=== PATIENT | female | born 1950 | race Caucasian/White ===

== ENCOUNTER 2019-09-10 08:01 | Day surgery (SDC) | payer MEDICARE, OTHER ==
[2019-09-08 15:08] LABS: Basophils # (auto) 0 10 ^3/uL (0-0.2); Basophils % (auto) 0.6 % (0.0-2.0); Eosinophils # (auto) 0 10 ^3/uL (0-0.8); Eosinophils % (auto) 0.6 % (0.0-7.0); Hematocrit 40.9 % (36.0-46.0); Hemoglobin 13.5 g/dL (12.2-16.2); Lymphocytes % (auto) 12.9 % (10.0-50.0); Mean Corpuscular Hemoglobin 31.9 pg (28.0-32.0); Mean Corpuscular Hgb Conc. 32.9 g/dL (32.0-36.0); Mean Corpuscular Volume 96.7 fL (80.0-100.0); Monocytes # (auto) 0.4 10 ^3/uL (0-1.3); Monocytes % (auto) 4.9 % (0.0-12.0); Neutrophils # (auto) 6.1 10 ^3/uL (1.6-8.6); Platelet Count (auto) 261 10^3/uL (140-450); Red Blood Cells 4.23 10^6/uL (4.0-5.20); Red Cell Distribution Width 13.7 % (11.8-14.3); White Blood Cell 7.6 10^3/uL (4.4-10.8)
[2019-09-08 15:27] LABS: INR 0.96 (0.9-1.15); Partial Thromboplastin Time 27.2 sec (23.64-32.05)
[~2019-09-10] VITALS: Ht 154.9 cm; Wt 70.3 kg
[~2019-09-10 08:01] MED LIST: ADAL20KI SC; ALPR0.254 PO; ATOR20TA50 PO; DICY20TA66 PO; DISO100C4 PO; ESOM20CA PO; EST0625T PO; LEVO88TA4 PO; PANT40TA2 PO; PRE1T PO; PREMARIN PO
[2019-09-10] MEDS ORDERED: NALOXONE HCL 0.4 MG/ML VIAL ONE (08:31)
[2019-09-10] MEDS ORDERED: SODIUM CHLORIDE LOCK 10 ML ONE (08:31)
[2019-09-10] MEDS ORDERED: FLUMAZENIL 0.1 MG/ML INJ 10ML MDV IV ONE (08:31)
[2019-09-10] MEDS ORDERED: LIDOCAINE VISCOUS 2% 15ML UD ONE (08:32)
[2019-09-10] MEDS ORDERED: diphenhdrAMINE HCL 50 MG/1 ML VL ONE (08:33)
[2019-09-10] MEDS: fentaNYL CITRATE 100 MCG/2 ML VL ONE ×4 (09:03→09:22)
[2019-09-10] MEDS: MIDAZOLAM HCL 5 MG/ML-1ML VIAL ONE ×5 (09:03→09:22)
[2019-09-10 10:02] VITALS: BP 143/65
== END 2019-09-10 10:12 | disposition home or self-care (01) ==
LOC: GI 08:01
PROVIDERS: ATTEND Internal Medicine Gastroenterology
DX: K92.1 Melena (principal); Z11.59 Encounter for screening for other viral diseases; D12.5 Benign neoplasm of sigmoid colon; K29.70 Gastritis, unspecified, without bleeding; K64.8 Other hemorrhoids; Z98.890 Other specified postprocedural states
CPT/HCPCS: 36415; 43239; 45380; 85025; 85610; 85730; 87635; 88305; 88342; J1200; J2250; J3010; J7030; U0003; G0500

== ENCOUNTER 2022-02-20 12:56 | Emergency (ER) | payer MEDICARE, OTHER ==
[~2022-02-20] VITALS: Ht 157.5 cm; Wt 67.9 kg
[~2022-02-20 12:56] MED LIST changes: +DICY20TA PO; -DICY20TA66 PO
[2022-02-20 15:22] VITALS: BP 141/79
[2022-02-20] MEDS ORDERED: HYD1TP TOP (17:09)
== END 2022-02-20 17:25 | disposition home or self-care (01) ==
LOC: ER 12:56
DX: L25.9 Unspecified contact dermatitis, unspecified cause (principal); Z88.6 Allergy status to analgesic agent; Z88.1 Allergy status to other antibiotic agents; Z88.0 Allergy status to penicillin; Z88.2 Allergy status to sulfonamides; Z88.8 Allergy status to other drugs, medicaments and biological substances; Z90.49 Acquired absence of other specified parts of digestive tract
CPT/HCPCS: 73590

== ENCOUNTER 2024-07-14 10:28 | Inpatient (IN) | payer MEDICARE, OTHER ==
[~2024-07-14] VITALS: Ht 160 cm; Wt 71.7 kg
[~2024-07-14 10:28] MED LIST changes: +CYAN100088 PO; +HYD1TP TOP; +LEFL20TA PO
--- NOTE | 2024-07-14 10:37 | ED.PDOC ---
History of Present Illness HPI Comments 74 year old female BRITTANIE presents to the ED with chief complaint of flu-like symptoms and syncope. EMS reports patient has been experiencing flu-like symptoms that include cough, nasal congestion, SOB, nausea, vomiting, and diarrhea for the past week now. EMS relays that the patient also had a syncopal episode with fall when going to the bathroom today, believing that she fell on both of her knees. EMS notes patient's O2 saturation was at 91% on RA, 97% on 4L of O2 via NC. Patient denies any chest pain, dizziness, fever, chills, abdominal pain, numbness, or weakness. Time Seen by MD: 10:33 Primary Care Provider: NAA Reviewed Notes: Nurses Notes, Computer Aide Notes, Medications, Allergies Allergies: Coded Allergies: Aspirin (Verified Allergy, Unknown, 09/08/19) Clarithromycin (Verified Allergy, Unknown, 09/08/19) Clindamycin (Verified Allergy, Unknown, 09/08/19) Doxycycline (Verified Allergy, Unknown, 09/08/19) Levofloxacin (Verified Allergy, Unknown, 09/08/19) Metoprolol (Verified Allergy, Unknown, 09/08/19) Nitrofurantoin (Verified Allergy, Unknown, 09/08/19) Penicillins (Verified Allergy, Unknown, 09/08/19) Sulfa Drugs (Verified Allergy, Unknown, 09/08/19) Sulfamethoxazole w/Trimethoprim (Verified Allergy, Unknown, 09/08/19) Tetracycline (Verified Allergy, Unknown, 09/08/19) Uncoded Allergies: NITRO (Allergy, Unknown, 07/14/24) PENICILLIN (Allergy, Unknown, 07/14/24) SULFA (Allergy, Unknown, 07/14/24) Home Meds Active Scripts Hydrocortone (Hydrocortisone 1%) 1 Applic Ap, 1 APPLIC TOP BID for 7 Days, #30 GRAMS 0 Refills Prov:SARA KEVIN [employer]ING SUPERVISOR 02/20/22 Reported Medications Esomeprazole Magnesium Trihydr (Nexium) 20 Mg Cap, 1 CAP PO DAILY PRN for HEARTBURN, #30 CAP 2 Refills 09/08/19 Atorvastatin Calcium (ATORVASTATIN CALCIUM) 20 Mg Tab, 1 TAB PO DAILY, #30 TAB 5 Refills 09/08/19 Levothyroxine Sodium (Levothyroxine Sodium) 88 Mcg Tab, 88 MCG PO QAM for 30 Days, MCG 09/08/19 Alprazolam (Alprazolam) 0.25 Mg Tab, 1 TAB PO BID PRN for ANXIETY, #60 TAB 09/08/19 Dicyclomine Hcl (Dicyclomine Hcl) 20 Mg Tab, 20 MG PO QID PRN for ABD CRAMPING for 30 Days, MG 09/08/19 Pantoprazole Sodium Sesquihydr (Protonix) 40 Mg Tab, 40 MG PO DAILY, #30 TAB 09/08/19 Estrogens, Conjugated (PREMARIN TABLET) 0.625 Mg Tb, 0.625 MG PO DAILY, MG 09/08/19 Prednisone (PREDNISONE) 1 Mg Tb, 4 TAB PO DAILY, #360 TAB 3 Refills 09/08/19 Adalimumab (Humira) Unknown Strength Kit, SC QWEEKLY, KIT 09/08/19 Disopyramide Phosphate (Disopyramide Phosphate) 100 Mg Cap, 100 MG PO BID, CAP 09/08/19 [Premarin] No Conflict Check, 0.625 MG PO BID 04/14/12 Information Source: Patient, Emergency Med Personnel Mode of Arrival: EMS Severity: Moderate Timing: Days Duration: Since onset Prehospital treatment: None Past Medical History PAST MEDICAL HISTORY: HTN, [place], UTI'S Surgical History: Cholecystectomy [employer]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 History Family History Family History: Unknown Social History Smoker: Non-Smoker Alcohol: Denies ETOH Use Drugs: Denies Drug Use Lives In: Home Constitutional: denies: chills, diaphoresis, fatigue, fever, malaise, sweats, weakness, others EENTM: reports: nose congestion; denies: blurred vision, double vision, ear bleeding, ear discharge, ear drainage, ear pain, ear ringing, eye pain, eye redness, hearing loss, mouth pain, mouth swelling, nasal discharge, nose bl eeding, nose pain, photophobia, tearing, throat pain, throat swelling, voice changes, others Respiratory: reports: cough, shortness of breath; denies: hemoptysis, orthopnea, SOB at rest, SOB with excertion, stridor, wheezing, others Cardiovascular: reports: syncope; denies: chest pain, dizzy spells, diaphoresis, Dyspnea on exertion, edema, irregular heart beat, left arm pain, lightheadedness, palpitations, PND, others Gastrointestinal: reports: diarrhea, nausea, vomiting; denies: abdomen distended, abdominal pain, blood streaked bowels, constipated, dysphagia, difficulty swallowing, hematemesis, melena, poor appetite, poor fluid intake, rectal bleeding, rectal pain, others Genitourinary: denies: abnormal vagina bleeding, burning, dyspareunia, dysuria, flank pain, frequency, hematuria, incontinence, pain, , vagina discharge, urgency, others Neurological: denies: dizziness, fainting, headache, left sided numbness, left sided weakness, numbness, paresthesia, pre-existing deficit, right sided numbness, right sided weakness, seizure, speech problems, tingling, tremors, weakness, others Musculoskeletal: reports: others (Bilateral knee pain); denies: back pain, gout, joint pain, joint swelling, muscle pain, muscle stiffness, neck pain Integumetry: denies: bruises, change in color, change in hair/nails, dryness, laceration, lesions, lumps, rash, wounds, others Allergic/Immunocompromised: denies: Difficulty Healing, Frequent Infections, Hives, Itching, others Hematologic/Lymphatic: denies: anemia, blood clots, easy bleeding, easy bruising, swollen glands, others Endocrine: denies: excessive hunger, excessive sweating, excessive thirst, excessive urination, flushing, intolerance to cold, intolerance to heat, unexplained weight gain, unexplained weight loss, others Psychiatric: denies: anxiety, bipolar disorder, depression, hopeless, panic disorder, schizophrenia, sleepless, suicidal, others All Other Systems: Reviewed and Negative Physical Exam General Appearance: Moderate Distress, Normal HEENT: Normal ENT Inspection, PERRL/EOMI Neck: Full Range of Motion, Non-Tender, Normal, Normal Inspection Respiratory: Chest Non-Tender, Respiratory Distress, Other (Coarse breath sounds) Cardiovascular: No Edema, No JVD, No Murmur, No Gallop, Normal Peripheral Pulses, Tachycardia Breast Exam: Deferred Gastrointestinal: No Organomegaly, Non Tender, No Pulsatile Mass, Normal Bowel Sounds, Soft Genitalia: Deferred Pelvic: Deferred Rectal: Deferred Extremities: No calf tenderness, Normal capillary refill, Normal inspection, Normal range of motion, Non-tender, No pedal edema Musculoskeletal : Apperance: Normal Neurologic: Alert, 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 Was a procedure done?: No Differential Dx Considerations may include: Pneumonitis Electrolyte imbalance X-Ray, Labs, Meds, VS Vital Signs Date Time Temp Pulse Resp B/P (MAP) Pulse Ox O2 Delivery O2 Flow Rate FiO2 07/14/24 11:04 98.0 124 20 122/61 (81) 97 98.0 07/14/24 10:31 122 Lab Test 07/14/24 11:14 Range/Units White Blood Count 6.6 4.4-10.8 10^3/uL Red Blood Count 4.15 4.0-5.20 10^6/uL Hemoglobin 13.5 12.2-16.2 g/dL Hematocrit 40.3 36.0-46.0 % Mean Corpuscular Volume 97.2 80.0-100.0 fL Mean Corpuscular Hemoglobin 32.5 H 28.0-32.0 pg Mean Corpuscular Hemoglobin Concent 33.5 32.0-36.0 g/dL Red Cell Distribution Width 14.4 H 11.8-14.3 % Platelet Count 182 140-450 10^3/uL Mean Platelet Volume 8.2 6.9-10.8 fL Neutrophils (%) (Auto) 69.7 37.0-80.0 % Lymphocytes (%) (Auto) 13.0 10.0-50.0 % Monocytes (%) (Auto) 16.9 H 0.0-12.0 % Eosinophils (%) (Auto) 0.1 0.0-7.0 % Basophils (%) (Auto) 0.3 0.0-2.0 % Neutrophils # (Auto) 4.6 1.6-8.6 10 ^3/uL Lymphocytes # (Auto) 0.9 0.4-5.4 10 ^3/uL Monocytes # (Auto) 1.1 0-1.3 10 ^3/uL Eosinophils # (Auto) 0 0-0.8 10 ^3/uL Basophils # (Auto) 0 0-0.2 10 ^3/uL Nucleated Red Blood Cells 0.6 % Sodium Level 135 L 136-145 mmol/L Potassium Level 3.7 3.5-5.1 mmol/L Chloride Level 100 98-107 mmol/L Carbon Dioxide Level 26 20-31 mmol/L Anion Gap 9 5-15 Blood Urea Nitrogen 14 9-23 mg/dL Creatinine 1.08 H 0.550-1.02 mg/dL Glomerular Filtration Rate Calc 54 >90 mL/min BUN/Creatinine Ratio 13.0 10.0-20.0 Serum Glucose 78 74-106 mg/dL Calcium Level 8.6 L 8.7-10.4 mg/dL Troponin I High Sensitivity 266 *H </=34 ng/L Patient alert. Complaining of shortness a breath. Tachycardia. Placed on oxygen. Possible pneumonitis. Possible pneumonia. Establish intravenous access. Was given steroid. Explained to the patient. Continue monitoring. EKG reviewed does not show any acute changes. Chest XR: FINDINGS: Lines and Tubes: None Lungs: No focal consolidation. Pleura: No effusion. No pneumothorax. Cardiomediastinal contours: Unremarkable Bones: No acute osseous abnormality. IMPRESSION: No acute cardiopulmonary disease. Time of 1ST Reevaluation: 11:33 Reevaluation 1ST: Unchanged Patient Education/Counseling: Diagnosis, Treatment Family Education/Counseling: No Family Present Additional Information Previous visit documents reviewed: 02/20/22 contact dermatitis The following tests were ordered, and results were reviewed by me: Additional Information was gathered from interviewing the following independent historians: EMS I reviewed and agreed with the following test results read by other providers: I discussed treatment and results with medical personnel and: Patient Departure 1 Departure Time of Disposition: 10:57 Impression: Primary Impression: Pneumonitis Additional Impression: Near syncope Disposition: ADMITTED INPATIENT Admit to: Med Surg Condition: Guarded Critical Care Note Critical Care Time?: Yes (90 min-critical care time only) Critical care comment: Placed on oxygen Stability Stability form required: No Heart Score Heart Score: Heart Score Response (Comments) Value History Slightly Suspicious 0 EKG Normal 0 Age >65 2 Risk Factors >3 or Hx ASHD 2 Troponin Normal limit 0 Total 4 I personally scribed for RAJEEV WALDROP MD ([email or web address]) on 07/14/24 at 10:37. Electronically submitted by Colby Deutsch ([email or web address]). I personally scribed for RAJEEV WALDROP MD ([email or web address]) on 07/14/24 at 13:16. Electronically submitted by Colby Deutsch ([email or web address]). RAJEEV WALDROP MD Jul 14, 2024 10:37
--- NOTE | 2024-07-14 10:51 | ECG ---
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
[2024-07-14 11:39] LABS: Chloride 100 mmol/L (98-107); Potassium 3.7 mmol/L (3.5-5.1)
[2024-07-14 11:40] LABS: Anion Gap 9 (5-15); Carbon Dioxide 26 mmol/L (20-31)
[2024-07-14 11:44] LABS: Basophils # (auto) 0 10 ^3/uL (0-0.2); Basophils % (auto) 0.3 % (0.0-2.0); Eosinophils # (auto) 0 10 ^3/uL (0-0.8); Eosinophils % (auto) 0.1 % (0.0-7.0); Hematocrit 40.3 % (36.0-46.0); Hemoglobin 13.5 g/dL (12.2-16.2); Lymphocytes # (auto) 0.9 10 ^3/uL (0.4-5.4); Mean Corpuscular Hemoglobin 32.5 pg (28.0-32.0); Mean Corpuscular Hgb Conc. 33.5 g/dL (32.0-36.0); Mean Corpuscular Volume 97.2 fL (80.0-100.0); Monocytes # (auto) 1.1 10 ^3/uL (0-1.3); Monocytes % (auto) 16.9 % (0.0-12.0); Neutrophils # (auto) 4.6 10 ^3/uL (1.6-8.6); Neutrophils % (auto) 69.7 % (37.0-80.0); Nucleated Red Blood Cells % 0.6 %; Platelet Count (auto) 182 10^3/uL (140-450); Red Blood Cells 4.15 10^6/uL (4.0-5.20); Red Cell Distribution Width 14.4 % (11.8-14.3); White Blood Cell 6.6 10^3/uL (4.4-10.8)
[2024-07-14 11:45] LABS: Blood Urea Nitrogen 14 mg/dL (9-23); Glucose 78 mg/dL (74-106)
[2024-07-14 11:48] LABS: Calcium 8.6 mg/dL (8.7-10.4); Sodium 135 mmol/L (136-145)
--- NOTE | 2024-07-14 12:31 | DVH ---
EXAM: XY CHEST PORTABLE Indication: cough Technique: Single frontal view of the chest was obtained Comparison: None FINDINGS: Lines and Tubes: None Lungs: No focal consolidation. Pleura: No effusion. No pneumothorax. Cardiomediastinal contours: Unremarkable Bones: No acute osseous abnormality. IMPRESSION: No acute cardiopulmonary disease.
[2024-07-14] MEDS ORDERED: ACETAMINOPHEN 325 MG TAB PO PRN (15:45)
[2024-07-14] MEDS ORDERED: MORPHINE SULFATE INJ 2 MG/ml SYRG IV PRN (15:45)
[2024-07-14] MEDS ORDERED: NITROGLYCERIN 0.4 MG SL TAB SL PRN (15:45)
[2024-07-14] MEDS ORDERED: ALPRAZolam 0.25 MG TAB PO PRN (15:45)
[2024-07-14] MEDS ORDERED: DOCUSATE SOD 100 MG CAP PO PRN (15:45)
[2024-07-14] MEDS ORDERED: HYDROcodone-ACET 5/325MG TAB PO PRN (15:45)
--- NOTE | 2024-07-14 16:05 | DVHHP2 ---
History of Present Illness Reason for Visit: Syncope and collapse History of Present Illness The patient is a 74-year-old female with past medical history of OH, UTIs, and hypertension who presented to [facility] ED for evaluation of syncope and collapse. As reported by patient, she was experiencing flu-like symptoms including cough, nasal congestion, shortness of breath, nausea, vomiting, diarrhea, had syncopal episode with a fall when going to the bathroom. Patient was seen and evaluated in the ED, laboratory data shows WBC 6.6, platelets 182, sodium 135, potassium 3.7, BUN 14, creatinine 1.08, GFR 54, glucose 78, troponin 266, calcium 8.6. Head CT revealing severe small focal area of decreased attenuation deep white matter left parietal lobe, small old lacunar infarct left thalamus, no acute intracranial hemorrhage, knee x-ray, cervical spine x-ray reports showed no evidence of fracture or dislocation. Please see medication orders section in the computer. On my assessment, patient denied chest pain, no headache, no dizziness, no diaphoresis, no abdominal pain, no nausea, no vomiting, no fever, no chills. Patient was admitted for further evaluation and medical management. Past Medical History HTN, OH, UTI'S Past Surgical History Cholecystectomy Family History Reviewed, noncontributory to the management of this case. Past Social History The patient lives at home, denies smoking, alcohol or illicit drugs abuse. Review of Systems Constitutional: Yes: Weakness; No: Fever, Chills, Sweats, Malaise, Other Eyes: No: Pain, Vision change, Conjunctivae inflammation, Eyelid inflammation, Other, Redness ENT: Nose congestion; No: Ear pain, Ear discharge, Nose pain, Nose discharge, Mouth pain, Mouth swelling, Throat pain, Throat swelling, Other Respiratory: Shortness of breath; No: Cough, Dry, SOB with excertion, Wheezing, Hemoptysis, Pleuritic Pain, Sputum, Wheezing, Other Cardiovascular: Other (Syncope); No: Chest Pain, Palpitations, Orthopnea, Paroxysmal Noc. Dyspnea, Edema, Lt Headedness Gastrointestinal: Nausea, Vomiting, Diarrhea; No: Abdominal Pain, Constipation, Melena, Hematochezia, Other Genitourinary: No Dysuria, No Frequency, No Incontinence, No Hematuria, No Retention, No Other Musculoskeletal: other (Bilateral knee pain); No: neck pain, shoulder pain, arm pain, back pain, hand pain, leg pain, foot pain Skin: No: Rash, Lesions, Jaundice, Bruising, Other Neurological: No: Weakness, Numbness, Incoordination, Change in speech, Confusion, Seizures, Other Allergies: Coded Allergies: Aspirin (Verified Allergy, Unknown, 09/08/19) Clarithromycin (Verified Allergy, Unknown, 09/08/19) Clindamycin (Verified Allergy, Unknown, 09/08/19) Doxycycline (Verified Allergy, Unknown, 09/08/19) Levofloxacin (Verified Allergy, Unknown, 09/08/19) Metoprolol (Verified Allergy, Unknown, 09/08/19) Nitrofurantoin (Verified Allergy, Unknown, 09/08/19) Penicillins (Verified Allergy, Unknown, 09/08/19) Sulfa Drugs (Verified Allergy, Unknown, 09/08/19) Sulfamethoxazole w/Trimethoprim (Verified Allergy, Unknown, 09/08/19) Tetracycline (Verified Allergy, Unknown, 09/08/19) Uncoded Allergies: NITRO (Allergy, Unknown, 07/14/24) PENICILLIN (Allergy, Unknown, 07/14/24) SULFA (Allergy, Unknown, 07/14/24) Exam Vital Signs Vital Signs Date Time Temp Pulse Resp B/P (MAP) Pulse Ox O2 Delivery O2 Flow Rate FiO2 07/14/24 11:04 98.0 124 20 122/61 (81) 97 98.0 General Appearance: Alert, Oriented X3, Cooperative, No acute distress HEENT: Atraumatic, PERRLA, EOMI, Mucous membr. moist/pink Respiratory: Clear to auscultation, Normal air movement Cardiovascular: Regular rate, Normal S1, Normal S2, No murmurs Abdominal: Normal bowel sounds, Soft, No tenderness, No hepatospenomegaly, No masses Extremities: No clubbing, No cyanosis, No edema, Normal pulses, No tenderness/swelling, Other (Bilateral knee tenderness) Skin: No rashes, No breakdown, No significant lesion Neuro: Normal speech, Normal tone, Sensation intact, Cranial nerves 3-12 NL, Reflexes 2+, Other (Generalized weakness) Psych/Mental Status: Mental status NL, Mood NL Labs/Xrays Labs Test 07/14/24 11:14 Range/Units White Blood Count 6.6 4.4-10.8 10^3/uL Red Blood Count 4.15 4.0-5.20 10^6/uL Hemoglobin 13.5 12.2-16.2 g/dL Hematocrit 40.3 36.0-46.0 % Mean Corpuscular Volume 97.2 80.0-100.0 fL Mean Corpuscular Hemoglobin 32.5 H 28.0-32.0 pg Mean Corpuscular Hemoglobin Concent 33.5 32.0-36.0 g/dL Red Cell Distribution Width 14.4 H 11.8-14.3 % Platelet Count 182 140-450 10^3/uL Mean Platelet Volume 8.2 6.9-10.8 fL Neutrophils (%) (Auto) 69.7 37.0-80.0 % Lymphocytes (%) (Auto) 13.0 10.0-50.0 % Monocytes (%) (Auto) 16.9 H 0.0-12.0 % Eosinophils (%) (Auto) 0.1 0.0-7.0 % Basophils (%) (Auto) 0.3 0.0-2.0 % Neutrophils # (Auto) 4.6 1.6-8.6 10 ^3/uL Lymphocytes # (Auto) 0.9 0.4-5.4 10 ^3/uL Monocytes # (Auto) 1.1 0-1.3 10 ^3/uL Eosinophils # (Auto) 0 0-0.8 10 ^3/uL Basophils # (Auto) 0 0-0.2 10 ^3/uL Nucleated Red Blood Cells 0.6 % Sodium Level 135 L 136-145 mmol/L Potassium Level 3.7 3.5-5.1 mmol/L Chloride Level 100 98-107 mmol/L Carbon Dioxide Level 26 20-31 mmol/L Anion Gap 9 5-15 Blood Urea Nitrogen 14 9-23 mg/dL Creatinine 1.08 H 0.550-1.02 mg/dL Glomerular Filtration Rate Calc 54 >90 mL/min BUN/Creatinine Ratio 13.0 10.0-20.0 Serum Glucose 78 74-106 mg/dL Calcium Level 8.6 L 8.7-10.4 mg/dL Troponin I High Sensitivity 266 *H </=34 ng/L PATIENT: FAHEEM WEINSTEIN ACCT: [id number] UNIT: [id number] : 1950 LOC: OVERFLOW ROOM / BED: 1016-ERT / A AGE / SEX: 74 / F ADM STATUS: ADM IN SERVICE 1555 ORDERING PHYSICIAN: RAJEEV WALDROP MD PROCEDURE(s): HWOCT - HEAD WITHOUT CONTRAST REASON: syncope ORDER NUMBER(s): [id number], ACCESSION NUMBER(s): [id number] EXAM: CT HEAD WITHOUT CONTRAST INDICATION: syncope TECHNIQUE: CT of the head without intravenous contrast. Radiation Dose Information: CT Dose: CTDI volume is 57.28 mGy. Dose-length product is 1014.2 mGy*cm The dose indicators for CT are the volume Computed Tomography (CT) Dose Index (CTDIvol) and the Dose Length Product (DLP), and are measured in units of mGy and mGy-cm, respectively. These indicators are not patient dose, but values generated from the CT scanner acquisition factors. The report includes radiation exposure data for exposures received during this examination. COMPARISON: None FINDINGS: There is no evidence of acute intracranial hemorrhage, extra-axial collection, mass effect, midline shift, herniation or hydrocephalus. Deep white matter ischemia in the left parietal lobe. Small area of deep white matter ischemia in the right frontal lobe Small focal lacunar infarct in the left thalamus The ventricles, sulci and cisterns are age appropriate. The britt-white differentiation is intact. Patchy periventricular and subcortical white matter hypoattenuation is nonspecific but may be related to small vessel ischemic disease. The visualized paranasal sinuses and mastoid air cells are clear. The surrounding soft tissues and osseous structures are unremarkable. IMPRESSION: 1. No acute intracranial hemorrhage 2. Several small focal areas of decreased attenuation deep white matter left parietal lobe. 3. Small old lacunar infarct left thalamus. ORDERING PHYSICIAN: RAJEEV WALDROP MD PROCEDURE(s): CERV2 - CERVICAL SPINE 3V REASON: fall ORDER NUMBER(s): [id number], ACCESSION NUMBER(s): [id number] CLINICAL INDICATION: fall TECHNIQUE: 3 radiographic views of the cervical spine were obtained. Comparison: None FINDINGS/IMPRESSION: 7 [id number] cervical type vertebrae. Mild reversal of the cervical lordosis. The vertebral body heights are relatively maintained. Grade 1 anterolisthesis of C2 on C3 and C3 on C4 with grade 1 retrolisthesis of C5 on C6 of unknown chronicity. No evidence of acute traumatic fractures. There appears to be widening of the atlanto dental interval up to [address] cervical spine is recommended for further evaluation. ORDERING PHYSICIAN: LEATHA HOLLOWAY DNP PROCEDURE(s): RKNE2 - R KNEE 2V XRAY REASON: Knee pain ORDER NUMBER(s): [id number], ACCESSION NUMBER(s): [id number] CLINICAL INDICATION: Knee pain TECHNIQUE: 2 radiographic views of the right knee were obtained. Comparison: None FINDINGS/IMPRESSION: There is no evidence of acute fracture or dislocation. Severe medial and lateral compartment degenerative changes of the knee. Mild patellofemoral degenerative changes Small suprapatellar effusion. Nonspecific calcifications of the suprapatellar region. Vascular calcification is noted ORDERING PHYSICIAN: LEATHA HOLLOWAY DNP PROCEDURE(s): LKNE2 - L KNEE 2V XRAY REASON: Knee pain ORDER NUMBER(s): [id number], ACCESSION NUMBER(s): [id number] CLINICAL INDICATION: Knee pain TECHNIQUE: 2 radiographic views of the left knee were obtained. Comparison: None FINDINGS/IMPRESSION: There is no evidence of acute fracture or dislocation. Moderate to severe medial and lateral compartment knee degenerative changes. Osteophytic changes of the tibial spine. Trace suprapatellar effusion with mild anterior knee and the distal thigh soft tissue edema. ORDERING PHYSICIAN: RAJEEV WALDROP MD PROCEDURE(s): CXRP - CHEST PORTABLE REASON: cough ORDER NUMBER(s): [id number], ACCESSION NUMBER(s): [id number] EXAM: XY CHEST PORTABLE Indication: cough Technique: Single frontal view of the chest was obtained Comparison: None FINDINGS: Lines and Tubes: None Lungs: No focal consolidation. Pleura: No effusion. No pneumothorax. Cardiomediastinal contours: Unremarkable Bones: No acute osseous abnormality. IMPRESSION: No acute cardiopulmonary disease. Assessment/Plan Assessment/Plan Syncope and collapse Nausea and vomiting Elevated troponin Bilateral knee pain Generalized weakness Plan 1. Admit to telemetry unit 2. Breathing treatment 3. Pain control management 4. Management of fluids and electrolytes 5. Consultation for hospitalist 6. Diagnostic tests-head CT 7. DVT prophylaxis -on Plavix 8. Repeat labs CBC, CMP in a.m. 9. Continue with current medical management 10. Treatment plan discussed with patient and RN. Patient verbalized understanding. Plan discussed with: Patient, Other (RN) Problem List: (1) Syncope and collapse (2) Nausea and vomiting (3) Elevated troponin (4) Bilateral knee pain (5) Generalized weakness Date of Service: Jul 14, 2024 Billing Provider: LEATHA HOLLOWAY DNP Common Visit Codes: 70707-UOFACNZ INP/OBS CARE (HIGH) LEATHA HOLLOWAY DNP Jul 14, 2024 16:04
--- NOTE | 2024-07-14 16:32 | DVH ---
CLINICAL INDICATION: fall TECHNIQUE: 3 radiographic views of the cervical spine were obtained. Comparison: None FINDINGS/IMPRESSION: 7 [id number]-cvz-ozuhssd cervical type vertebrae. Mild reversal of the cervical lordosis. The vertebral body heights are relatively maintained. Grade 1 anterolisthesis of C2 on C3 and C3 on C4 with grade 1 ret rolisthesis of C5 on C6 of unknown chronicity. No evidence of acute traumatic fractures. There appears to be widening of the atlanto dental interva l up to [address] cervical spine is recommended for further evaluation.
--- NOTE | 2024-07-14 16:44 | DVH ---
CLINICAL INDICATION: Knee pain TECHNIQUE: 2 radiographic views of the left knee were obtained. Comparison: None FINDINGS/IMPRESSION: There is no evidence of acute fracture or dislocation. Moderate to severe medial and lateral compartm ent knee degenerative changes. Osteophytic changes of the tibial spine. Trace suprapatellar effusion with mild anterior knee and the distal thigh soft tissue edema.
--- NOTE | 2024-07-14 16:45 | DVH ---
CLINICAL INDICATION: Knee pain TECHNIQUE: 2 radiographic views of the right knee were obtained. Comparison: None FINDINGS/IMPRESSION: There is no evidence of acute fracture or dislocation. Severe medial and lateral compartment degenerative changes of the knee. Mild patellofemoral degenerat juaquin changes Small suprapatellar effusion. Nonspecific calcifications of the suprapatellar region. Vascular calcification is noted
--- NOTE | 2024-07-14 16:48 | DVH ---
EXAM: CT HEAD WITHOUT CONTRAST INDICATION: syncope TECHNIQUE: CT of the head without intravenous contrast. Radiation Dose Information: CT Dose: CTDI volume is 57.28 mGy. Dose-length product is 1014.2 mGy*cm The dose indicators for CT are the volume Computed Tomography (CT) Dose Index (CTDIvol) and the Dose Length Product (DLP), and are measured in units of mGy and mGy-cm, respectively. These indicators are not patient dose, but values generated from the CT scanner acquisition factors. The report includes radiation exposure data for exposures received during this examination. COMPARISON: None FINDINGS: There is no evidence of acute intracranial hemorrhage, extra-axial collection, mass effect, midline s hift, herniation or hydrocephalus. Deep white matter ischemia in the left parietal lobe. Small area of deep white matter ischemia in th e right frontal lobe Small focal lacunar infarct in the left thalamus The ventricles, sulci and cisterns are age appropriate. The britt-white differentiation is intact. Patchy periventricular and subcortical white matter hypoattenuation is nonspecific but may be related to small vessel ischemic disease. The visualized paranasal sinuses and mastoid air cells are clear. The surrounding soft tissues and osseous structures are unremarkable. IMPRESSION: 1. No acute intracranial hemorrhage 2. Several small focal areas of decreased attenuation deep white matter left parietal lobe. 3. Small old lacunar infarct left thalamus.
[2024-07-14] MEDS: SODIUM CHLORIDE 0.9% 1,000 ML IV SCH (16:56)
[2024-07-14 17:00] VITALS: PULSE 118; RESP 16; O2SAT 96
[2024-07-14] MEDS: methylPREDNISolone SOD SUCC 125 MG/2 ML VL IV ONE (17:12)
[2024-07-14 19:56] VITALS: PULSE 121; RESP 28; O2SAT 92
[2024-07-14] MEDS: ATORVASTATIN 20 MG TAB PO SCH (20:50)
[2024-07-15] VITALS (7 sets, daily range): BP systolic 111–125; BP diastolic 68–75; PULSE 60–106; RESP 17–20; TEMP 97.6–98.3; O2SAT 91–96
[2024-07-15 00:01] LABS: Urine Bacteria FEW /hpf (None Seen); Urine Blood Negative /uL (Negative); Urine Clarity Clear (Clear); Urine Color Light-Yellow (Yellow); Urine Protein, UAD Negative (Negative); Urine Specific Gravity 1.007 (1.001-1.035); Urine Squamous Epithelial Cell FEW /hpf (<5); Urine Urobilinogen Normal (Negative); Urine WBC 19 /HPF (0-5)
[2024-07-15 03:13] LABS: Rapid Influenza A Negative (Negative); Rapid Influenza B Negative (Negative)
[2024-07-15 03:15] LABS: COVID19 ANTIGEN SOFIA FIA POSITIVE (NEGATIVE)
[2024-07-15] MEDS: LEVOTHYROXINE SODIUM 88 MCG TAB PO SCH (07:06)
[2024-07-15] MEDS: CLOPIDOGREL BISULFATE 75 MG TAB PO SCH (10:00)
[2024-07-15 10:11] LABS: Basophils # (auto) 0 10 ^3/uL (0-0.2); Basophils % (auto) 0.2 % (0.0-2.0); Eosinophils # (auto) 0 10 ^3/uL (0-0.8); Hematocrit 41.8 % (36.0-46.0); Lymphocytes # (auto) 0.9 10 ^3/uL (0.4-5.4); Lymphocytes % (auto) 12.8 % (10.0-50.0); Mean Corpuscular Hemoglobin 32.4 pg (28.0-32.0); Mean Corpuscular Hgb Conc. 33.4 g/dL (32.0-36.0); Mean Corpuscular Volume 97.2 fL (80.0-100.0); Monocytes # (auto) 0.6 10 ^3/uL (0-1.3); Monocytes % (auto) 8.9 % (0.0-12.0); Neutrophils # (auto) 5.3 10 ^3/uL (1.6-8.6); Neutrophils % (auto) 78.1 % (37.0-80.0); Nucleated Red Blood Cells % 0.1 %; Platelet Count (auto) 194 10^3/uL (140-450); Red Cell Distribution Width 14.5 % (11.8-14.3); White Blood Cell 6.8 10^3/uL (4.4-10.8)
[2024-07-15] MEDS: cefTRIAXone 1GM/50ML D5W 50 ML IV ONE (10:15)
[2024-07-15] MEDS ORDERED: MORPHINE SULFATE INJ 2 MG/ml SYRG IV PRN (10:15)
--- NOTE | 2024-07-15 10:23 | DVHPN2 ---
Progress Note Date Seen: Jul 15, 2024 Medical Necessity Reason Pt with a Central, PICC or Fol: No Subjective Patient reports: No new complaints Review of Systems: HEENT:Normal, CVS:Normal, RESPIRATORY:Normal, GI:Normal, :Normal, MSK:Normal, NEURO:Normal Objective vital signs Vital Sign Date Time Temp Pulse Resp B/P (MAP) Pulse Ox O2 Delivery O2 Flow Rate FiO2 07/15/24 08:30 98.3 60 19 125/69 (87) 91 98.3 07/15/24 08:03 Nasal Cannula* 3 32 medications Current Medications Medications Dose Ordered Sig/Quinn Route Start Time Stop Time Status Last Admin Dose Admin Alprazolam 0.25 mg Q8HP PRN PO 07/14/24 15:45 Atorvastatin Calcium 20 mg HS PO 07/14/24 22:00 07/14/24 20:50 20 MG Levothyroxine Sodium 88 mcg QAM@0600 PO 07/15/24 06:00 07/15/24 07:06 88 MCG Pantoprazole Sodium 40 mg DAILY IV 07/15/24 10:00 Clopidogrel Bisulfate 75 mg DAILY PO 07/15/24 10:00 Sodium Chloride 1,000 ml @ 60 mls/hr [id number] IV 07/14/24 15:45 07/14/24 16:56 60 MLS/HR Acetaminophen/ Hydrocodone Bitart 1 tab Q4HP PRN PO 07/14/24 15:45 Ondansetron HCl 4 mg Q4HP PRN IV 07/14/24 15:45 Docusate Sodium 100 mg BIDPRN PRN PO 07/14/24 15:45 Acetaminophen 650 mg Q6HP PRN PO 07/14/24 15:45 Nitroglycerin 0.4 mg Q5MINP PRN SL 07/14/24 15:45 Morphine Sulfate 2 mg Q30M PRN IV 07/14/24 15:45 Examination: GENERAL:Normal, HEENT:Normal, NECK:Normal, LUNGS:Normal, LUNGS:Abnormal (on oxygen), CVS:Normal, ABDOMEN:Normal, MSK:Normal, MSK:Abnormal (left knee bruising, swelling), SKIN:Normal, NEURO:Normal, :Normal laboratory and microbiology Laboratory Tests 07/15/24 09:40 Test 07/15/24 09:40 Range/Units Serum Glucose Pending Problem List/Assessment/Plan Problem List/Assessment/Plan #1 acute resp failure: cont oxygen #2 covid 19 pneumonia with sepsis: iv antibiotics, iv steroids #3 diarrhea: check c diff #4 hypothyroidism #5 left knee bruise/trauma #6 nstemi: cardio eval #7 uti: culture #8 RA #9 Ulcerative colitis #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
[2024-07-15 11:21] LABS: Albumin 3.7 g/dL (3.2-4.8); Alkaline Phosphatase 54 U/L (46-116); Anion Gap 10 (5-15); BUN/Creatinine Ratio 24.2 (10.0-20.0); Blood Urea Nitrogen 22 mg/dL (9-23); Calcium 8.8 mg/dL (8.7-10.4); Carbon Dioxide 24 mmol/L (20-31); Chloride 105 mmol/L (98-107); Glucose 102 mg/dL (74-106); Potassium 4.4 mmol/L (3.5-5.1); Sodium 139 mmol/L (136-145); Total Protein 5.8 g/dL (5.7-8.2)
[2024-07-15] MEDS: PANTOPRAZOLE 40 MG/10 ML VIAL INJ IV SCH (11:21)
[2024-07-15 11:22] LABS: Bilirubin, Total 0.5 mg/dL (0.2-1.0)
[2024-07-15 11:27] LABS: Alanine Aminotransferase 55 U/L (7-40); Aspartate Aminotransferase 93 U/L (13-40)
--- NOTE | 2024-07-15 12:52 | ECG ---
[facility] Test Date: 2024-07-14 Test Time: 10:31:24 Pat Name: FAHEEM WEINSTEIN Department: er Room: 0214T B Gender: F Application Project Leader: narda : 1950 Requested By: RAJEEV WALDROP Order Number: [id number] Reading MD: Dagoberto Mcfadden Measurements Intervals [place] Rate: 122 P: 21 MN: 162 QRS: 49 QRSD: 78 T: 18 QT: 320 QTc: 456 Interpretive Statements Sinus tachycardia Anterior infarct, age indeterminate Minimal ST elevation, inferior leads Electronically Signed On 07-15-2024 22:37:42 PDT by Dagoberto Mcfadden Please click the below link to view image of tracing.
--- NOTE | 2024-07-15 13:01 | DVH ---
carotid duplex REASON FOR EXAM: cva TECHNIQUE: Velazquez scale, color doppler imaging and spectral analysis were performed. FINDINGS: On velazquez scale and color imaging there is no plaquing seen in the common carotid arteries b ulbs or in the internal carotid arteries. Velocities are as follows: (measured in cm/S): Right CCA 122 Left CCA 88 Right ICA 140 Left ICA 180 Right ICA/CCA 1.2 Left ICA/CCA 2.0 Flow in the vertebral arteries is antegrade. IMPRESSION: 1. 50-69% diameter stenosis of the right internal carotid artery based on NASCET criteria. 2. No stenosis right carotid system
--- NOTE | 2024-07-15 18:45 | DVHINCON2 ---
Date Seen: Jul 15, 2024 Referring Physician MD Pepe Reason for Consultation NSTEMI History of Present Illness This is a pleasant 74-year-old female who presented to the emergency room with a chief complaint of flu-like symptoms for 7-10 days. The patient reports progressive generalized weakness, cough, congestion, nausea, vomiting, diarrhea, poor appetite, and dizziness. Denies any syncopal events or loss of c onsciousness but reports an event of dizziness where she lost her balance and fell down. Upon EMS arrival she was found with an O2 saturation of 91% on room air for which she was provided with supplemental oxygenation. Denies chest pain, palpitations, or diaphoresis. A 12-lead electrocardiogram revealed a sinus tachycardia rhythm at 122 bpm. Follows up in the outpatient setting with Dr. Griffiths for unknown diagnosis. Denies a history of CHF, CAD, or anticoagulation therapy. Denies undergoing ischemic workup in the past. Significant medical history includes history of CVA, dyslipidemia, hypothyroidism, ulcerative colitis, gout, osteoarthritis, rheumatoid arthritis, scoliosis, and obesity. Past Medical History Past medical history reviewed. No other significant than mentioned above. Past Surgical History Cholecystectomy Hysterectomy Tonsillectomy Bilateral lower extremities Bilateral upper arms Family History Family history reviewed. Social History Denies the use of illicit drugs, alcohol, or tobacco use. Allergies: Coded Allergies: Aspirin (Verified Allergy, Unknown, 09/08/19) Clarithromycin (Verified Allergy, Unknown, 09/08/19) Clindamycin (Verified Allergy, Unknown, 09/08/19) Doxycycline (Verified Allergy, Unknown, 09/08/19) Levofloxacin (Verified Allergy, Unknown, 09/08/19) Metoprolol (Verified Allergy, Unknown, 09/08/19) Nitrofurantoin (Verified Allergy, Unknown, 09/08/19) Penicillins (Verified Allergy, Unknown, 09/08/19) Sulfa Drugs (Verified Allergy, Unknown, 09/08/19) Sulfamethoxazole w/Trimethoprim (Verified Allergy, Unknown, 09/08/19) Tetracycline (Verified Allergy, Unknown, 09/08/19) Uncoded Allergies: NITRO (Allergy, Unknown, 07/14/24) PENICILLIN (Allergy, Unknown, 07/14/24) SULFA (Allergy, Unknown, 07/14/24) Home Meds Active Scripts Hydrocortone (Hydrocortisone 1%) 1 Applic Ap, 1 APPLIC TOP BID for 7 Days, #30 GRAMS 0 Refills Prov:SARA KEVIN ELEVATOR CONSTRUCTOR SUPERVISOR 02/20/22 Reported Medications Esomeprazole Magnesium Trihydr (Nexium) 20 Mg Cap, 1 CAP PO DAILY PRN for HEARTBURN, #30 CAP 2 Refills 09/08/19 Atorvastatin Calcium (ATORVASTATIN CALCIUM) 20 Mg Tab, 1 TAB PO DAILY, #30 TAB 5 Refills 09/08/19 Levothyroxine Sodium (Levothyroxine Sodium) 88 Mcg Tab, 88 MCG PO QAM for 30 Days, MCG 09/08/19 Alprazolam (Alprazolam) 0.25 Mg Tab, 1 TAB PO BID PRN for ANXIETY, #60 TAB 09/08/19 Dicyclomine Hcl (Dicyclomine Hcl) 20 Mg Tab, 20 MG PO QID PRN for ABD CRAMPING for 30 Days, MG 09/08/19 Pantoprazole Sodium Sesquihydr (Protonix) 40 Mg Tab, 40 MG PO DAILY, #30 TAB 09/08/19 Estrogens, Conjugated (PREMARIN TABLET) 0.625 Mg Tb, 0.625 MG PO DAILY, MG 09/08/19 Prednisone (PREDNISONE) 1 Mg Tb, 4 TAB PO DAILY, #360 TAB 3 Refills 09/08/19 Adalimumab (Humira) Unknown Strength Kit, SC QWEEKLY, KIT 09/08/19 Disopyramide Phosphate (Disopyramide Phosphate) 100 Mg Cap, 100 MG PO BID, CAP 09/08/19 [Premarin] No Conflict Check, 0.625 MG PO BID 04/14/12 Home Meds Home medications reviewed. Current Medications Current Medications Medications (Trade) Dose Ordered Sig/Quinn Route PRN Reason Start Time Stop Time Status Last Admin Atorvastatin Calcium (Lipitor) 20 mg HS PO 07/14/24 22:00 07/14/24 20:50 Levothyroxine Sodium (Synthroid Tablet) 88 mcg QAM@0600 PO 07/15/24 06:00 07/15/24 07:06 Pantoprazole Sodium (Protonix) 40 mg DAILY IV 07/15/24 10:00 07/15/24 11:21 Clopidogrel Bisulfate (Plavix) 75 mg DAILY PO 07/15/24 10:00 Methylprednisolone Sodium Succinate (Solu Medrol) 40 mg BID IV 07/15/24 22:00 Ceftriaxone Sodium 50 ml @ 100 mls/hr DAILY@09 IV 07/16/24 09:00 Future Hold Metronidazole (Flagyl Tablet) 500 mg Q8HR PO 07/15/24 14:00 Saccharomyces Boulardii (Florastor) 250 mg DAILY PO 07/16/24 10:00 Morphine Sulfate 1 mg Q6HP PRN IV SEVERE PAIN (7-10 PAIN SCALE) 07/15/24 10:15 Review of Systems Constitutional: Generalized weakness Ears, Nose, & Throat: No symptom reported Eyes: No symptom reported Neurological: Dizziness Pulmonary/Respiratory: Cough Cardiovascular: No symptom reported Gastrointestinal: N/V/D/poor appetite Genitourinary: No symptom reported Musculoskeletal: No symptom reported Skin: No symptom reported Psychiatric: No symptom reported Endocrine: No symptom reported Hemotologic/Lymphatic: No symptom reported Vital Signs Vital Signs Date Time Temp Pulse Resp B/P (MAP) Pulse Ox O2 Delivery O2 Flow Rate FiO2 07/15/24 16:30 98.1 98 20 111/72 (85) 94 98.1 07/15/24 08:03 Nasal Cannula* 3 32 Physical Exam General Appearance: Cooperative. Lethargic. Obese. Moderate acute respiratory distress Head Exam: Normal inspection Neck Exam: Normal inspection. Non-tender. Normal alignment Pulmonary/Respiratory: Chest non-tender. Diminished bilateral breath sounds. O2 via NC at 3 LPM. Tachypneic Cardiovascular/Chest: Regular rate and rhythm. S1, S2. Sinus tachycardia. No murmurs. No JVD. Peripheral Pulses: 2+ Radial (R). 2+ Radial (L). 2+ Pedal (R). 2+ Pedal (L) Abdominal Exam: Normal bowel sounds. Soft. Nontender. No hepatospenomegaly. No masses Ankle Exam: Negative ankle edema Lower extremities: Negative lower extremity edema. Joint deformities and contractures present Neuro/Mental Status: A&O x4. Coherent Thoughts/Psych: Normal thought pattern. Appropriate mood and affect. Good judgement and insight Appearance: Moderate acute respiratory distress Skin Exam: Hematoma to left thigh Labs/Diagnostic Data Labs Test 07/15/24 09:40 07/15/24 02:07 07/15/24 02:06 07/14/24 23:25 Range/Units White Blood Count 6.8 4.4-10.8 10^3/uL Red Blood Count 4.30 4.0-5.20 10^6/uL Hemoglobin 14.0 12.2-16.2 g/dL Hematocrit 41.8 36.0-46.0 % Mean Corpuscular Volume 97.2 80.0-100.0 fL Mean Corpuscular Hemoglobin 32.4 H 28.0-32.0 pg Mean Corpuscular Hemoglobin Concent 33.4 32.0-36.0 g/dL Red Cell Distribution Width 14.5 H 11.8-14.3 % Platelet Count 194 140-450 10^3/uL Mean Platelet Volume 8.0 6.9-10.8 fL Neutrophils (%) (Auto) 78.1 37.0-80.0 % Lymphocytes (%) (Auto) 12.8 10.0-50.0 % Monocytes (%) (Auto) 8.9 0.0-12.0 % Eosinophils (%) (Auto) 0.0 0.0-7.0 % Basophils (%) (Auto) 0.2 0.0-2.0 % Neutrophils # (Auto) 5.3 1.6-8.6 10 ^3/uL Lymphocytes # (Auto) 0.9 0.4-5.4 10 ^3/uL Monocytes # (Auto) 0.6 0-1.3 10 ^3/uL Eosinophils # (Auto) 0 0-0.8 10 ^3/uL Basophils # (Auto) 0 0-0.2 10 ^3/uL Nucleated Red Blood Cells 0.1 % Sodium Level 139 136-145 mmol/L Potassium Level 4.4 3.5-5.1 mmol/L Chloride Level 105 98-107 mmol/L Carbon Dioxide Level 24 20-31 mmol/L Anion Gap 10 5-15 Blood Urea Nitrogen 22 9-23 mg/dL Creatinine 0.91 0.550-1.02 mg/dL Glomerular Filtration Rate Calc 67 >90 mL/min BUN/Creatinine Ratio 24.2 H 10.0-20.0 Serum Glucose 102 74-106 mg/dL Calcium Level 8.8 8.7-10.4 mg/dL Total Bilirubin 0.5 0.2-1.0 mg/dL Aspartate Amino Transferase (AST) 93 H 13-40 U/L Alanine Aminotransferase (ALT) 55 H 7-40 U/L Alkaline Phosphatase 54 46-116 U/L Total Protein 5.8 5.7-8.2 g/dL Albumin 3.7 3.2-4.8 g/dL Influenza Type A Antigen Negative Negative Influenza Type B Antigen Negative Negative SARS-CoV-2 Antigen (Rapid) Positive NEGATIVE Troponin I High Sensitivity 221 *H </=34 ng/L Urine Color Light-yellow Yellow Urine Clarity Clear Clear Urine pH 5.0 5.0-9.0 Urine Specific [place] 1.007 1.001-1.035 Urine Protein Negative Negative Urine Ketones 2+ H Negative Urine Blood Negative Negative /uL Urine Nitrite Negative Negative Urine Bilirubin Negative Negative Urine Urobilinogen Normal Negative mg/dL Urine Leukocyte Esterase 3+ Negative /uL Urine RBC 4 0 - 4 /hpf Urine Microscopic WBC 19 H 0-5 /HPF Urine Squamous Epithelial Cells Few <5 /hpf Urine Bacteria Few H None Seen /hpf Urine Glucose Normal Normal mg/dL Test 07/14/24 17:00 07/14/24 16:45 Range/Units Thyroid Stimulating Hormone (TSH) 0.69 0.55-4.78 uIU/mL POC Glucose 77 70-106 mg/dl Assessment Sepsis with COVID-19 pneumonia NSTEMI, likely type 2 secondary to above Rule out structural heart disease Right internal carotid artery stenosis, moderate degree Thyroid disease Dyslipidemia History of CVA Rheumatoid arthritis Obesity Plan/Recommendation (Dr. Mcfadden) We will continue further cardiac evaluation with a transthoracic echocardiogram to evaluate cardiac function. Likely NSTEMI type 2 secondary to sepsis with COVID-19 pneumonia. Given moderate right internal carotid artery stenosis, continue single-antiplatelet therapy and lipid lowering agent. Obtain bilateral lower extremity venous US rule out DVT. Initiate DVT/VTE prophylaxis. Monitor ECG changes closely and notify. Thank you for allowing us to participate in this patient's care. Please call if you have any questions or concerns. This medical document was created using an electronic medical record system with voice recognition software and computerized dictation system. Although this document has been carefully reviewed, there might still be some phonetic and typographical errors. Occasional wrong-word or ``sound-alike substitutions may have occurred due to the inherent limitations of voice recognition software. These areas are purely typographical due to imperfections of the software programs and do not reflect any compromise in the patient's medical care. Please read the chart carefully and recognize, using context, where these substitutions have occurred. Plan discussed with: Patient, Other NYHA Physical activity limitations: NA Date of Service: Jul 15, 2024 Billing Provider: MIRNA BEE Cardiology Common Codes: [id number] INP/OBS CARE (High) MIRNA BEE Jul 15, 2024 18:45
[2024-07-15] MEDS: metroNIDAZOLE 500 MG TAB PO SCH (18:49)
[2024-07-15] MEDS: methylPREDNISolone SOD SUCC 40 MG/ML VL IV SCH (21:23)
--- NOTE | 2024-07-15 21:55 | DVH ---
Bilateral lower extremity venous duplex Clinical History: Edema Comparison: None Technique: Duplex Doppler evaluation of the deep venous systems of both lower extremities from the common femora l veins to the popliteal veins including color Doppler and spectral/pulsed waveform analysis was perf ormed. Findings: RIGHT SIDE: The common femoral vein demonstrates appropriate compressibility and waveform variability. Great saphenous vein not visualized. The femoral vein demonstrates appropriate compressibility and waveform variability. The deep femoral vein demonstrates appropriate compressibility and waveform variability. The popliteal vein demonstrates appropriate compressibility and waveform variability. There is normal compressibility at the tibioperoneal trunk. LEFT SIDE: The common femoral vein demonstrates appropriate compressibility and waveform variability. Great saphenous vein not visualized. The femoral vein demonstrates appropriate compressibility and waveform variability. The deep femoral vein demonstrates appropriate compressibility and waveform variability. The popliteal vein demonstrates appropriate compressibility and waveform variability. There is normal compressibility at the tibioperoneal trunk. Impression: No evidence of right or left femoropopliteal venous thrombosis. Great saphenous veins not visualized bilaterally.
[2024-07-15] MEDS ORDERED: IBU600T PO (21:56)
[2024-07-15] MEDS ORDERED: CHOL500021 OR (21:58)
[2024-07-15] MEDS ORDERED: metroNIDAZOLE 500 MG TAB PO SCH (22:00)
[2024-07-15] MEDS: ENOXAPARIN SOD 40 MG/0.4 ML SYRINGE SC ONE (22:53)
[2024-07-16] VITALS (8 sets, daily range): BP systolic 108–152; BP diastolic 57–78; PULSE 83–107; RESP 16–19; TEMP 97.3–98.2; O2SAT 90–94
--- NOTE | 2024-07-16 07:01 | DVH ---
EXAM: XR Chest, 1 View CLINICAL INDICATION: pneumonia TECHNIQUE: Frontal view of the chest. COMPARISON: XY CHEST PORTABLE on DOS: 07/14/24 FINDINGS: LUNGS AND PLEURAL SPACES: Unremarkable. No consolidation. No pneumothorax. HEART: Unremarkable. No cardiomegaly. MEDIASTINUM: Unremarkable. Normal mediastinal contour. BONES/JOINTS: Unremarkable. No acute fracture. OTHER FINDINGS: . None. IMPRESSION: No acute cardiopulmonary process.
[2024-07-16 07:18] LABS: Basophils # (auto) 0 10 ^3/uL (0-0.2); Basophils % (auto) 0.2 % (0.0-2.0); Eosinophils # (auto) 0 10 ^3/uL (0-0.8); Eosinophils % (auto) 0.1 % (0.0-7.0); Hematocrit 34.9 % (36.0-46.0); Hemoglobin 11.8 g/dL (12.2-16.2); Lymphocytes % (auto) 21.4 % (10.0-50.0); Mean Corpuscular Hemoglobin 32.6 pg (28.0-32.0); Mean Corpuscular Hgb Conc. 33.9 g/dL (32.0-36.0); Mean Corpuscular Volume 96.4 fL (80.0-100.0); Monocytes # (auto) 0.6 10 ^3/uL (0-1.3); Monocytes % (auto) 11.9 % (0.0-12.0); Neutrophils # (auto) 3.2 10 ^3/uL (1.6-8.6); Neutrophils % (auto) 66.4 % (37.0-80.0); Nucleated Red Blood Cells % 0.3 %; Platelet Count (auto) 167 10^3/uL (140-450); Red Blood Cells 3.62 10^6/uL (4.0-5.20); Red Cell Distribution Width 14.9 % (11.8-14.3); White Blood Cell 4.8 10^3/uL (4.4-10.8)
[2024-07-16 07:29] LABS: Chloride 107 mmol/L (98-107); Sodium 139 mmol/L (136-145)
[2024-07-16 07:30] LABS: Anion Gap 7 (5-15); Carbon Dioxide 25 mmol/L (20-31)
[2024-07-16 07:35] LABS: BUN/Creatinine Ratio 21.3 (10.0-20.0); Blood Urea Nitrogen 19 mg/dL (9-23); Glucose 77 mg/dL (74-106)
[2024-07-16 07:38] LABS: Calcium 8.5 mg/dL (8.7-10.4); Potassium 3.5 mmol/L (3.5-5.1)
[2024-07-16] MEDS ORDERED: cefTRIAXone 1GM/50ML D5W 50 ML IV SCH (09:00)
--- NOTE | 2024-07-16 09:27 | DVHSR ---
APPROVED REPORT EXAM: LIMITED Two-dimensional and M-mode echocardiogram with Doppler and color Doppler. Blood Pressure: 125/69 mmHg INDICATION CAD RISK FACTORS Height: 5' 3", Weight: 180 DIMENSIONS LVDd3.5 (3.8-5.7cm)LA (2D)3.2 (1.9-4.0cm)Aortic Root3.3 (2.0-3.7cm) LVDs2.5 (2.5-4.0cm)LA (MM) (1.9-4.0cm)Aortic Cusp Exc1.7 (1.5-2.0cm) EF (%) 55.0 (55-70%)Rt. Atrium (1.9-4.0cm)Asc. Aorta cm IVSd0.9 (0.7-1.1cm)RV (D) (1.8-2.4cm) PWd1.0 (0.7-1.1cm) Mitral Valve MitralMitral Stenosis E wave0.90m/sMV Mean GR.mmHg A wave1.20m/sMV Peak GR.mmHg E/A ratio0.82D MVAcm2 Aortic Valve Aortic ValveAortic Stenosis V10.79m/Alison Mean GR.4mmHg V21.34m/Alison Peak GR.7mmHg LVOT Diameter2.3 (1.8-2.4cm)Doppler AVA2.45cm2 Pulmonic Valve V20.90m/s Other Information Quality : Technically LimitedRhythm : Technically limited study due to body habitus. Conclusion Technically difficult study. Difficult acoustic windows. Normal chamber sizes. Mild dilation of the sinuses of Valsalva. Mild calcification of the sinuses. Valves appear to be structurally normal. Left ventricular function is preserved at 60% with normal RV function. Dopplers unremarkable. No pericardial effusion masses or vegetations.
--- NOTE | 2024-07-16 10:28 | DVHPN2 ---
Progress Note Date Seen: Jul 16, 2024 Medical Necessity Reason Pt with a Central, PICC or Fol: No Subjective Patient reports: No new complaints Review of Systems: HEENT:Normal, CVS:Normal, RESPIRATORY:Normal, GI:Normal, :Normal, MSK:Normal, NEURO:Normal Objective vital signs Vital Sign Date Time Temp Pulse Resp B/P (MAP) Pulse Ox O2 Delivery O2 Flow Rate FiO2 07/16/24 09:00 97.6 101 16 138/67 (90) 93 97.6 07/15/24 20:00 Nasal Cannula* 3 32 Total Intake and Output 07/15/24 07/15/24 07/16/24 15:00 23:00 07:00 Intake Total 660 ml 600 ml Balance 660 ml 600 ml medications Current Medications Medications Dose Ordered Sig/Quinn Route Start Time Stop Time Status Last Admin Dose Admin Alprazolam 0.25 mg Q8HP PRN PO 07/14/24 15:45 Atorvastatin Calcium 20 mg HS PO 07/14/24 22:00 07/15/24 21:22 20 MG Levothyroxine Sodium 88 mcg QAM@0600 PO 07/15/24 06:00 07/16/24 06:07 88 MCG Pantoprazole Sodium 40 mg DAILY IV 07/15/24 10:00 07/15/24 11:21 40 MG Clopidogrel Bisulfate 75 mg DAILY PO 07/15/24 10:00 Sodium Chloride 1,000 ml @ 60 mls/hr [id number] IV 07/14/24 15:45 07/14/24 16:56 60 MLS/HR Acetaminophen/ Hydrocodone Bitart 1 tab Q4HP PRN PO 07/14/24 15:45 Ondansetron HCl 4 mg Q4HP PRN IV 07/14/24 15:45 Acetaminophen 650 mg Q6HP PRN PO 07/14/24 15:45 Nitroglycerin 0.4 mg Q5MINP PRN SL 07/14/24 15:45 Morphine Sulfate 2 mg Q30M PRN IV 07/14/24 15:45 Methylprednisolone Sodium Succinate 40 mg BID IV 07/15/24 22:00 Ceftriaxone Sodium 50 ml @ 100 mls/hr DAILY@09 IV 07/16/24 09:00 Hold Metronidazole 500 mg Q8HR PO 07/15/24 14:00 07/16/24 06:07 500 MG Saccharomyces Boulardii 250 mg DAILY PO 07/16/24 10:00 Morphine Sulfate 1 mg Q6HP PRN IV 07/15/24 10:15 Enoxaparin Sodium 40 mg DAILY SC 07/16/24 10:00 Metronidazole 500 mg Q12HR PO 07/15/24 22:00 UNV Examination: GENERAL:Normal, HEENT:Normal, NECK:Normal, LUNGS:Normal, LUNGS:Abnormal (on oxygen), CVS:Normal, ABDOMEN:Normal, MSK:Normal, SKIN:Normal, NEURO:Normal, :Normal laboratory and microbiology Laboratory Tests 07/16/24 07:00 Test 07/16/24 07:00 Range/Units Serum Glucose 77 74-106 mg/dL Problem List/Assessment/Plan Problem List/Assessment/Plan #1 acute resp failure: cont oxygen #2 covid 19 pneumonia with sepsis: iv antibiotics, iv steroids #3 diarrhea: check c diff #4 hypothyroidism #5 left knee bruise/trauma #6 nstemi: cardio eval #7 uti: culture #8 RA #9 Ulcerative colitis ?flare up: gi eval #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
[2024-07-16] MEDS: FLORASTOR (S. BOULARDII) 250 MG CAP PO SCH (10:55)
[2024-07-16] MEDS: ENOXAPARIN SOD 40 MG/0.4 ML SYRINGE SC SCH (10:56)
--- NOTE | 2024-07-16 11:31 | DVHPN2 ---
Consult Progress Note Date Seen: Jul 16, 2024 Subjective Review of Systems: CVS:Normal, RESPIRATORY:Normal, NEURO:Normal Objective vital signs Vital Sign Date Time Temp Pulse Resp B/P (MAP) Pulse Ox O2 Delivery O2 Flow Rate FiO2 07/16/24 09:00 97.6 101 16 138/67 (90) 93 97.6 07/15/24 20:00 Nasal Cannula* 3 32 Total Intake and Output 07/15/24 07/15/24 07/16/24 15:00 23:00 07:00 Intake Total 660 ml 600 ml Balance 660 ml 600 ml medications Current Medications Medications Dose Ordered Sig/Quinn Route Start Time Stop Time Status Last Admin Dose Admin Alprazolam 0.25 mg Q8HP PRN PO 07/14/24 15:45 Atorvastatin Calcium 20 mg HS PO 07/14/24 22:00 07/15/24 21:22 20 MG Levothyroxine Sodium 88 mcg QAM@0600 PO 07/15/24 06:00 07/16/24 06:07 88 MCG Pantoprazole Sodium 40 mg DAILY IV 07/15/24 10:00 07/15/24 11:21 40 MG Clopidogrel Bisulfate 75 mg DAILY PO 07/15/24 10:00 07/16/24 10:53 75 MG Sodium Chloride 1,000 ml @ 60 mls/hr [id number] IV 07/14/24 15:45 07/14/24 16:56 60 MLS/HR Acetaminophen/ Hydrocodone Bitart 1 tab Q4HP PRN PO 07/14/24 15:45 Ondansetron HCl 4 mg Q4HP PRN IV 07/14/24 15:45 Acetaminophen 650 mg Q6HP PRN PO 07/14/24 15:45 Nitroglycerin 0.4 mg Q5MINP PRN SL 07/14/24 15:45 Morphine Sulfate 2 mg Q30M PRN IV 07/14/24 15:45 Methylprednisolone Sodium Succinate 40 mg BID IV 07/15/24 22:00 Ceftriaxone Sodium 50 ml @ 100 mls/hr DAILY@09 IV 07/16/24 09:00 Hold Metronidazole 500 mg Q8HR PO 07/15/24 14:00 07/16/24 06:07 500 MG Saccharomyces Boulardii 250 mg DAILY PO 07/16/24 10:00 07/16/24 10:55 250 MG Morphine Sulfate 1 mg Q6HP PRN IV 07/15/24 10:15 Enoxaparin Sodium 40 mg DAILY SC 07/16/24 10:00 07/16/24 10:56 40 MG Metronidazole 500 mg Q12HR PO 07/15/24 22:00 UNV Examination: LUNGS:Abnormal (Diminished, O2 via NC), CVS:Normal (Intermittent sinus tachycardia), NEURO:Normal laboratory and microbiology Laboratory Tests 07/16/24 07:00 Test 07/16/24 07:00 Range/Units Serum Glucose 77 74-106 mg/dL Problem List/Assessment/Plan Problem List/Assessment/Plan Sepsis with COVID-19 pneumonia NSTEMI, likely type 2 secondary to above Right internal carotid artery stenosis, moderate degree Thyroid disease Dyslipidemia History of CVA Rheumatoid arthritis Obesity Plan/Recommendation (Dr. Mcfadden) Transthoracic echocardiogram revealed EF 60%, normal RV function, and no evidence of wall motion abnormalities. Likely NSTEMI type 2 secondary to sepsis with COVID-19 pneumonia. Given moderate right internal carotid artery stenosis, continue single-antiplatelet therapy and lipid lowering agent. Continue DVT/VTE prophylaxis. Septic work-up per primary care team. There is no further cardiac work-up indicated at this time. Kindly call if in need to re-consult. Thank you for allowing us to participate in this patient's care. This medical document was created using an electronic medical record system with voice recognition software and computerized dictation system. Although this document has been carefully reviewed, there might still be some phonetic and typographical errors. Occasional wrong-word or ``sound-alike substitutions may have occurred due to the inherent limitations of voice recognition software. These areas are purely typographical due to imperfections of the software programs and do not reflect any compromise in the patient's medical care. Please read the chart carefully and recognize, using context, where these substitutions have occurred. Plan discussed with: Patient, Other Date of Service: Jul 16, 2024 Billing Provider: MIRNA BEE Cardiology Common Codes: [id number] INP/OBS CARE(Mod) MIRNA BEE Jul 16, 2024 11:31
[2024-07-16] MEDS: POTASSIUM EFFERVESENT TAB 25 MEQ PO ONE (12:25)
[2024-07-16] MEDS: ONDANSETRON HCL 4 MG/2 ML VIAL IV PRN (12:52)
[2024-07-17] VITALS (8 sets, daily range): BP systolic 146–165; BP diastolic 67–90; PULSE 67–86; RESP 16–19; TEMP 97.6–98.1; O2SAT 94–98
[2024-07-17 07:44] LABS: Basophils # (auto) 0 10 ^3/uL (0-0.2); Basophils % (auto) 0.2 % (0.0-2.0); Eosinophils # (auto) 0 10 ^3/uL (0-0.8); Eosinophils % (auto) 0.1 % (0.0-7.0); Hematocrit 39.4 % (36.0-46.0); Lymphocytes # (auto) 0.3 10 ^3/uL (0.4-5.4); Lymphocytes % (auto) 8.1 % (10.0-50.0); Mean Corpuscular Hemoglobin 32.2 pg (28.0-32.0); Mean Corpuscular Hgb Conc. 32.9 g/dL (32.0-36.0); Mean Corpuscular Volume 97.8 fL (80.0-100.0); Monocytes # (auto) 0.4 10 ^3/uL (0-1.3); Monocytes % (auto) 10.5 % (0.0-12.0); Neutrophils # (auto) 3.1 10 ^3/uL (1.6-8.6); Neutrophils % (auto) 81.1 % (37.0-80.0); Nucleated Red Blood Cells % 0.2 %; Platelet Count (auto) 140 10^3/uL (140-450); Red Blood Cells 4.03 10^6/uL (4.0-5.20); Red Cell Distribution Width 14.2 % (11.8-14.3); White Blood Cell 3.8 10^3/uL (4.4-10.8)
[2024-07-17 07:45] LABS: Potassium 4.2 mmol/L (3.5-5.1); Sodium 138 mmol/L (136-145)
[2024-07-17 07:46] LABS: Anion Gap 9 (5-15); Carbon Dioxide 21 mmol/L (20-31)
[2024-07-17 07:48] LABS: Calcium 8.2 mg/dL (8.7-10.4); Chloride 108 mmol/L (98-107)
[2024-07-17 07:51] LABS: BUN/Creatinine Ratio 16.7 (10.0-20.0); Blood Urea Nitrogen 12 mg/dL (9-23); Glucose 104 mg/dL (74-106)
[2024-07-17 07:55] LABS: INR 0.97 (0.9-1.15); Partial Thromboplastin Time 22.1 SEC (24.5-34.5); Prothrombin Time 10.3 sec (9.3-11.8)
--- NOTE | 2024-07-17 12:18 | DVHPN2 ---
Reviewed: Care Plan, H&P, Labs, Medications, Previous Orders, Radiology Changes from previous H/P or p: No Changes Eyes: No Pain, No Vision change, No Conjunctivae inflammation, No Eyelid inflammation, No Other, No Redness ENT: No Ear pain, No Ear discharge, No Nose pain, No Nose discharge; Nose congestion; No Mouth pain, No Mouth swelling, No Throat pain, No Throat swelling, No Other Cardiovascular: No Chest Pain, No Palpitations, No Orthopnea, No Paroxysmal Noc. Dyspnea, No Edema, No Lt Headedness; Other (Syncope) Respiratory: No Cough, No Dry; Shortness of breath; No SOB with excertion, No Wheezing, No Hemoptysis, No Pleuritic Pain, No Sputum, No Other Gastrointestinal: Nausea, Vomiting; No Abdominal Pain; Diarrhea; No Constipation, No Melena, No Hematochezia, No Other Genitourinary: No Dysuria, No Frequency, No Incontinence, No Hematuria, No Retention, No Other Musculoskeletal: other (Bilateral knee pain); No neck pain, No shoulder pain, No arm pain, No back pain, No hand pain, No leg pain, No foot pain Skin: No Rash, No Lesions, No Jaundice, No Bruising, No Other Objective Vitals Vital Signs Date Time Temp Pulse Resp B/P (MAP) Pulse Ox O2 Delivery O2 Flow Rate FiO2 07/17/24 08:38 98.0 75 17 149/78 (101) 97 98.0 07/16/24 20:00 Nasal Cannula* 3 32 Intake/Output Intake and Output 07/17/24 07:00 Intake Total 2790 ml Balance 2790 ml Intake Oral 1100 ml IV Total 1690 ml # Voids 9 # Bowel Movements 1 Medications Current Medications Medications Dose Ordered Sig/Quinn Route Start Time Stop Time Status Last Admin Dose Admin Alprazolam 0.25 mg Q8HP PRN PO 07/14/24 15:45 Atorvastatin Calcium 20 mg HS PO 07/14/24 22:00 07/16/24 21:36 20 MG Levothyroxine Sodium 88 mcg QAM@0600 PO 07/15/24 06:00 07/17/24 06:21 88 MCG Pantoprazole Sodium 40 mg DAILY IV 07/15/24 10:00 07/17/24 09:07 40 MG Clopidogrel Bisulfate 75 mg DAILY PO 07/15/24 10:00 07/17/24 09:06 75 MG Sodium Chloride 1,000 ml @ 60 mls/hr [id number] IV 07/14/24 15:45 07/17/24 06:20 60 MLS/HR Acetaminophen/ Hydrocodone Bitart 1 tab Q4HP PRN PO 07/14/24 15:45 Ondansetron HCl 4 mg Q4HP PRN IV 07/14/24 15:45 07/16/24 12:52 4 MG Acetaminophen 650 mg Q6HP PRN PO 07/14/24 15:45 Nitroglycerin 0.4 mg Q5MINP PRN SL 07/14/24 15:45 Morphine Sulfate 2 mg Q30M PRN IV 07/14/24 15:45 Methylprednisolone Sodium Succinate 40 mg BID IV 07/15/24 22:00 07/17/24 09:07 40 MG Ceftriaxone Sodium 50 ml @ 100 mls/hr DAILY@09 IV 07/16/24 09:00 Hold Metronidazole 500 mg Q8HR PO 07/15/24 14:00 07/17/24 06:21 500 MG Saccharomyces Boulardii 250 mg DAILY PO 07/16/24 10:00 07/17/24 09:07 250 MG Morphine Sulfate 1 mg Q6HP PRN IV 07/15/24 10:15 Enoxaparin Sodium 40 mg DAILY SC 07/16/24 10:00 07/16/24 10:56 40 MG Metronidazole 500 mg Q12HR PO 07/15/24 22:00 UNV Laboratory Results Laboratory Tests 07/17/24 07:23 Chemistry Test 07/17/24 07:23 Calcium Level 8.2 mg/dL (8.7-10.4) L Coagulation Test 07/17/24 07:23 Prothrombin Time 10.3 sec (9.3-11.8) Prothrombin Time INR 0.97 (0.9-1.15) Activated Partial Thromboplast Time 22.1 SEC (24.5-34.5) L Urinalysis Test 07/14/24 23:25 Urine Color Light-yellow (Yellow) Urine Clarity Clear (Clear) Urine pH 5.0 (5.0-9.0) Urine Specific [place] 1.007 (1.001-1.035) Urine Protein Negative (Negative) Urine Ketones 2+ (Negative) H Urine Blood Negative /uL (Negative) Urine Nitrite Negative (Negative) Urine Bilirubin Negative (Negative) Urine Urobilinogen Normal mg/dL (Negative) Urine Leukocyte Esterase 3+ /uL (Negative) Urine RBC 4 /hpf (0 - 4) Urine Microscopic WBC 19 /HPF (0-5) H Urine Squamous Epithelial Cells Few /hpf (<5) Urine Bacteria Few /hpf (None Seen) H Urine Glucose Normal mg/dL (Normal) Microbiology Microbiology Date/Time Source Procedure Growth Status 07/15/24 14:00 Stool Clostridium difficile Toxin Assay - Final Complete 07/15/24 12:45 Voided Urine Urine Culture - Final Complete Labs and/or images reviewed: Labs reviewed by me, Image(s) reviewed by me Assessment/Plan Assessment/Plan Covering for Dr. Cantu #1 acute resp failure: cont oxygen #2 covid 19 pneumonia with sepsis: iv antibiotics, iv steroids #3 diarrhea: c diff negative #4 hypothyroidism #5 left knee bruise/trauma #6 nstemi: cardio eval #7 uti: culture mixed #8 RA #9 Ulcerative colitis ?flare up: gi eval #10 old cva: carotid doppler #11 obesity Time spent 50 minutes Patient is full code Advanced care planning time 20 mts Plan discussed with: Patient Date of Service: Jul 17, 2024 Billing Provider: JOSIANE ORTIZ MD Common Visit Codes: [id number] INP/OBS CARE(HIGH) Secondary Visit Codes: [id number] CARE PLAN 30 MINUTES JOSIANE ORTIZ MD Jul 17, 2024 12:18
--- NOTE | 2024-07-17 13:55 | DVHCONRES ---
Date Seen: Jul 17, 2024 Resident Creating Document: JOSE R FAIRBANKS RESIDENT Referring Physician Dr. Cantu Reason for Consultation Flare-up of ulcerative colitis History of Present Illness History of Present Illness The patient is a 74-year-old female with past medical history of OK, UTIs, ulcerative colitis and hypertension who presented to [facility] ED for evaluation of syncope and collapse. As reported by patient, she was experiencing flu-like symptoms including cough, nasal congestion, shortness of breath, nausea, vomiting, diarrhea, had syncopal episode with a fall when going to the bathroom. Patient was seen and evaluated in the ED, laboratory data shows WBC 6.6, platelets 182, sodium 135, potassium 3.7, BUN 14, creatinine 1.08, GFR 54, glucose 78, troponin 266, calcium 8.6. Head CT revealing severe small focal area of decreased attenuation deep white matter left parietal lobe, small old lacunar infarct left thalamus, no acute intracranial hemorrhage, knee x-ray, cervical spine x-ray reports showed no evidence of fracture or dislocation. Per patient, she was diagnosed with ulcerative colitis by Dr. Bates many years ago, patient also has IBS and rheumatoid arthritis. Per patient previously she was on Humira for her rheumatoid arthritis and ulcerative colitis, however, she has been off of it for the last 3 weeks which coincides with the onset of her explosive diarrhea. At present, patient notes up to 10 bowel movements per day which are yellow way and mucus containing without any blood. Denies any nausea or vomiting. Reports good appetite. Past Medical History Hypertension, myocardial infarction, recurrent UTIs Past Surgical History Cholecystectomy, hysterectomy, tonsillectomy, bilateral lower and upper extremities surgeries Family History: Patient reports no known family medical history. Allergies: Coded Allergies: Aspirin (Verified Allergy, Unknown, 09/08/19) Clarithromycin (Verified Allergy, Unknown, 09/08/19) Clindamycin (Verified Allergy, Unknown, 09/08/19) Doxycycline (Verified Allergy, Unknown, 09/08/19) Levofloxacin (Verified Allergy, Unknown, 09/08/19) Metoprolol (Verified Allergy, Unknown, 09/08/19) Nitrofurantoin (Verified Allergy, Unknown, 09/08/19) Penicillins (Verified Allergy, Unknown, 09/08/19) Sulfa Drugs (Verified Allergy, Unknown, 09/08/19) Sulfamethoxazole w/Trimethoprim (Verified Allergy, Unknown, 09/08/19) Tetracycline (Verified Allergy, Unknown, 09/08/19) Uncoded Allergies: NITRO (Allergy, Unknown, 07/14/24) PENICILLIN (Allergy, Unknown, 07/14/24) SULFA (Allergy, Unknown, 07/14/24) Home Meds Active Scripts Hydrocortone (Hydrocortisone 1%) 1 Applic Ap, 1 APPLIC TOP BID for 7 Days, #30 GRAMS 0 Refills Prov:EDITH KEVINRA Kaur [employer] 02/20/22 Reported Medications Leflunomide (Arava) 20 Mg Tab, 1 TAB PO DAILY, #30 TAB 07/15/24 Cholecalciferol (VITAMIN D) 5,000 Unit Tab, 2000 UNIT OR DAILY, TAB 07/15/24 Ibuprofen Micronized (MOTRIN TABLET) 600 Mg Tb, 200 MG PO QID, #40 TAB *Black box warning-NSAIDS can increase risk of OK & hypertension, GI irritation, ulceration, bleed, perferation. Do not use post cardiac surgery. Use short duration/lowest effective dose. 07/15/24 Esomeprazole Magnesium Trihydr (Nexium) 20 Mg Cap, 1 CAP PO DAILY PRN for HEARTBURN, #30 CAP 2 Refills 09/08/19 Atorvastatin Calcium (ATORVASTATIN CALCIUM) 20 Mg Tab, 1 TAB PO DAILY, #30 TAB 5 Refills 09/08/19 Levothyroxine Sodium (Levothyroxine Sodium) 88 Mcg Tab, 88 MCG PO QAM for 30 Days, MCG 09/08/19 Alprazolam (Alprazolam) 0.25 Mg Tab, 1 TAB PO BID PRN for ANXIETY, #60 TAB 09/08/19 Dicyclomine Hcl (Dicyclomine Hcl) 20 Mg Tab, 20 MG PO QID PRN for ABD CRAMPING for 30 Days, MG 09/08/19 Pantoprazole Sodium Sesquihydr (Protonix) 40 Mg Tab, 40 MG PO DAILY, #30 TAB 09/08/19 Estrogens, Conjugated (PREMARIN TABLET) 0.625 Mg Tb, 0.625 MG PO DAILY, MG 09/08/19 Prednisone (PREDNISONE) 1 Mg Tb, 4 TAB PO DAILY, #360 TAB 3 Refills 09/08/19 Adalimumab (Humira) Unknown Strength Kit, SC QWEEKLY, KIT 09/08/19 Disopyramide Phosphate (Disopyramide Phosphate) 100 Mg Cap, 100 MG PO BID, CAP 09/08/19 [Premarin] No Conflict Check, 0.625 MG PO BID 04/14/12 Review of Systems Eyes: No Pain, No Vision change, No Conjunctivae inflammation, No Eyelid inflammation, No Other, No Redness ENT: No Ear pain, No Ear discharge, No Nose pain, No Nose discharge, No Nose congestion, No Mouth pain, No Mouth swelling, No Throat pain, No Throat swelling, No Other Cardiovascular: No Chest Pain, No Palpitations, No Orthopnea, No Paroxysmal No Dyspnea, No Edema, No Lt Headedness, No Other Respiratory: No Cough, No Dry, No Shortness of breath, No SOB with exertion, No Wheezing, No Hemoptysis, No Pleuritic Pain, No Sputum, No Other Gastrointestinal: Nausea, Vomiting, No Abdominal Pain, Diarrhea, No Constipation, No Melena, No Hematochezia, No Other Genitourinary: No Dysuria, No Frequency, No Incontinence, No Hematuria, No Retention, No Other Musculoskeletal: No other, No neck pain, No shoulder pain, No arm pain, No back pain, No hand pain, No leg pain, No foot pain Skin: No Rash, No Lesions, No Jaundice, No Bruising, No Other Vital Signs Vital Signs Date Time Temp Pulse Resp B/P (MAP) Pulse Ox O2 Delivery O2 Flow Rate FiO2 07/17/24 12:57 98.1 86 16 156/71 (99) 98 98.1 07/16/24 20:00 Nasal Cannula* 3 32 Physical Exam General Appearance: Cooperative. Well developed. In moderate respiratory distress Head Exam: Normal inspection Neck Exam: Normal inspection. Non-tender. Normal alignment Pulmonary/Respiratory: Chest non-tender. Decreased bilateral breath sounds, on O2 via NC Cardiovascular/Chest: Regular rate and rhythm. No murmurs. No JVD. Abdominal Exam: Normal bowel sounds. Soft. normal abdomen, no visible veins, Nontender. No hepatospenomegaly. No masses Lower extremities: Negative lower extremity edema Neuro/Mental Status: A&O x4. Coherent. Thoughts/Psych: Normal thought pattern. Appropriate mood and affect. Good judgement and insight Labs/Diagnostic Data Labs Test 07/17/24 07:23 07/15/24 09:40 07/15/24 02:07 07/15/24 02:06 Range/Units White Blood Count 3.8 L 4.4-10.8 10^3/uL Red Blood Count 4.03 4.0-5.20 10^6/uL Hemoglobin 13.0 12.2-16.2 g/dL Hematocrit 39.4 # 36.0-46.0 % Mean Corpuscular Volume 97.8 80.0-100.0 fL Mean Corpuscular Hemoglobin 32.2 H 28.0-32.0 pg Mean Corpuscular Hemoglobin Concent 32.9 32.0-36.0 g/dL Red Cell Distribution Width 14.2 11.8-14.3 % Platelet Count 140 140-450 10^3/uL Mean Platelet Volume 8.2 6.9-10.8 fL Neutrophils (%) (Auto) 81.1 H 37.0-80.0 % Lymphocytes (%) (Auto) 8.1 L 10.0-50.0 % Monocytes (%) (Auto) 10.5 0.0-12.0 % Eosinophils (%) (Auto) 0.1 0.0-7.0 % Basophils (%) (Auto) 0.2 0.0-2.0 % Neutrophils # (Auto) 3.1 1.6-8.6 10 ^3/uL Lymphocytes # (Auto) 0.3 L 0.4-5.4 10 ^3/uL Monocytes # (Auto) 0.4 0-1.3 10 ^3/uL Eosinophils # (Auto) 0 0-0.8 10 ^3/uL Basophils # (Auto) 0 0-0.2 10 ^3/uL Nucleated Red Blood Cells 0.2 % Prothrombin Time 10.3 9.3-11.8 sec Prothrombin Time INR 0.97 0.9-1.15 Activated Partial Thromboplast Time 22.1 L 24.5-34.5 SEC Sodium Level 138 136-145 mmol/L Potassium Level 4.2 3.5-5.1 mmol/L Chloride Level 108 H 98-107 mmol/L Carbon Dioxide Level 21 20-31 mmol/L Anion Gap 9 5-15 Blood Urea Nitrogen 12 9-23 mg/dL Creatinine 0.72 0.550-1.02 mg/dL Glomerular Filtration Rate Calc 88 >90 mL/min BUN/Creatinine Ratio 16.7 10.0-20.0 Serum Glucose 104 74-106 mg/dL Calcium Level 8.2 L 8.7-10.4 mg/dL Total Bilirubin 0.5 0.2-1.0 mg/dL Aspartate Amino Transferase (AST) 93 H 13-40 U/L Alanine Aminotransferase (ALT) 55 H 7-40 U/L Alkaline Phosphatase 54 46-116 U/L Total Protein 5.8 5.7-8.2 g/dL Albumin 3.7 3.2-4.8 g/dL Influenza Type A Antigen Negative Negative Influenza Type B Antigen Negative Negative SARS-CoV-2 Antigen (Rapid) Positive NEGATIVE Troponin I High Sensitivity 221 *H </=34 ng/L Test 07/14/24 23:25 07/14/24 17:00 07/14/24 16:45 Range/Units Urine Color Light-yellow Yellow Urine Clarity Clear Clear Urine pH 5.0 5.0-9.0 Urine Specific [place] 1.007 1.001-1.035 Urine Protein Negative Negative Urine Ketones 2+ H Negative Urine Blood Negative Negative /uL Urine Nitrite Negative Negative Urine Bilirubin Negative Negative Urine Urobilinogen Normal Negative mg/dL Urine Leukocyte Esterase 3+ Negative /uL Urine RBC 4 0 - 4 /hpf Urine Microscopic WBC 19 H 0-5 /HPF Urine Squamous Epithelial Cells Few <5 /hpf Urine Bacteria Few H None Seen /hpf Urine Glucose Normal Normal mg/dL Thyroid Stimulating Hormone (TSH) 0.69 0.55-4.78 uIU/mL POC Glucose 77 70-106 mg/dl Microbiology Date/Time Source Procedure Growth Status 07/15/24 14:00 Stool Clostridium difficile Toxin Assay - Final Complete 07/15/24 12:45 Voided Urine Urine Culture - Final Complete Assessment Acute hypoxic respiratory failure COVID-19 pneumonia Sepsis due to above NSTEMI type 2 History of CVA Diarrhea Ulcerative colitis Plan: Started on mesalamine 800 mg p.o. t.i.d. Loperamide for diarrhea 2 mg as needed for diarrhea Patient already on methylprednisolone Follow up with GI in the outpatient clinic Thank you so much for the opportunity to consult on your patient. GI team will follow the patient. In case of any questions or concerns please feel free to reach out. Plan discussed with Dr. Bates Plan discussed with: Patient, Other (RN) JOSE R FAIRBANKS RESIDENT Jul 17, 2024 13:55
[2024-07-17] MEDS ORDERED: LOPERAMIDE HCL 2 MG CAP/TAB PO PRN (15:30)
[2024-07-17] MEDS: MESALAMINE 400mg Delayed Release Cap PO SCH (21:49)
[2024-07-18 01:00] VITALS: TEMP 97.8; O2SAT 98
[2024-07-18 05:00] VITALS: BP 159/93; PULSE 85; RESP 19; TEMP 98.5; O2SAT 97
[2024-07-18 08:00] VITALS: PULSE 81
--- NOTE | 2024-07-18 09:27 | DVHPN2 ---
Reviewed: Care Plan, H&P, Labs, Medications, Previous Orders, Radiology Changes from previous H/P or p: No Changes Eyes: No Pain, No Vision change, No Conjunctivae inflammation, No Eyelid inflammation, No Other, No Redness ENT: No Ear pain, No Ear discharge, No Nose pain, No Nose discharge; Nose congestion; No Mouth pain, No Mouth swelling, No Throat pain, No Throat swelling, No Other Cardiovascular: No Chest Pain, No Palpitations, No Orthopnea, No Paroxysmal Noc. Dyspnea, No Edema, No Lt Headedness; Other (Syncope) Respiratory: No Cough, No Dry; Shortness of breath; No SOB with excertion, No Wheezing, No Hemoptysis, No Pleuritic Pain, No Sputum, No Other Gastrointestinal: Nausea, Vomiting; No Abdominal Pain; Diarrhea; No Constipation, No Melena, No Hematochezia, No Other Genitourinary: No Dysuria, No Frequency, No Incontinence, No Hematuria, No Retention, No Other Musculoskeletal: other (Bilateral knee pain); No neck pain, No shoulder pain, No arm pain, No back pain, No hand pain, No leg pain, No foot pain Skin: No Rash, No Lesions, No Jaundice, No Bruising, No Other Objective Vitals Vital Signs Date Time Temp Pulse Resp B/P (MAP) Pulse Ox O2 Delivery O2 Flow Rate FiO2 07/18/24 05:00 98.5 85 19 159/93 (115) 97 98.5 07/17/24 19:30 Nasal Cannula* 3 32 Intake/Output Intake and Output 07/18/24 07:00 Intake Total 2600 ml Balance 2600 ml Intake Oral 2600 ml # Voids 10 # Bowel Movements 9 Medications Current Medications Medications Dose Ordered Sig/Quinn Route Start Time Stop Time Status Last Admin Dose Admin Alprazolam 0.25 mg Q8HP PRN PO 07/14/24 15:45 Atorvastatin Calcium 20 mg HS PO 07/14/24 22:00 07/17/24 21:49 20 MG Levothyroxine Sodium 88 mcg QAM@0600 PO 07/15/24 06:00 07/18/24 06:23 88 MCG Pantoprazole Sodium 40 mg DAILY IV 07/15/24 10:00 07/17/24 09:07 40 MG Clopidogrel Bisulfate 75 mg DAILY PO 07/15/24 10:00 07/17/24 09:06 75 MG Sodium Chloride 1,000 ml @ 60 mls/hr [id number] IV 07/14/24 15:45 07/18/24 06:24 60 MLS/HR Acetaminophen/ Hydrocodone Bitart 1 tab Q4HP PRN PO 07/14/24 15:45 Ondansetron HCl 4 mg Q4HP PRN IV 07/14/24 15:45 07/16/24 12:52 4 MG Acetaminophen 650 mg Q6HP PRN PO 07/14/24 15:45 Nitroglycerin 0.4 mg Q5MINP PRN SL 07/14/24 15:45 Morphine Sulfate 2 mg Q30M PRN IV 07/14/24 15:45 Methylprednisolone Sodium Succinate 40 mg BID IV 07/15/24 22:00 07/17/24 21:49 40 MG Ceftriaxone Sodium 50 ml @ 100 mls/hr DAILY@09 IV 07/16/24 09:00 Hold Metronidazole 500 mg Q8HR PO 07/15/24 14:00 07/18/24 06:23 500 MG Saccharomyces Boulardii 250 mg DAILY PO 07/16/24 10:00 07/17/24 09:07 250 MG Morphine Sulfate 1 mg Q6HP PRN IV 07/15/24 10:15 Enoxaparin Sodium 40 mg DAILY SC 07/16/24 10:00 07/16/24 10:56 40 MG Metronidazole 500 mg Q12HR PO 07/15/24 22:00 UNV Mesalamine 800 mg TID PO 07/17/24 22:00 07/18/24 06:22 800 MG Loperamide HCl 2 mg PRN PRN PO 07/17/24 15:30 Laboratory Results Laboratory Tests 07/17/24 07:23 Urinalysis Test 07/14/24 23:25 Urine Color Light-yellow (Yellow) Urine Clarity Clear (Clear) Urine pH 5.0 (5.0-9.0) Urine Specific [place] 1.007 (1.001-1.035) Urine Protein Negative (Negative) Urine Ketones 2+ (Negative) H Urine Blood Negative /uL (Negative) Urine Nitrite Negative (Negative) Urine Bilirubin Negative (Negative) Urine Urobilinogen Normal mg/dL (Negative) Urine Leukocyte Esterase 3+ /uL (Negative) Urine RBC 4 /hpf (0 - 4) Urine Microscopic WBC 19 /HPF (0-5) H Urine Squamous Epithelial Cells Few /hpf (<5) Urine Bacteria Few /hpf (None Seen) H Urine Glucose Normal mg/dL (Normal) Microbiology Microbiology Date/Time Source Procedure Growth Status 07/15/24 14:00 Stool Clostridium difficile Toxin Assay - Final Complete 07/15/24 12:45 Voided Urine Urine Culture - Final Complete Labs and/or images reviewed: Labs reviewed by me, Image(s) reviewed by me Assessment/Plan Assessment/Plan Covering for Dr. Cantu #1 acute resp failure: cont oxygen #2 covid 19 pneumonia with sepsis: iv antibiotics, iv steroids #3 diarrhea: c diff negative #4 hypothyroidism #5 left knee bruise/trauma #6 nstemi: cardio eval #7 uti: culture mixed #8 RA #9 Ulcerative colitis ?flare up: gi eval #10 old cva: carotid doppler #11 obesity Patient is Insisting to be discharged today Time spent 45 minutes Patient is full code Advanced care planning time 20 mts Plan discussed with: Patient Date of Service: Jul 18, 2024 Billing Provider: JOSIANE ORTIZ MD Common Visit Codes: [id number] INP/OBS CARE(HIGH) JOSIANE ORTIZ MD Jul 18, 2024 09:27
[2024-07-18] MEDS ORDERED: METH4PAK PO (09:33)
[2024-07-18] MEDS ORDERED: MESA1.2T PO (09:33)
[2024-07-18] MEDS ORDERED: LOPE2CAP16 PO (09:33)
--- NOTE | 2024-07-18 09:37 | DVHDS2 ---
Discharge Summary Date of Admission Jul 14, 2024 at 15:38 Date of Discharge: Jul 18, 2024 Admitting Diagnosis Shortness of breath and diarrhea Wounds: None Labs/Diagnostic Data: Laboratory Results Test 07/17/24 07:23 07/15/24 09:40 07/15/24 02:07 07/15/24 02:06 White Blood Count 3.8 10^3/uL (4.4-10.8) Red Blood Count 4.03 10^6/uL (4.0-5.20) Hemoglobin 13.0 g/dL (12.2-16.2) Hematocrit 39.4 % (36.0-46.0) Mean Corpuscular Volume 97.8 fL (80.0-100.0) Mean Corpuscular Hemoglobin 32.2 pg (28.0-32.0) Mean Corpuscular Hemoglobin Concent 32.9 g/dL (32.0-36.0) Red Cell Distribution Width 14.2 % (11.8-14.3) Platelet Count 140 10^3/uL (140-450) Mean Platelet Volume 8.2 fL (6.9-10.8) Neutrophils (%) (Auto) 81.1 % (37.0-80.0) Lymphocytes (%) (Auto) 8.1 % (10.0-50.0) Monocytes (%) (Auto) 10.5 % (0.0-12.0) Eosinophils (%) (Auto) 0.1 % (0.0-7.0) Basophils (%) (Auto) 0.2 % (0.0-2.0) Neutrophils # (Auto) 3.1 10 ^3/uL (1.6-8.6) Lymphocytes # (Auto) 0.3 10 ^3/uL (0.4-5.4) Monocytes # (Auto) 0.4 10 ^3/uL (0-1.3) Eosinophils # (Auto) 0 10 ^3/uL (0-0.8) Basophils # (Auto) 0 10 ^3/uL (0-0.2) Nucleated Red Blood Cells 0.2 % Prothrombin Time 10.3 sec (9.3-11.8) Prothrombin Time INR 0.97 (0.9-1.15) Activated Partial Thromboplast Time 22.1 SEC (24.5-34.5) Sodium Level 138 mmol/L (136-145) Potassium Level 4.2 mmol/L (3.5-5.1) Chloride Level 108 mmol/L (98-107) Carbon Dioxide Level 21 mmol/L (20-31) Anion Gap 9 (5-15) Blood Urea Nitrogen 12 mg/dL (9-23) Creatinine 0.72 mg/dL (0.550-1.02) Glomerular Filtration Rate Calc 88 mL/min (>90) BUN/Creatinine Ratio 16.7 (10.0-20.0) Serum Glucose 104 mg/dL (74-106) Calcium Level 8.2 mg/dL (8.7-10.4) Total Bilirubin 0.5 mg/dL (0.2-1.0) Aspartate Amino Transferase (AST) 93 U/L (13-40) Alanine Aminotransferase (ALT) 55 U/L (7-40) Alkaline Phosphatase 54 U/L (46-116) Total Protein 5.8 g/dL (5.7-8.2) Albumin 3.7 g/dL (3.2-4.8) Influenza Type A Antigen Negative (Negative) Influenza Type B Antigen Negative (Negative) SARS-CoV-2 Antigen (Rapid) Positive (NEGATIVE) Troponin I High Sensitivity 221 ng/L (</=34) Test 07/14/24 23:25 07/14/24 17:00 07/14/24 16:45 Urine Color Light-yellow (Yellow) Urine Clarity Clear (Clear) Urine pH 5.0 (5.0-9.0) Urine Specific [place] 1.007 (1.001-1.035) Urine Protein Negative (Negative) Urine Ketones 2+ (Negative) Urine Blood Negative /uL (Negative) Urine Nitrite Negative (Negative) Urine Bilirubin Negative (Negative) Urine Urobilinogen Normal mg/dL (Negative) Urine Leukocyte Esterase 3+ /uL (Negative) Urine RBC 4 /hpf (0 - 4) Urine Microscopic WBC 19 /HPF (0-5) Urine Squamous Epithelial Cells Few /hpf (<5) Urine Bacteria Few /hpf (None Seen) Urine Glucose Normal mg/dL (Normal) Thyroid Stimulating Hormone (TSH) 0.69 uIU/mL (0.55-4.78) POC Glucose 77 mg/dl (70-106) Other Laboratory Tests 07/17/24 07:23 Brief Hx & Hospital Course: 4-year-old female with a history of hypothyroidism rheumatoid arthritis ulcerative colitis old CVA came in complaining of shortness of breaths and also diarrhea found to have COVID pneumonia treated with the antibiotics and steroids C diff was negative ulcerative colitis seen by GI Dr. Bates placed on mesalamine and Imodium. The patient on room air afebrile stable vital signs. Patient is insisting to be discharged today acid with a her is sick, prescription for Medrol Dosepak mesalamine and Imodium transmitted to the pharmacy General Condition fair at the time of discharge Consults/Reason for consult GI Dr. Adrian Bates Operations or Procedures None Condition at Discharge: Fair Final Diagnosis/Problems List #1 acute resp failure: cont oxygen #2 covid 19 pneumonia with sepsis: iv antibiotics, iv steroids #3 diarrhea: c diff negative #4 hypothyroidism #5 left knee bruise/trauma #6 nstemi: cardio eval #7 uti: culture mixed #8 RA #9 Ulcerative colitis ?flare up: gi eval #10 old cva: carotid doppler #11 obesity Discharge Disposition: Home Discharge Instruct/Medications Diet: Cardiac 2g Na,low cholest Activity: Light activity Follow Up/Referral: Follow up with the primary Dr El all previous home medications Medications: Transmitted to the pharmacy 35 (Time taken for discharge summary 35 minutes) Discharge Statement: "Patient was advised to return to the ER or call 911 if any headaches, dizziness, shortness of breath, chest pain, abdominal pain, bleeding, fevers, or worsening of medical condition. Patient was counseled about treatment plan, medications, possible side effects, patientverbalized understanding. All questions were answered to the best of my ability. This discharge took greater then 30 minutes in planning, reviewing documentation, counseling the patient, and discussing with other team members." ASSESSMENT ASSESSMENT Hospital Course Improved Assessment #1 acute resp failure: cont oxygen #2 covid 19 pneumonia with sepsis: iv antibiotics, iv steroids #3 diarrhea: c diff negative #4 hypothyroidism #5 left knee bruise/trauma #6 nstemi: cardio eval #7 uti: culture mixed #8 RA #9 Ulcerative colitis ?flare up: gi eval #10 old cva: carotid doppler #11 obesity Date of Service: Jul 18, 2024 Billing Provider: JOSIANE ORTIZ MD Common Visit Codes: [id number] INP/OBS CARE(HIGH) JOSIANE ORTIZ MD Jul 18, 2024 09:37
[2024-07-18 12:34] VITALS: BP 123/70; PULSE 79; RESP 17; TEMP 97.9; O2SAT 95
[2024-07-18 13:00] VITALS: BP 154/96; PULSE 107; RESP 17; TEMP 97.3; O2SAT 95
== END 2024-07-18 13:30 | disposition home or self-care (01) | DRG 871 ==
LOC: ER 10:28 → EDBD 10:28 → OVERFLOW 15:38 → TELE-CENTR 07-15 06:37 → TELE-EAST 07-17 00:43
PROVIDERS: ADMIT Family Medicine; ATTEND Family Medicine
DX: A41.89 Other specified sepsis (principal); I21.A1 Myocardial infarction type 2; J12.82 Pneumonia due to coronavirus disease 2019; U07.1 COVID-19; J96.01 Acute respiratory failure with hypoxia; N39.0 Urinary tract infection, site not specified; K51.90 Ulcerative colitis, unspecified, without complications; E03.9 Hypothyroidism, unspecified; M06.9 Rheumatoid arthritis, unspecified; S80.02XA Contusion of left knee, initial encounter; I65.21 Occlusion and stenosis of right carotid artery; E78.5 Hyperlipidemia, unspecified; I50.9 Heart failure, unspecified; E66.9 Obesity, unspecified; M41.9 Scoliosis, unspecified; I11.0 Hypertensive heart disease with heart failure; M25.561 Pain in right knee; W01.0XXA Fall on same level from slipping, tripping and stumbling without subsequent striking against object, initial encounter; M10.9 Gout, unspecified; Z88.6 Allergy status to analgesic agent; Z88.1 Allergy status to other antibiotic agents; Z88.3 Allergy status to other anti-infective agents; Z88.0 Allergy status to penicillin; Z88.2 Allergy status to sulfonamides; Z88.8 Allergy status to other drugs, medicaments and biological substances; Z79.899 Other long term (current) drug therapy; Z90.49 Acquired absence of other specified parts of digestive tract; Z86.73 Personal history of transient ischemic attack (TIA), and cerebral infarction without residual deficits; Z68.32 Body mass index [BMI] 32.0-32.9, adult; I25.2 Old myocardial infarction; Z90.710 Acquired absence of both cervix and uterus; Y93.89 Activity, other specified; Y92.89 Other specified places as the place of occurrence of the external cause; Y99.8 Other external cause status
CPT/HCPCS: 36415; 70450; 71045; 72040; 73560; 80048; 80053; 81001; 82962; 84443; 84484; 85025; 85610; 85730; 87086; 87426; 87493; 87804; 93005; 93306; 93886; 93970; 97163; 99291; 99292; G0378; J2405; J2470

== ENCOUNTER 2024-07-20 20:42 | Inpatient (IN) | payer MEDICARE, OTHER ==
[~2024-07-20] VITALS: Ht 170.2 cm; Wt 67.5 kg
[~2024-07-20 20:42] MED LIST changes: +CHOL500021 OR; +IBU600T PO; +LOPE2CAP16 PO; +MESA1.2T PO; +METH4PAK PO
[2024-07-20 21:05] VITALS: PULSE 144; RESP 22; O2SAT 93
[2024-07-20] MEDS: methylPREDNISolone SOD SUCC 125 MG/2 ML VL IV ONE (21:40)
[2024-07-20] MEDS: SODIUM CHLORIDE 0.9% 1,850 ML IV ONE (21:42)
[2024-07-20] MEDS: VANCOMYCIN 1GM/250ML KIT 250 ML IV ONE (21:42)
[2024-07-20 21:54] LABS: Base Excess -2.3 mmol/L (-2.0-3.0)
[2024-07-20 21:57] LABS: Basophils # (auto) 0 10 ^3/uL (0-0.2); Basophils % (auto) 0.2 % (0.0-2.0); Eosinophils # (auto) 0 10 ^3/uL (0-0.8); Hematocrit 41.6 % (36.0-46.0); Hemoglobin 13.7 g/dL (12.2-16.2); Lymphocytes # (auto) 0.8 10 ^3/uL (0.4-5.4); Lymphocytes % (auto) 9.9 % (10.0-50.0); Mean Corpuscular Hgb Conc. 32.9 g/dL (32.0-36.0); Mean Corpuscular Volume 97.2 fL (80.0-100.0); Monocytes # (auto) 0.6 10 ^3/uL (0-1.3); Monocytes % (auto) 6.9 % (0.0-12.0); Neutrophils # (auto) 6.9 10 ^3/uL (1.6-8.6); Nucleated Red Blood Cells % 0.2 %; Platelet Count (auto) 120 10^3/uL (140-450); Red Blood Cells 4.28 10^6/uL (4.0-5.20); Red Cell Distribution Width 14.2 % (11.8-14.3); White Blood Cell 8.3 10^3/uL (4.4-10.8)
--- NOTE | 2024-07-20 22:00 | ED.PDOC ---
History of Present Illness HPI Comments 74-year-old female who comes in with chief complaint of generalized weakness and shortness for breath. The patient was admitted with pneumonitis and diagnosed with COVID and influenza. The patient was then discharged home but according to the family, the patient was only alert x1 today so 911 was called and the paramedics transported the patient to our facility. The patient had a significant amount of rhonchi. The oxygen saturation was 90% on room air but went up to 97% after the patient was given two breathing treatments. EN route, the patient's Accu-Chek was also 56. The patient was given glucagon and it went up to 86. The patient had one episode of vomiting prior to arrival as well. We attempted to get more history from the patient but the patient's seems to be somewhat altered. Chief Complaint: Shortness of Breath Time Seen by MD: 20:46 Primary Care Provider: NAA Reviewed Notes: Nurses Notes, Tie Up Worker Notes, Medications, Allergies (Allergies listed above) Allergies: Coded Allergies: Aspirin (Verified Allergy, Unknown, 09/08/19) Clarithromycin (Verified Allergy, Unknown, 09/08/19) Clindamycin (Verified Allergy, Unknown, 09/08/19) Doxycycline (Verified Allergy, Unknown, 09/08/19) Levofloxacin (Verified Allergy, Unknown, 09/08/19) Metoprolol (Verified Allergy, Unknown, 09/08/19) Nitrofurantoin (Verified Allergy, Unknown, 09/08/19) Penicillins (Verified Allergy, Unknown, 09/08/19) Sulfa Drugs (Verified Allergy, Unknown, 09/08/19) Sulfamethoxazole w/Trimethoprim (Verified Allergy, Unknown, 09/08/19) Tetracycline (Verified Allergy, Unknown, 09/08/19) Uncoded Allergies: NITRO (Allergy, Unknown, 07/14/24) PENICILLIN (Allergy, Unknown, 07/14/24) SULFA (Allergy, Unknown, 07/14/24) Home Meds Active Scripts Loperamide Hcl (Imodium) 2 Mg Cp, 2 MG PO Q4HR PRN, #30 CAP Prov:JOSIANE ORTIZ MD 07/18/24 Mesalamine (Lialda) 1.2 Gm Tab, 1.2 GM PO BID, #30 TAB Prov:JOSIANE ORTIZ MD 07/18/24 Methylprednisolone (Medrol Dosepak) 4 Mg Jp, 4 MG PO UD, #21 TAB UAD Prov:JOSIANE ORTIZ MD 07/18/24 Hydrocortone (Hydrocortisone 1%) 1 Applic Ap, 1 APPLIC TOP BID for 7 Days, #30 GRAMS 0 Refills Prov:SARA KEVIN [employer] 02/20/22 Reported Medications Leflunomide (Arava) 20 Mg Tab, 1 TAB PO DAILY, #30 TAB 07/15/24 Cholecalciferol (VITAMIN D) 5,000 Unit Tab, 2000 UNIT OR DAILY, TAB 07/15/24 Ibuprofen Micronized (MOTRIN TABLET) 600 Mg Tb, 200 MG PO QID, #40 TAB *Black box warning-NSAIDS can increase risk of MD & hypertension, GI irritation, ulceration, bleed, perferation. Do not use post cardiac surgery. Use short duration/lowest effective dose. 07/15/24 Esomeprazole Magnesium Trihydr (Nexium) 20 Mg Cap, 1 CAP PO DAILY PRN for HEARTBURN, #30 CAP 2 Refills 09/08/19 Atorvastatin Calcium (ATORVASTATIN CALCIUM) 20 Mg Tab, 1 TAB PO DAILY, #30 TAB 5 Refills 09/08/19 Levothyroxine Sodium (Levothyroxine Sodium) 88 Mcg Tab, 88 MCG PO QAM for 30 Days, MCG 09/08/19 Alprazolam (Alprazolam) 0.25 Mg Tab, 1 TAB PO BID PRN for ANXIETY, #60 TAB 09/08/19 Dicyclomine Hcl (Dicyclomine Hcl) 20 Mg Tab, 20 MG PO QID PRN for ABD CRAMPING for 30 Days, MG 09/08/19 Pantoprazole Sodium Sesquihydr (Protonix) 40 Mg Tab, 40 MG PO DAILY, #30 TAB 09/08/19 Estrogens, Conjugated (PREMARIN TABLET) 0.625 Mg Tb, 0.625 MG PO DAILY, MG 09/08/19 Prednisone (PREDNISONE) 1 Mg Tb, 4 TAB PO DAILY, #360 TAB 3 Refills 09/08/19 Adalimumab (Humira) Unknown Strength Kit, SC QWEEKLY, KIT 09/08/19 Disopyramide Phosphate (Disopyramide Phosphate) 100 Mg Cap, 100 MG PO BID, CAP 09/08/19 [Premarin] No Conflict Check, 0.625 MG PO BID 04/14/12 Information Source: Emergency Med Personnel Mode of Arrival: EMS Severity: Moderate Timing: Hours Duration: Since onset Prehospital treatment: Accucheck (56), Beta-Agonist Tx, Staple Laster, IVF, Oxygen, Treatment (Glucagon took the blood sugar 286) Associated signs and symptoms Associated weakness and shortness a breath Past Medical History PAST MEDICAL HISTORY: HTN, MD, UTI'S Surgical History: Cholecystectomy TOYS AND GAMES HAND FINISHER History: No Pertinent TOYS AND GAMES HAND FINISHER History Family History Family History: Unknown Social History Smoker: Non-Smoker Alcohol: Denies ETOH Use Drugs: Denies Drug Use Lives In: Home Constitutional: reports: weakness; denies: chills, diaphoresis, fatigue, fever, malaise, sweats, others EENTM: denies: blurred vision, double vision, ear bleeding, ear discharge, ear drainage, ear pain, ear ringing, eye pain, eye redness, hearing loss, mouth pain, mouth swelling, nasal discharge, nose bleeding, nose congestion, nose pain, photophobia, tearing, throat pain, throat swelling, voice changes, others Respiratory: reports: shortness of breath; denies: cough, hemoptysis, ort hopnea, SOB at rest, SOB with excertion, stridor, wheezing, others Cardiovascular: denies: chest pain, dizzy spells, diaphoresis, Dyspnea on exertion, edema, irregular heart beat, left arm pain, lightheadedness, palpitations, PND, syncope, others Gastrointestinal: denies: abdomen distended, abdominal pain, blood streaked bowels, constipated, diarrhea, dysphagia, difficulty swallowing, hematemesis, melena, nausea, poor appetite, poor fluid intake, rectal bleeding, rectal pain, vomiting, others Genitourinary: denies: abnormal vagina bleeding, burning, dyspareunia, dysuria, flank pain, frequency, hematuria, incontinence, pain, , vagina discharge, urgency, others Neurological: reports: others (Altered mental status); denies: dizziness, fainting, headache, left sided numbness, left sided weakness, numbness, paresthesia, pre-existing deficit, right sided numbness, right sided weakness, seizure, speech problems, tingling, tremors, weakness Musculoskeletal: denies: back pain, gout, joint pain, joint swelling, muscle pain, muscle stiffness, neck pain, others Integumetry: denies: bruises, change in color, change in hair/nails, dryness, laceration, lesions, lumps, rash, wounds, others Allergic/Immunocompromised: denies: Difficulty Healing, Frequent Infections, Hives, Itching, others Hematologic/Lymphatic: denies: anemia, blood clots, easy bleeding, easy bruising, swollen glands, others Endocrine: denies: excessive hunger, excessive sweating, excessive thirst, excessive urination, flushing, intolerance to cold, intolerance to heat, unexplained weight gain, unexplained weight loss, others Psychiatric: denies: anxiety, bipolar disorder, depression, hopeless, panic disorder, schizophrenia, sleepless, suicidal, others Physical Exam General Appearance: Moderate Distress HEENT: Pale Conjuntivae (L), Pale Conjuntivae (R), Pharynx Normal, TMs Normal Neck: Full Range of Motion, Non-Tender, Normal, Normal Inspection Respiratory: Chest Non-Tender, Lungs Clear, No Accessory Muscle Use, No Respiratory Distress, Normal Breath Sounds Cardiovascular: No Edema, No JVD, No Murmur, No Gallop, Tachycardia Breast Exam: Deferred Gastrointestinal: No Organomegaly, Non Tender, No Pulsatile Mass, Normal Bowel Sounds, Soft Genitalia: Deferred Pelvic: Deferred Rectal: Deferred Extremities: No calf tenderness, Normal capillary refill, Normal inspection, Normal range of motion, Non-tender, No pedal edema Musculoskeletal : Apperance: Normal Neurologic: transportation planning engineer II-XII nml as Tested, Motor Weakness, No Sensory Deficits, Ot her (Altered mental status and alert x1) Cerebellar Function: Unable to Test Reflexes: Normal Skin: Dry, Pallor, Warm Lymphatic: No Adenopathy Was a procedure done? Was a procedure done?: No EKG EKG : Pulse Rate (adult): 147 Cardiac Rhythm: ST Block: None ST: Nonsp Differential Dx Considerations may include: Generalized weakness, shortness for breath, pneumonia, sepsis X-Ray, Labs, Meds, VS Vital Signs Date Time Temp Pulse Resp B/P (MAP) Pulse Ox O2 Delivery O2 Flow Rate FiO2 07/20/24 20:50 97.3 143 26 134/84 (101) 96 97.3 07/20/24 20:45 147 Current Medications Medications (Trade) Dose Ordered Sig/Quinn Route Start Time Stop Time Status Last Admin Methylprednisolone Sodium Succinate (Solu Medrol) 125 mg ONCE ONCE IV 07/20/24 21:00 07/20/24 21:01 DC 07/20/24 21:40 IV Hep-Lock was established The patient was being given normal saline per sepsis protocol The patient was given Solu-Medrol 125 mg IV push At this time blood cultures x2 were drawn. The lactic acid level is being drawn All the labs are pending The patient is signed out to Dr. Duarte We are going to place the patient for admission to the hospitalist The patient was placed on a BiPAP after the ABG was done. Images Reviewed?: Images reviewed and evaluated by me Time of 1ST Reevaluation: 21:58 Reevaluation 1ST: Unchanged Patient Education/Counseling: Other (The patient was somewhat altered) Family Education/Counseling: No Family Present Departure 1 Departure Time of Disposition: 21:59 Impression: Primary Impression: Metabolic encephalopathy Additional Impressions: Acute respiratory failure Qualified Codes: J96.01 - Acute respiratory failure with hypoxia Generalized weakness Disposition: ADMITTED INPATIENT Admit to: [facility] Condition: Fair Critical Care Note Critical Care Time?: Yes (55 min-critical care time only) Stability Stability form required: Yes Unstable for transfer: ICU, CCU, PCU, DIPAK (Intensive VS monitoring), ED Physician Assesment (Clinical assesment) Heart Score Heart Score: Heart Score Response (Comments) Value History N/A 0 EKG N/A 0 Age N/A 0 Risk Factors N/A 0 Troponin N/A 0 Total 0 DAVID SEE MD Jul 20, 2024 22:00
[2024-07-20 22:06] LABS: Anion Gap 16 (5-15); Carbon Dioxide 24 mmol/L (20-31)
[2024-07-20 22:07] LABS: Calcium 8.3 mg/dL (8.7-10.4); Chloride 91 mmol/L (98-107); Potassium 2.7 mmol/L (3.5-5.1); Sodium 131 mmol/L (136-145)
[2024-07-20 22:10] LABS: Urine Bacteria None Seen /hpf (None Seen)
[2024-07-20 22:11] LABS: Glucose 82 mg/dL (74-106)
[2024-07-20 22:12] LABS: BUN/Creatinine Ratio 9.9 (10.0-20.0)
[2024-07-20 22:16] LABS: Blood Urea Nitrogen 8 mg/dL (9-23)
[2024-07-20 22:16] LABS: Urine Blood TRACE /uL (Negative); Urine Clarity Clear (Clear); Urine Color Light-Yellow (Yellow); Urine Protein, UAD Negative (Negative); Urine Specific Gravity 1.013 (1.001-1.035); Urine Squamous Epithelial Cell None Seen /hpf (<5); Urine Urobilinogen Normal (Negative); Urine WBC < 1 /HPF (0-5); Urine pH 5.5 (5.0-9.0)
[2024-07-20 22:19] LABS: Lactic Acid w/Reflex 3.1 mmol/L (0.4-2.0)
[2024-07-20 22:29] LABS: Rapid Influenza A Negative (Negative); Rapid Influenza B Negative (Negative)
[2024-07-20 22:31] LABS: COVID19 ANTIGEN SOFIA FIA POSITIVE (NEGATIVE)
[2024-07-20] MEDS ORDERED: POTASSIUM CHL 20MEQ/100ML 100 ML IV SCH (23:30)
[2024-07-20 23:32] VITALS: BP 114/64; PULSE 114; RESP 20; O2SAT 94
--- NOTE | 2024-07-20 23:56 | DVHHPRES ---
History of Present Illness Resident Creating Document: TOÑODEEDEETOÑO RUIZMelina RESDIENT History of Present Illness This is a 74-year-old female with past medical history of CVA, ulcerative colitis, hypertension, PA, hypothyroidism, rheumatoid arthritis, irritable bowel syndrome, and dyslipidemia brought to the hospital due to altered mental status and shortness of breaths. Patient was admitted on 07/14/2024 at [facility] on the line of COVID-19 and ulcerative colitis flare-up and was discharged on 07/18/2024. Since discharge patient's status progressively worsened and the patient became more altered which prompted this visit. Per patient's has been she also had diarrhea, fever, and generalized weakness. During previous admission the patient was evaluated by GI, and recommended Medrol Dosepak, mesalamine and Imodium for UC flare-up, but the patient could not take properly. PMHx: CVA, ulcerative colitis, hypertension, PA, hypothyroidism, rheumatoid arthritis and dyslipidemia Family history: Noncontributing Social history: Patient lives with the at home Home medication: Synthroid, Humira (adalimumab), atorvastatin, Protonix, leflunomide, prednisone, cholecalciferol, ibuprofen, mesalamine, and methylprednisolone Allergic history: Aspirin, clarithromycin, clindamycin, doxycycline, levofloxacin, nitro, nitrofurantoin, penicillin, sulfa drugs, sulfamethoxazole/trimethoprim, tetracycline Review of Systems Review of Systems Due to altered mental status of the patient, review of systems could not obtain. Allergies: Coded Allergies: Aspirin (Verified Allergy, Unknown, 09/08/19) Clarithromycin (Verified Allergy, Unknown, 09/08/19) Clindamycin (Verified Allergy, Unknown, 09/08/19) Doxycycline (Verified Allergy, Unknown, 09/08/19) Levofloxacin (Verified Allergy, Unknown, 09/08/19) Metoprolol (Verified Allergy, Unknown, 09/08/19) Nitrofurantoin (Verified Allergy, Unknown, 09/08/19) Penicillins (Verified Allergy, Unknown, 09/08/19) Sulfa Drugs (Verified Allergy, Unknown, 09/08/19) Sulfamethoxazole w/Trimethoprim (Verified Allergy, Unknown, 09/08/19) Tetracycline (Verified Allergy, Unknown, 09/08/19) Uncoded Allergies: NITRO (Allergy, Unknown, 07/14/24) PENICILLIN (Allergy, Unknown, 07/14/24) SULFA (Allergy, Unknown, 07/14/24) Medications Current Medications Medications Dose Ordered Sig/Quinn Route Start Time Stop Time Status Last Admin Dose Admin Potassium Chloride 100 ml @ 50 mls/hr Q2H IV 07/20/24 23:30 07/21/24 07:29 Exam Vital Signs Vital Signs Date Time Temp Pulse Resp B/P (MAP) Pulse Ox O2 Delivery O2 Flow Rate FiO2 07/20/24 23:36 116 07/20/24 23:30 99.3 22 114/64 (81) 93 99.3 07/20/24 22:43 Facial BiPAP Mask 50 Exam General Appearance: Alert, oriented to place and person, disoriented to time, could not provide proper history HEENT: Atraumatic, PERRLA, EOMI, Mucous membrane moist/pink Respiratory: Bilateral crackles Cardiovascular: Regular rate, Normal S1, Normal S2, No murmurs, no chest wall tenderness Abdominal: Normal bowel sounds, Soft, No tenderness, No hepatospenomegaly, No masses Extremities: Bilateral pedal edema grade 1 Skin: Petechial and purpuric rashes on the left lower limb Neuro: Normal gait, Normal speech, Strength at 5/5 X4 ext, Normal tone, Sensation intact, Cranial nerves 3-12 NL, Reflexes 2+ Psych/Mental Status: Mental status NL, Mood NL Labs/Xrays Labs Test 07/20/24 23:14 07/20/24 21:56 07/20/24 21:37 07/20/24 21:33 Range/Units Influenza Type A Antigen Negative Negative Influenza Type B Antigen Negative Negative SARS-CoV-2 Antigen (Rapid) Positive NEGATIVE White Blood Count 8.3 # 4.4-10.8 10^3/uL Red Blood Count 4.28 4.0-5.20 10^6/uL Hemoglobin 13.7 12.2-16.2 g/dL Hematocrit 41.6 36.0-46.0 % Mean Corpuscular Volume 97.2 80.0-100.0 fL Mean Corpuscular Hemoglobin 32.0 28.0-32.0 pg Mean Corpuscular Hemoglobin Concent 32.9 32.0-36.0 g/dL Red Cell Distribution Width 14.2 11.8-14.3 % Platelet Count 120 L 140-450 10^3/uL Mean Platelet Volume 8.9 6.9-10.8 fL Neutrophils (%) (Auto) 83.0 H 37.0-80.0 % Lymphocytes (%) (Auto) 9.9 L 10.0-50.0 % Monocytes (%) (Auto) 6.9 0.0-12.0 % Eosinophils (%) (Auto) 0.0 0.0-7.0 % Basophils (%) (Auto) 0.2 0.0-2.0 % Neutrophils # (Auto) 6.9 1.6-8.6 10 ^3/uL Lymphocytes # (Auto) 0.8 0.4-5.4 10 ^3/uL Monocytes # (Auto) 0.6 0-1.3 10 ^3/uL Eosinophils # (Auto) 0 0-0.8 10 ^3/uL Basophils # (Auto) 0 0-0.2 10 ^3/uL Nucleated Red Blood Cells 0.2 % D-Dimer, Quantitative 2.53 H 0.0-0.49 mg/L FEU Sodium Level 131 #L 136-145 mmol/L Potassium Level 2.7 L 3.5-5.1 mmol/L Chloride Level 91 #L 98-107 mmol/L Carbon Dioxide Level 24 20-31 mmol/L Anion Gap 16 H 5-15 Blood Urea Nitrogen 8 L 9-23 mg/dL Creatinine 0.81 0.550-1.02 mg/dL Glomerular Filtration Rate Calc 77 >90 mL/min BUN/Creatinine Ratio 9.9 L 10.0-20.0 Serum Glucose 82 74-106 mg/dL Calcium Level 8.3 L 8.7-10.4 mg/dL B-Type Natriuretic Peptide 104.51 0-100 pg/mL Blood Gas Specimen Type Arterial Blood Gas Sample Site Right radial Blood Gas Patient Temperature 37.0 Arterial Blood Date Drawn [id number] Arterial Blood pH 7.459 H 7.350-7.450 Arterial Blood Partial Pressure CO2 29.4 L 32.0-45.0 mmHg Arterial Blood Partial Pressure O2 75.9 L 83.0-108.0 mmHg Arterial Blood HCO3 20.4 L 21.0-28.0 mmol/L Arterial Blood Oxygen Saturation 94.8 94.0-98.0 % Arterial Blood Base Excess -2.3 L -2.0-3.0 mmol/L Arterial Blood Oxyhemoglobin 93.6 L 94.0-98.0 % Arterial Blood Carboxyhemoglobin 1.2 0.5-1.5 % Arterial Blood Methemoglobin 0.1 0.0-1.5 % Mian Test Yes Blood Gas Total Hemoglobin 13.40 12.0-16.0 g/dL Blood Gas Liter Flow 6.00 Blood Gas Modality Mask - simple Blood Gas Spontaneous Rate 24 FiO2 % 40.0 Test 07/20/24 21:23 Range/Units Urine Color Light-yellow Yellow Urine Clarity Clear Clear Urine pH 5.5 5.0-9.0 Urine Specific [place] 1.013 1.001-1.035 Urine Protein Negative Negative Urine Ketones 3+ H Negative Urine Blood Trace H Negative /uL Urine Nitrite Negative Negative Urine Bilirubin Negative Negative Urine Urobilinogen Normal Negative mg/dL Urine Leukocyte Esterase Negative Negative /uL Urine RBC 1 0 - 4 /hpf Urine Microscopic WBC < 1 0-5 /HPF Urine Squamous Epithelial Cells None seen <5 /hpf Urine Bacteria None seen None Seen /hpf Urine Glucose Normal Normal mg/dL Assessment/Plan Assessment/Plan Acute metabolic encephalopathy, likely due to respiratory failure/hypoxia Acute hypoxic respiratory failure, likely due to pneumonia Pneumonia, likely due to Gram-negative Gram-positive bacteria/viral COVID-19 NSTEMI type 2, likely due to above Sputum, blood and urine culture, check MRSA Empiric antibiotic, vancomycin, meropenem and azithromycin Remdesivir and dexamethasone Breathing treatment Oxygen through Oxymizer History of hypothyroidism, continue Synthroid Ulcerative colitis, ? flare-up, continue mesalamine and stool study Rheumatoid arthritis History of CVA, continue atorvastatin Immunosuppressant status, considering patient's age and multiple immunosuppressive Hypokalemia, repleted Hypomagnesemia, repleted Mild hyponatremia Thrombocytopenia Raised D-dimer Check CT angio Bilateral lower limb Doppler next DIET: NPO DVT PROPHYLAXIS: Lovenox GI PROPHYLAXIS:: Protonix CODE STATUS: Goal of care for more than 19 minutes with the patient has been, DNR DISPOSITION: DIPAK Patient's status and plan discussed with the patient and the patient's . Case discussed with Dr. Sena. Plan discussed with: Patient, Other (RN) My Orders Orders - SCOTT TONG RESDITONEY Procedure Category Date Status Time Magnesium LAB 07/20/24 In Process 23:24 Potassium Chl PHA 07/20/24 In Process 20meq/100ml 23:30 Date of Service: Jul 20, 2024 Billing Provider: MANJINDER SENA MD Common Visit Codes: [id number] INP/OBS CARE (HIGH) Secondary Visit Codes: [id number] CARE PLAN 30 MINUTES SCOTT TONG RESDIENT Jul 20, 2024 23:56 MANJINDER SENA MD Jul 21, 2024 15:49
[2024-07-21] VITALS (12 sets, daily range): BP systolic 150; BP diastolic 72; PULSE 89–104; RESP 16–20; TEMP 97.6; O2SAT 92–100
[2024-07-21] MEDS ORDERED: HYDROcodone-ACET 5/325MG TAB PO PRN
[2024-07-21] MEDS ORDERED: ACETAMINOPHEN 325 MG TAB PO PRN
[2024-07-21] MEDS: POTASSIUM CHL 20MEQ/100ML 50 ML IV SCH (00:17)
[2024-07-21] MEDS: POTASSIUM CHL IV ONE (00:25)
--- NOTE | 2024-07-21 01:27 | DVH ---
CHEST RADIOGRAPH Indication: sob Technique: Single frontal view of the chest was obtained COMPARISON: XY CHEST PORTABLE on DOS: 07/16/24, XY CHEST PORTABLE on DOS: 07/14/24 FINDINGS: Lines and Tubes: None Lungs: Mild pulmonary vascular congestion which was not present on the prior chest x-ray from 07/16/24 . No pulmonary infiltrates noted. Pleura: No effusion. No pneumothorax. Cardiomediastinal contours: Unremarkable Bones: Unremarkable IMPRESSION: Mild pulmonary vascular congestion.
[2024-07-21] MEDS ORDERED: REMDESIVIR PER PHARMACY 0 ML IV SCH (01:30)
[2024-07-21] MEDS ORDERED: VANCOMYCIN PER PHARMACY 0 MG IV SCH (01:30)
[2024-07-21] MEDS ORDERED: LOPERAMIDE HCL 2 MG CAP/TAB PO PRN (01:45)
[2024-07-21] MEDS: DexAMETHasone SOD PHOS 4 MG/1ML SDV INJ IV ONE (02:01)
[2024-07-21] MEDS: MAGNESIUM SULFATE 1GM/100ML 100 ML IV ONE (02:01)
[2024-07-21] MEDS: AZITHROMYCIN 500MG/ 250ML 250 ML IV ONE (03:00)
[2024-07-21] MEDS: MEROPENEM 1GM IVPB 50 ML IV ONE (03:00)
[2024-07-21] MEDS: IOHEXOL 350 MG/ML 100ML IJ ONE ×2 (03:10→08:44)
[2024-07-21] MEDS: MESALAMINE 400mg Delayed Release Cap PO ONE (03:30)
--- NOTE | 2024-07-21 05:37 | ECG ---
[facility] Test Date: 2024-07-20 Test Time: 21:53:38 Pat Name: FAHEEM WEINSTEIN Department: ED Room: 0236T Gender: F Theater Projectionist: YINKA : 1950 Requested By: DAVID SEE Order Number: [id number] Reading MD: Dagoberto Mcfadden Measurements Intervals Max Rate: 121 P: 58 WV: 159 QRS: 34 QRSD: 102 T: 32 QT: 317 QTc: 450 Interpretive Statements Sinus tachycardia Probable left atrial enlargement Anteroseptal infarct, age indeterminate Electronically Signed On 07-23-2024 14:00:13 PDT by Dagoberto Mcfadden Please click the below link to view image of tracing.
--- NOTE | 2024-07-21 05:37 | ECG ---
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
--- NOTE | 2024-07-21 05:38 | ECG ---
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
[2024-07-21] MEDS ORDERED: AZTREONAM 1GM INJ 1 GM in D5W 5% 50 ML IV SCH (06:00)
[2024-07-21 06:03] LABS: Basophils # (auto) 0 10 ^3/uL (0-0.2); Basophils % (auto) 0.4 % (0.0-2.0); Eosinophils # (auto) 0 10 ^3/uL (0-0.8); Hematocrit 37.7 % (36.0-46.0); Hemoglobin 12.5 g/dL (12.2-16.2); Lymphocytes # (auto) 0.2 10 ^3/uL (0.4-5.4); Mean Corpuscular Hemoglobin 31.8 pg (28.0-32.0); Mean Corpuscular Volume 96.3 fL (80.0-100.0); Monocytes # (auto) 0.4 10 ^3/uL (0-1.3); Monocytes % (auto) 3.5 % (0.0-12.0); Neutrophils # (auto) 10.6 10 ^3/uL (1.6-8.6); Neutrophils % (auto) 94.1 % (37.0-80.0); Platelet Count (auto) 125 10^3/uL (140-450); Red Blood Cells 3.92 10^6/uL (4.0-5.20); Red Cell Distribution Width 14.2 % (11.8-14.3); White Blood Cell 11.3 10^3/uL (4.4-10.8)
[2024-07-21] MEDS: IPRATROPIUM BROM 0.5 MG/2.5ML INH SOL NEB SCH (06:07)
[2024-07-21] MEDS: LEVALBUTEROL HCL 1.25 MG/3 ML NEB NEB SCH (06:07)
[2024-07-21 06:13] LABS: INR 1.08 (0.9-1.15); Partial Thromboplastin Time 23.6 SEC (24.5-34.5); Prothrombin Time 11.4 sec (9.3-11.8)
[2024-07-21 06:29] LABS: Alanine Aminotransferase 34 U/L (7-40); Anion Gap 13 (5-15); Aspartate Aminotransferase 38 U/L (13-40); BUN/Creatinine Ratio 11.1 (10.0-20.0); Carbon Dioxide 22 mmol/L (20-31); Chloride 101 mmol/L (98-107)
[2024-07-21 06:30] LABS: Bilirubin, Total 0.7 mg/dL (0.2-1.0)
[2024-07-21 06:31] LABS: Albumin 3.2 g/dL (3.2-4.8); Alkaline Phosphatase 42 U/L (46-116); Blood Urea Nitrogen 7 mg/dL (9-23); Calcium 7.5 mg/dL (8.7-10.4); Glucose 148 mg/dL (74-106); Potassium 3.5 mmol/L (3.5-5.1); Sodium 136 mmol/L (136-145); Total Protein 5.1 g/dL (5.7-8.2)
[2024-07-21 06:35] LABS: Bilirubin, Total 0.7 mg/dL (0.2-1.0)
[2024-07-21] MEDS: MESALAMINE 400mg Delayed Release Cap PO SCH (06:38)
[2024-07-21 06:40] LABS: Albumin 3.1 g/dL (3.2-4.8); Bilirubin, Direct 0.3 mg/dL (<0.3); Total Protein 4.8 g/dL (5.7-8.2)
[2024-07-21] MEDS: LEVOTHYROXINE SODIUM 88 MCG TAB PO SCH (07:06)
[2024-07-21] MEDS: REMDESIVIR 200mg in NS 210mL LOADING DOSE ADULT IV ONE (08:45)
[2024-07-21] MEDS: ENOXAPARIN SOD 40 MG/0.4 ML SYRINGE SC SCH (09:31)
[2024-07-21] MEDS: PANTOPRAZOLE 40 MG TAB PO SCH (09:33)
[2024-07-21] MEDS: ATORVASTATIN 20 MG TAB PO SCH (09:33)
--- NOTE | 2024-07-21 09:38 | DVH ---
CLINICAL INFORMATION: Elevated D-dimer. TECHNIQUE: Axial CTA images of the chest were obtained after the uneventful administration of 100 mL of Omnipaque 350 IV contrast. Coronal and sagittal reformatted images and MIP images were obtained, reviewed, and stored. One or more of the following dose reduction techniques were used: Automated exp osure control. Adjustment of mA and/or kV according to patient size. CTDIvol = 5.92 mGy DLP = 352.12 mGy-cm COMPARISON: Chest radiograph dated 07/20/2024 FINDINGS: Pulmonary arteries: No central or lobar pulmonary embolism. Limited evaluation for segmental or subse gmental pulmonary emboli due to respiratory motion artifact. Aorta: No aneurysm or dissection. Moderate atherosclerotic calcification. Cardiac: Heart size is within normal limits. Moderate coronary artery calcification. Mediastinum/sung: No mass or adenopathy. Lungs: Respiratory motion artifact limits evaluation. There are scattered areas of subsegmental atele ctasis. Small ground-glass opacities and ill-defined patchy airspace opacities are seen bilaterally. No pneumothorax or pleural effusion. Chest wall: No mass or other abnormality. Upper abdomen: Hepatic steatosis. Cholecystectomy. Bones: No fracture or suspicious intraosseous lesions. IMPRESSION: 1. No central or lobar pulmonary embolism. Evaluation for segmental or subsegmental pulmonary emboli is limited due to respiratory motion artifact. 2. Small bilateral ground-glass opacities and ill-defined patchy airspace opacities, most likely infe ctious or inflammatory in nature. No dense focal consolidation, pneumothorax, or pleural effusion. 3. Additional findings as described above.
[2024-07-21] MEDS ORDERED: REMDESIVIR 200mg in NS 210mL LOADING DOSE ADULT IV ONE (10:00)
--- NOTE | 2024-07-21 10:11 | DVH ---
BILATERAL LOWER EXTREMITY VENOUS DOPPLER CLINICAL HISTORY: raised d dimer Technique: Duplex Doppler evaluation of the deep venous systems of both lower extremities from the co mmon femoral veins to the popliteal veins including color Doppler and spectral/pulsed waveform analys is was performed. COMPARISON: US BILAT LOWER DVT on DOS: 07/15/24 FINDINGS: The right and left common femoral, superficial femoral, popliteal, posterior tibial veins and trifur cations appear patent with normal augmentation, phasicity, compressibility and color-flow. There is a 3.7 cm cystic collection in the right popliteal fossa likely Gautam's cyst. IMPRESSION: 1. There is no sonographic evidence for DVT in the lower extremities. HS:Y
[2024-07-21] MEDS: VANCOMYCIN 1GM/250ML KIT 250 ML IV SCH (11:35)
--- NOTE | 2024-07-21 12:25 | DVHPN2 ---
Progress Note Date Seen: Jul 21, 2024 Medical Necessity Reason Pt with a Central, PICC or Fol: No Subjective Patient reports: No new complaints Review of Systems: HEENT:Normal, CVS:Normal, RESPIRATORY:Normal, GI:Normal, :Normal, MSK:Normal, NEURO:Normal Objective vital signs Vital Sign Date Time Temp Pulse Resp B/P (MAP) Pulse Ox O2 Delivery O2 Flow Rate FiO2 07/21/24 12:00 99 07/21/24 11:49 16 100 07/21/24 11:43 Nasal Cannula* 4 36 07/21/24 09:16 98.3 170/51 (90) 98.3 Total Intake and Output 07/20/24 07/20/24 07/21/24 15:00 23:00 07:00 Intake Total 2100 ml 150 ml Balance 2100 ml 150 ml medications Current Medications Medications Dose Ordered Sig/Quinn Route Start Time Stop Time Status Last Admin Dose Admin Acetaminophen 650 mg Q6HP PRN PO 07/21/24 00:00 Acetaminophen/ Hydrocodone Bitart 1 tab Q4HP PRN PO 07/21/24 00:00 Atorvastatin Calcium 20 mg DAILY PO 07/21/24 10:00 07/21/24 09:33 20 MG Levothyroxine Sodium 88 mcg QAM PO 07/21/24 07:00 07/21/24 07:06 88 MCG Pantoprazole Sodium 40 mg DAILY PO 07/21/24 10:00 07/21/24 09:33 40 MG Meropenem 50 ml @ 17 mls/hr Q8HR IV 07/21/24 14:00 Ipratropium [place] 0.5 mg Q6HWA NEB 07/21/24 06:00 07/21/24 11:43 0.5 MG Levalbuterol HCl 0.625 mg Q6HR NEB 07/21/24 06:00 07/21/24 11:43 0.625 MG Mesalamine 800 mg TID PO 07/21/24 06:00 07/21/24 06:38 800 MG Remdesivir 100 mg/ Sodium Chloride 250 ml @ 250 mls/hr DAILY@1500 IV 07/22/24 15:00 07/23/24 15:59 Cancel Remdesivir 100 mg/ Sodium Chloride 250 ml @ 250 mls/hr DAILY@1500 IV 07/22/24 15:00 07/25/24 15:59 Cancel Nitroglycerin 0.4 mg Q5MINP PRN SL 07/21/24 12:30 UNV Morphine Sulfate 2 mg Q30M PRN IV 07/21/24 12:30 UNV Examination: GENERAL:Normal, HEENT:Normal, NECK:Normal, LUNGS:Normal, LUNGS:Abnormal (on oxygen), CVS:Normal, ABDOMEN:Normal, MSK:Normal, MSK:Abnormal (left knee bruise), SKIN:Normal, NEURO:Normal, :Normal laboratory and microbiology Laboratory Tests 07/21/24 05:45 Test 07/21/24 05:45 Range/Units Serum Glucose 148 H 74-106 mg/dL Problem List/Assessment/Plan Problem List/Assessment/Plan #1 acute resp failure: cont oxygen #2 covid 19 pneumonia ? 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: carotid doppler #11 obesity advance care planning- dnr- time spent 19 mins Plan discussed with: Patient My Orders My Orders Orders - BETTY ROGER MD Procedure Category Date Status Time Admit ADMIT 07/21/24 Transmitted 12:17 Oxygen By Nasal RT 07/21/24 Transmitted Cannula 12:17 Nitroglycerin PHA 07/21/24 Logged Sublingual (Ntrostat 12:30 Morphine Sulfate PHA 07/21/24 Logged Injection 12:30 Clear Liq Diet DIET 07/21/24 Transmitted Lunch Transfer Orders XFER 07/21/24 Transmitted 12:18 * Gi [employer] Lab Technician CONS 07/21/24 Transmitted 12:18 Basic Metabolic Panel LAB 07/22/24 Verified 06:00 Complete Blood Count LAB 07/22/24 Verified 06:00 Chest Portable XY 07/22/24 Transmitted 06:00 Date of Service: Jul 21, 2024 Billing Provider: BETTY ROGER MD Common Visit Codes: [id number] INP/OBS CARE(HIGH) Secondary Visit Codes: [id number] CARE PLAN 30 MINUTES BETTY ROGER MD Jul 21, 2024 12:25
[2024-07-21] MEDS ORDERED: MORPHINE SULFATE INJ 2 MG/ml SYRG IV PRN (12:30)
[2024-07-21] MEDS ORDERED: NITROGLYCERIN 0.4 MG SL TAB SL PRN (12:30)
--- NOTE | 2024-07-21 14:34 | DVHINCON2 ---
GI Consult Consult Note GI consult note Date of Consultation: 07/21/2024 Chief Complaint: GI bleed and ulcerative colitis Referring Physician: Dr. Cantu H&P: 74-year-old female admitted with generalized weakness and shortness of breath Patient diagnosed with COVID and influenza No abdominal pain Patient admits to loose stool about 4-5 episodes every day for the last 2-3 days, and has also noticed red blood in stool Patient has nausea and vomiting, no hematemesis Patient diagnosed with ulcerative colitis, last colonoscopy five years [address] with Dr. Garcia. Treated with Humira, which was stopped four weeks ago by Dr. Taylor, and was being evaluated for another medication Patient takes prednisone 10 mg every day on a maintenance basis Past Medical History: CVA, ulcerative colitis, hypertension, [place], hypothyroidism, rheumatoid arthritis and dyslipidemia Past Surgical History: Cholecystectomy Social History: NO smoking, drinking ETOH and use of illegal drugs. Family History: Noncontributory Review of Systems: Constitutional: no fever, chill, weight loss HEENT: no eye pain, no hearing loss, no oral lesion, no scleral icterus Heart: no chest pain, no chest pressure Lung: no cough, no dyspnea with exertion Abdomen: see HPI Physical exam: General: NAD, AAOX3 Chest: lung brar clear to auscultation Heart: RRR, no murmur Abdomen: non-distended, no tenderness to palpation, +BS Labs: Labs Test 07/21/24 05:45 07/21/24 00:45 07/20/24 23:14 07/20/24 21:56 Range/Units White Blood Count 11.3 #H 4.4-10.8 10^3/uL Red Blood Count 3.92 L 4.0-5.20 10^6/uL Hemoglobin 12.5 12.2-16.2 g/dL Hematocrit 37.7 36.0-46.0 % Mean Corpuscular Volume 96.3 80.0-100.0 fL Mean Corpuscular Hemoglobin 31.8 28.0-32.0 pg Mean Corpuscular Hemoglobin Concent 33.0 32.0-36.0 g/dL Red Cell Distribution Width 14.2 11.8-14.3 % Platelet Count 125 L 140-450 10^3/uL Mean Platelet Volume 9.1 6.9-10.8 fL Neutrophils (%) (Auto) 94.1 H 37.0-80.0 % Lymphocytes (%) (Auto) 2.0 L 10.0-50.0 % Monocytes (%) (Auto) 3.5 0.0-12.0 % Eosinophils (%) (Auto) 0.0 0.0-7.0 % Basophils (%) (Auto) 0.4 0.0-2.0 % Neutrophils # (Auto) 10.6 H 1.6-8.6 10 ^3/uL Lymphocytes # (Auto) 0.2 L 0.4-5.4 10 ^3/uL Monocytes # (Auto) 0.4 0-1.3 10 ^3/uL Eosinophils # (Auto) 0 0-0.8 10 ^3/uL Basophils # (Auto) 0 0-0.2 10 ^3/uL Nucleated Red Blood Cells 0.0 % Prothrombin Time 11.4 9.3-11.8 sec Prothrombin Time INR 1.08 0.9-1.15 Activated Partial Thromboplast Time 23.6 L 24.5-34.5 SEC Sodium Level 136 # 136-145 mmol/L Potassium Level 3.5 3.5-5.1 mmol/L Chloride Level 101 # 98-107 mmol/L Carbon Dioxide Level 22 20-31 mmol/L Anion Gap 13 5-15 Blood Urea Nitrogen 7 L 9-23 mg/dL Creatinine 0.63 0.550-1.02 mg/dL Glomerular Filtration Rate Calc 94 >90 mL/min BUN/Creatinine Ratio 11.1 10.0-20.0 Serum Glucose 148 H 74-106 mg/dL Calcium Level 7.5 L 8.7-10.4 mg/dL Total Bilirubin 0.7 0.2-1.0 mg/dL Direct Bilirubin 0.3 <0.3 mg/dL Aspartate Amino Transferase (AST) 38 13-40 U/L Alanine Aminotransferase (ALT) 34 7-40 U/L Alkaline Phosphatase 42 L 46-116 U/L Total Protein 5.1 L 5.7-8.2 g/dL Albumin 3.2 3.2-4.8 g/dL Troponin I High Sensitivity 46 *H </=34 ng/L Lactic Acid Level 1.6 0.4-2.0 mmol/L Magnesium Level 1.8 1.6-2.6 mg/dL Influenza Type A Antigen Negative Negative Influenza Type B Antigen Negative Negative SARS-CoV-2 Antigen (Rapid) Positive NEGATIVE Test 07/20/24 21:37 07/20/24 21:33 07/20/24 21:23 Range/Units D-Dimer, Quantitative 2.53 H 0.0-0.49 mg/L FEU B-Type Natriuretic Peptide 104.51 0-100 pg/mL Blood Gas Specimen Type Arterial Blood Gas Sample Site Right radial Blood Gas Patient Temperature 37.0 Arterial Blood Date Drawn [id number] Arterial Blood pH 7.459 H 7.350-7.450 Arterial Blood Partial Pressure CO2 29.4 L 32.0-45.0 mmHg Arterial Blood Partial Pressure O2 75.9 L 83.0-108.0 mmHg Arterial Blood HCO3 20.4 L 21.0-28.0 mmol/L Arterial Blood Oxygen Saturation 94.8 94.0-98.0 % Arterial Blood Base Excess -2.3 L -2.0-3.0 mmol/L Arterial Blood Oxyhemoglobin 93.6 L 94.0-98.0 % Arterial Blood Carboxyhemoglobin 1.2 0.5-1.5 % Arterial Blood Methemoglobin 0.1 0.0-1.5 % Mian Test Yes Blood Gas Total Hemoglobin 13.40 12.0-16.0 g/dL Blood Gas Liter Flow 6.00 Blood Gas Modality Mask - simple Blood Gas Spontaneous Rate 24 FiO2 % 40.0 Urine Color Light-yellow Yellow Urine Clarity Clear Clear Urine pH 5.5 5.0-9.0 Urine Specific [place] 1.013 1.001-1.035 Urine Protein Negative Negative Urine Ketones 3+ H Negative Urine Blood Trace H Negative /uL Urine Nitrite Negative Negative Urine Bilirubin Negative Negative Urine Urobilinogen Normal Negative mg/dL Urine Leukocyte Esterase Negative Negative /uL Urine RBC 1 0 - 4 /hpf Urine Microscopic WBC < 1 0-5 /HPF Urine Squamous Epithelial Cells None seen <5 /hpf Urine Bacteria None seen None Seen /hpf Urine Glucose Normal Normal mg/dL Imaging: Assessment: GI bleed Ulcerative colitis Acute respiratory failure COVID-19 pneumonia Plan: -discussed with Dr. Bates Mesalamine 800 mg t.i.d. Stool for WBC, bacterial culture, and C diff Methylprednisone 40 mg IV every 12 hours Recommend possible outpatient colonoscopy to re-evaluate for ulcerative colitis Outpatient follow-up with Dr. Taylor after acute symptoms have resolved for continuation of care Plan discussed with patient and RN Thank you for this consult Date of Service: Jul 21, 2024 Billing Provider: DIANE ORTIZ Common Visit Codes: CONSULT ONLY Consultation Codes: [id number] CONSULT <60MIN DIANE ORTIZ Jul 21, 2024 14:34
[2024-07-21] MEDS: MEROPENEM 1GM IVPB 50 ML IV SCH (14:39)
[2024-07-21] MEDS: guaiFENesin-DM 100/10mg/5ml SYR PO PRN (16:41)
[2024-07-21] MEDS: methylPREDNISolone SOD SUCC 40 MG/ML VL IV SCH (21:42)
[2024-07-21 22:32] LABS: Phencyclidine Screen, Urine Neg (NEGATIVE)
[2024-07-21 22:34] LABS: Amphetamine Screen, Urine Neg (NEGATIVE); Barbiturate Scree,Urine Neg (NEGATIVE); Benzodiazephine Screen, Urine Neg (NEGATIVE); Cannabinoid Screen, Urine Neg (NEGATIVE); Cocaine Screen, Urine Neg (NEGATIVE); Opiate Scree,Urine Neg (NEGATIVE)
[2024-07-22] VITALS (15 sets, daily range): BP systolic 150–171; BP diastolic 64–93; PULSE 81–113; RESP 16–20; TEMP 97.6–98; O2SAT 92–99
[2024-07-22 05:50] LABS: Basophils # (auto) 0 10 ^3/uL (0-0.2); Basophils % (auto) 0.1 % (0.0-2.0); Eosinophils # (auto) 0 10 ^3/uL (0-0.8); Hematocrit 34.3 % (36.0-46.0); Hemoglobin 11.7 g/dL (12.2-16.2); Lymphocytes # (auto) 0.3 10 ^3/uL (0.4-5.4); Lymphocytes % (auto) 2.2 % (10.0-50.0); Mean Corpuscular Hemoglobin 32.6 pg (28.0-32.0); Mean Corpuscular Hgb Conc. 34.2 g/dL (32.0-36.0); Mean Corpuscular Volume 95.3 fL (80.0-100.0); Monocytes # (auto) 0.8 10 ^3/uL (0-1.3); Monocytes % (auto) 6.9 % (0.0-12.0); Neutrophils # (auto) 10.6 10 ^3/uL (1.6-8.6); Neutrophils % (auto) 90.8 % (37.0-80.0); Nucleated Red Blood Cells % 0.1 %; Platelet Count (auto) 137 10^3/uL (140-450); Red Cell Distribution Width 14.3 % (11.8-14.3); White Blood Cell 11.7 10^3/uL (4.4-10.8)
[2024-07-22 06:00] LABS: Anion Gap 7 (5-15); Carbon Dioxide 26 mmol/L (20-31); Chloride 104 mmol/L (98-107); Sodium 137 mmol/L (136-145)
[2024-07-22 06:07] LABS: BUN/Creatinine Ratio 23.6 (10.0-20.0); Blood Urea Nitrogen 13 mg/dL (9-23)
[2024-07-22 06:18] LABS: Glucose 119 mg/dL (74-106); Potassium 3.4 mmol/L (3.5-5.1)
[2024-07-22 06:19] LABS: Calcium 7.7 mg/dL (8.7-10.4)
--- NOTE | 2024-07-22 06:53 | DVH ---
EXAM: XR Chest, 1 View CLINICAL INDICATION: CHF TECHNIQUE: Frontal view of the chest. COMPARISON: XY CHEST PORTABLE on DOS: 07/20/24, XY CHEST PORTABLE on DOS: 07/16/24, XY CHEST PORTABLE on DOS: 07/14/24 FINDINGS: LUNGS AND PLEURAL SPACES: Pulmonary venous congestion. No consolidation. No pneumothorax. HEART: Unremarkable. No cardiomegaly. MEDIASTINUM: Unremarkable. Normal mediastinal contour. BONES/JOINTS: Unremarkable. No acute fracture. OTHER FINDINGS: . IMPRESSION: Pulmonary venous congestion.
[2024-07-22] MEDS ORDERED: AZITHROMYCIN 500MG/ 250ML 250 ML IV SCH (10:00)
[2024-07-22] MEDS ORDERED: DexAMETHasone SOD PHOS 10MG/1ML VIAL INJ IV SCH (10:00)
--- NOTE | 2024-07-22 10:39 | DVHPN2 ---
Progress Note Date Seen: Jul 22, 2024 Medical Necessity Reason Pt with a Central, PICC or Fol: No Subjective Patient reports: No new complaints Review of Systems: HEENT:Normal, CVS:Normal, RESPIRATORY:Normal, GI:Normal, :Normal, MSK:Normal, NEURO:Normal Objective vital signs Vital Sign Date Time Temp Pulse Resp B/P (MAP) Pulse Ox O2 Delivery O2 Flow Rate FiO2 07/22/24 09:00 97.9 99 18 171/82 (111) 96 97.9 07/22/24 06:14 Nasal Cannula* 3 32 Total Intake and Output 07/21/24 07/21/24 07/22/24 15:00 23:00 07:00 Intake Total 300 ml 50 ml 700 ml Output Total 700 ml Balance 300 ml 50 ml 0 ml medications Current Medications Medications Dose Ordered Sig/Quinn Route Start Time Stop Time Status Last Admin Dose Admin Acetaminophen 650 mg Q6HP PRN PO 07/21/24 00:00 Acetaminophen/ Hydrocodone Bitart 1 tab Q4HP PRN PO 07/21/24 00:00 Atorvastatin Calcium 20 mg DAILY PO 07/21/24 10:00 07/21/24 09:33 20 MG Levothyroxine Sodium 88 mcg QAM PO 07/21/24 07:00 07/22/24 05:42 88 MCG Pantoprazole Sodium 40 mg DAILY PO 07/21/24 10:00 07/21/24 09:33 40 MG Meropenem 50 ml @ 17 mls/hr Q8HR IV 07/21/24 14:00 07/22/24 05:43 17 MLS/HR Ipratropium [place] 0.5 mg Q6HWA NEB 07/21/24 06:00 07/22/24 06:13 0.5 MG Levalbuterol HCl 0.625 mg Q6HR NEB 07/21/24 06:00 07/22/24 06:15 0.625 MG Mesalamine 800 mg TID PO 07/21/24 06:00 07/22/24 05:43 800 MG Remdesivir 100 mg/ Sodium Chloride 250 ml @ 250 mls/hr DAILY@1500 IV 07/22/24 15:00 07/23/24 15:59 Cancel Remdesivir 100 mg/ Sodium Chloride 250 ml @ 250 mls/hr DAILY@1500 IV 07/22/24 15:00 07/25/24 15:59 Cancel Nitroglycerin 0.4 mg Q5MINP PRN SL 07/21/24 12:30 Morphine Sulfate 2 mg Q30M PRN IV 07/21/24 12:30 Methylprednisolone Sodium Succinate 20 mg BID IV 07/21/24 22:00 07/21/24 21:42 20 MG Guaifenesin/ Dextromethorphan 10 ml Q4HP PRN PO 07/21/24 16:15 07/21/24 23:17 10 ML Examination: GENERAL:Normal, HEENT:Normal, NECK:Normal, LUNGS:Normal, LUNGS:Abnormal (on oxyggen), CVS:Normal, ABDOMEN:Normal, MSK:Normal, SKIN:Normal, NEURO:Normal, :Normal laboratory and microbiology Laboratory Tests 07/22/24 05:15 Test 07/22/24 05:15 Range/Units Serum Glucose 119 H 74-106 mg/dL Microbiology Date/Time Source Procedure Growth Status 07/20/24 21:37 Blood Blood Culture - Preliminary NO GROWTH AFTER 24 HOURS OF INCUBATION. Resulted Problem List/Assessment/Plan Problem List/Assessment/Plan #1 acute resp failure: cont oxygen #2 covid 19 pneumonia ? 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 acute diastolic heart failure: lasix iv advance care planning- dnr- time spent 19 mins Plan discussed with: Patient My Orders My Orders Orders - BETTY ROGER MD Procedure Category Date Status Time Admit ADMIT 07/21/24 Transmitted 12:17 Oxygen By Nasal RT 07/21/24 Transmitted Cannula 12:17 Nitroglycerin PHA 07/21/24 In Process Sublingual (Ntrostat 12:30 Morphine Sulfate PHA 07/21/24 In Process Injection 12:30 Clear Liq Diet DIET 07/21/24 Transmitted Lunch Transfer Orders XFER 07/21/24 Transmitted 12:18 * Gi [facility] Production Stage Manager CONS 07/21/24 Transmitted 12:18 Chest Portable XY 07/22/24 Resulted 06:00 Guaifenesin-Dextromet PHA 07/21/24 In Process Liquid (Robitussin 16:15 Mrsa Screen ANY 07/21/24 In Process 17:57 Dietary Evaluation Review Recommendations by RD: Increase Calorie Intake Comments: 1. On Clear Liquid diet; advance to GI Soft diet as medically able 2. Add oral supplements of Ensure Clear TID (provides 240 kcal, 8 gm pro per carton) 3. Pt not to go >5 days on CL diet only (Currently Day 3); recommend nutrition support meausres if unable to advance diet 4. Monitor/treat diarrhea and other sx r/t UC flare Expected Outcomes/Goals: Weight maintenance, improved GI sx, improved energy intake. Food and Nutrition Intake (Sev: <50% est energy req 5days Interpretation of weight loss: >2% in 1 week Protein Calorie Malnutrition: Severe Is there a minimum of two crit: Yes Date of Service: Jul 22, 2024 Billing Provider: BETTY ROGER MD Common Visit Codes: [id number] INP/OBS CARE(HIGH) Secondary Visit Codes: [id number] CARE PLAN 30 MINUTES BETTY ROGER MD Jul 22, 2024 10:39
--- NOTE | 2024-07-22 12:47 | DVHPN2 ---
Subjective Patient is still complains of abdominal pressure, feels like she has to go have bowel movements Patient had two bowel movements this morning, with red blood Patient has started on steroids, has not noticed much change with a bowel movements yet Changes from previous H/P or p: No Changes Objective Vitals Vital Signs Date Time Temp Pulse Resp B/P (MAP) Pulse Ox O2 Delivery O2 Flow Rate FiO2 07/22/24 11:16 109 16 97 07/22/24 11:08 Nasal Cannula* 3 32 07/22/24 09:00 97.9 171/82 (111) 97.9 Intake/Output Intake and Output 07/22/24 07:00 Intake Total 1050 ml Output Total 700 ml Balance 350 ml Intake Oral 650 ml IV Total 400 ml Output Urine Total 700 ml Medications Current Medications Medications Dose Ordered Sig/Quinn Route Start Time Stop Time Status Last Admin Dose Admin Acetaminophen 650 mg Q6HP PRN PO 07/21/24 00:00 Acetaminophen/ Hydrocodone Bitart 1 tab Q4HP PRN PO 07/21/24 00:00 Atorvastatin Calcium 20 mg DAILY PO 07/21/24 10:00 07/22/24 11:19 20 MG Levothyroxine Sodium 88 mcg QAM PO 07/21/24 07:00 07/22/24 05:42 88 MCG Pantoprazole Sodium 40 mg DAILY PO 07/21/24 10:00 07/22/24 11:19 40 MG Ipratropium [place] 0.5 mg Q6HWA NEB 07/21/24 06:00 07/22/24 11:07 0.5 MG Levalbuterol HCl 0.625 mg Q6HR NEB 07/21/24 06:00 07/22/24 11:07 0.625 MG Mesalamine 800 mg TID PO 07/21/24 06:00 07/22/24 05:43 800 MG Remdesivir 100 mg/ Sodium Chloride 250 ml @ 250 mls/hr DAILY@1500 IV 07/22/24 15:00 07/23/24 15:59 Cancel Remdesivir 100 mg/ Sodium Chloride 250 ml @ 250 mls/hr DAILY@1500 IV 07/22/24 15:00 07/25/24 15:59 Cancel Nitroglycerin 0.4 mg Q5MINP PRN SL 07/21/24 12:30 Morphine Sulfate 2 mg Q30M PRN IV 07/21/24 12:30 Ceftriaxone Sodium 50 ml @ 100 mls/hr DAILY@09 IV 07/23/24 09:00 Metronidazole 100 ml @ 100 mls/hr Q8HR IV 07/22/24 14:00 Guaifenesin 200 mg Q6HP PRN PO 07/22/24 10:45 Methylprednisolone Sodium Succinate 40 mg BID IV 07/22/24 22:00 Laboratory Results Laboratory Tests 07/22/24 05:15 Chemistry Test 07/22/24 05:15 Calcium Level 7.7 mg/dL (8.7-10.4) L Urinalysis Test 07/20/24 21:23 Urine Color Light-yellow (Yellow) Urine Clarity Clear (Clear) Urine pH 5.5 (5.0-9.0) Urine Specific [place] 1.013 (1.001-1.035) Urine Protein Negative (Negative) Urine Ketones 3+ (Negative) H Urine Blood Trace /uL (Negative) H Urine Nitrite Negative (Negative) Urine Bilirubin Negative (Negative) Urine Urobilinogen Normal mg/dL (Negative) Urine Leukocyte Esterase Negative /uL (Negative) Urine RBC 1 /hpf (0 - 4) Urine Microscopic WBC < 1 /HPF (0-5) Urine Squamous Epithelial Cells None seen /hpf (<5) Urine Bacteria None seen /hpf (None Seen) Urine Glucose Normal mg/dL (Normal) Microbiology Microbiology Date/Time Source Procedure Growth Status 07/20/24 21:37 Blood Blood Culture - Preliminary NO GROWTH AFTER 24 HOURS OF INCUBATION. Resulted 07/20/24 21:23 Voided Urine Urine Culture - Preliminary Resulted Labs and/or images reviewed: Labs reviewed by me Assessment/Plan Assessment/Plan GI bleed Ulcerative colitis Acute respiratory failure COVID-19 pneumonia Plan Discussed with Dr. Bates Increase methylprednisolone to 40 mg IV b.i.d. Monitor labs Full liquid diet We will continue to monitor the patient Plan discussed with: Patient, Other (RN and hospitalist) Date of Service: Jul 22, 2024 Billing Provider: DIANE ORTIZ Common Visit Codes: [id number] INP/OBS CARE(HIGH) DIANE ORTIZ Jul 22, 2024 12:47
[2024-07-22] MEDS: FUROSEMIDE 20 MG/2 ML VIAL IV ONE (13:18)
[2024-07-22] MEDS: POTASSIUM CHLORIDE 40 MEQ, LIDOCAINE 1% (LOCAL ANESTH.) 4 ML in SODIUM CHL 0.9% 250 ML IV ONE (13:53)
[2024-07-22] MEDS ORDERED: REMDESIVIR 100mg in NS 230mL (5 DAY REGIMEN) IV SCH (15:00)
[2024-07-22] MEDS ORDERED: REMDESIVIR 100mg in NS 230mL (3 DAY REGIMEN) IV SCH (15:00)
[2024-07-22] MEDS: metroNIDAZOLE 500MG/100ML 100 ML IV SCH (15:28)
[2024-07-22] MEDS: guaiFENesin 200 MG/10 ML UD PO PRN (16:31)
[2024-07-22] MEDS ORDERED: ADAL40KI2 SC (17:16)
[2024-07-22] MEDS: methylPREDNISolone SOD SUCC 40 MG/ML VL IV SCH (22:00)
[2024-07-23] VITALS (18 sets, daily range): BP systolic 111–155; BP diastolic 69–90; PULSE 80–110; RESP 18–20; TEMP 97.7–98.3; O2SAT 90–100
[2024-07-23 05:37] LABS: Basophils # (auto) 0 10 ^3/uL (0-0.2); Basophils % (auto) 0.1 % (0.0-2.0); Eosinophils # (auto) 0 10 ^3/uL (0-0.8); Hematocrit 35.1 % (36.0-46.0); Hemoglobin 11.7 g/dL (12.2-16.2); Lymphocytes # (auto) 0.2 10 ^3/uL (0.4-5.4); Lymphocytes % (auto) 2.1 % (10.0-50.0); Mean Corpuscular Hemoglobin 31.8 pg (28.0-32.0); Mean Corpuscular Hgb Conc. 33.2 g/dL (32.0-36.0); Mean Corpuscular Volume 95.7 fL (80.0-100.0); Monocytes # (auto) 0.6 10 ^3/uL (0-1.3); Monocytes % (auto) 7.5 % (0.0-12.0); Neutrophils # (auto) 7.5 10 ^3/uL (1.6-8.6); Neutrophils % (auto) 90.3 % (37.0-80.0); Nucleated Red Blood Cells % 0.1 %; Platelet Count (auto) 159 10^3/uL (140-450); Red Blood Cells 3.67 10^6/uL (4.0-5.20); Red Cell Distribution Width 14.3 % (11.8-14.3); White Blood Cell 8.3 10^3/uL (4.4-10.8)
[2024-07-23 05:48] LABS: Chloride 101 mmol/L (98-107)
[2024-07-23 05:49] LABS: Anion Gap 9 (5-15); Carbon Dioxide 25 mmol/L (20-31)
[2024-07-23 05:54] LABS: BUN/Creatinine Ratio 26.7 (10.0-20.0); Blood Urea Nitrogen 16 mg/dL (9-23)
[2024-07-23 05:55] LABS: Calcium 7.9 mg/dL (8.7-10.4); Glucose 116 mg/dL (74-106); Potassium 3.2 mmol/L (3.5-5.1); Sodium 135 mmol/L (136-145)
[2024-07-23] MEDS: cefTRIAXone 1GM/50ML D5W 50 ML IV SCH (09:00)
--- NOTE | 2024-07-23 10:53 | DVHPN2 ---
Progress Note Date Seen: Jul 23, 2024 Medical Necessity Reason Pt with a Central, PICC or Fol: No Subjective Patient reports: No new complaints Review of Systems: HEENT:Normal, CVS:Normal, RESPIRATORY:Normal, GI:Normal, :Normal, MSK:Normal, NEURO:Normal Objective vital signs Vital Sign Date Time Temp Pulse Resp B/P (MAP) Pulse Ox O2 Delivery O2 Flow Rate FiO2 07/23/24 09:00 97.9 90 18 134/70 (91) 90 97.9 07/23/24 06:26 Nasal Cannula* 2 28 Total Intake and Output 07/22/24 07/22/24 07/23/24 15:00 23:00 07:00 Intake Total 300 ml 550 ml Output Total 1000 ml Balance -700 ml 550 ml medications Current Medications Medications Dose Ordered Sig/Quinn Route Start Time Stop Time Status Last Admin Dose Admin Acetaminophen 650 mg Q6HP PRN PO 07/21/24 00:00 Acetaminophen/ Hydrocodone Bitart 1 tab Q4HP PRN PO 07/21/24 00:00 Atorvastatin Calcium 20 mg DAILY PO 07/21/24 10:00 07/22/24 11:19 20 MG Levothyroxine Sodium 88 mcg QAM PO 07/21/24 07:00 07/23/24 05:55 88 MCG Pantoprazole Sodium 40 mg DAILY PO 07/21/24 10:00 07/22/24 11:19 40 MG Ipratropium [place] 0.5 mg Q6HWA NEB 07/21/24 06:00 07/23/24 06:21 0.5 MG Levalbuterol HCl 0.625 mg Q6HR NEB 07/21/24 06:00 07/23/24 06:21 0.625 MG Mesalamine 800 mg TID PO 07/21/24 06:00 07/23/24 05:52 800 MG Remdesivir 100 mg/ Sodium Chloride 250 ml @ 250 mls/hr DAILY@1500 IV 07/22/24 15:00 07/23/24 15:59 Cancel Remdesivir 100 mg/ Sodium Chloride 250 ml @ 250 mls/hr DAILY@1500 IV 07/22/24 15:00 07/25/24 15:59 Cancel Nitroglycerin 0.4 mg Q5MINP PRN SL 07/21/24 12:30 Morphine Sulfate 2 mg Q30M PRN IV 07/21/24 12:30 Ceftriaxone Sodium 50 ml @ 100 mls/hr DAILY@09 IV 07/23/24 09:00 Metronidazole 100 ml @ 100 mls/hr Q8HR IV 07/22/24 14:00 07/23/24 05:52 100 MLS/HR Guaifenesin 200 mg Q6HP PRN PO 07/22/24 10:45 07/22/24 16:31 200 MG Methylprednisolone Sodium Succinate 40 mg BID IV 07/22/24 22:00 07/22/24 22:00 40 MG Examination: GENERAL:Normal, HEENT:Normal, NECK:Normal, LUNGS:Normal, LUNGS:Abnormal (on oxygen), CVS:Normal, ABDOMEN:Normal, MSK:Normal, SKIN:Normal, NEURO:Normal, :Normal laboratory and microbiology Laboratory Tests 07/23/24 05:11 Test 07/23/24 05:11 Range/Units Serum Glucose 116 H 74-106 mg/dL Microbiology Date/Time Source Procedure Growth Status 07/21/24 17:50 Nose MRSA Screen - Final Complete 07/20/24 21:37 Blood Blood Culture - Preliminary NO GROWTH AFTER 48 HOURS OF INCUBATION. Resulted 07/20/24 21:23 Voided Urine Urine Culture - Preliminary Resulted Problem List/Assessment/Plan Problem List/Assessment/Plan #1 acute resp failure: cont oxygen #2 covid 19 pneumonia ? sepsis: iv antibiotics #3 gi bleed: improved #4 hypothyroidism #5 left knee bruise/trauma #6 nstemi ?type 2 #8 RA #9 Ulcerative colitis ?flare up: steroids #10 old cva: carotid doppler #11 obesity #12 ? acute diastolic heart failure: lasix iv advance care planning- dnr- time spent 19 mins Plan discussed with: Patient Dietary Evaluation Review Recommendations by RD: Increase Calorie Intake Comments: 1. On Clear Liquid diet; advance to GI Soft diet as medically able 2. Add oral supplements of Ensure Clear TID (provides 240 kcal, 8 gm pro per carton) 3. Pt not to go >5 days on CL diet only (Currently Day 3); recommend nutrition support meausres if unable to advance diet 4. Monitor/treat diarrhea and other sx r/t UC flare Expected Outcomes/Goals: Weight maintenance, improved GI sx, improved energy intake. Food and Nutrition Intake (Sev: <50% est energy req 5days Interpretation of weight loss: >2% in 1 week Protein Calorie Malnutrition: Severe Is there a minimum of two crit: Yes Date of Service: Jul 23, 2024 Billing Provider: BETTY ROGER MD Common Visit Codes: [id number] INP/OBS CARE(HIGH) BETTY ROGER MD Jul 23, 2024 10:53
[2024-07-23] MEDS: POTASSIUM EFFERVESENT TAB 25 MEQ PO ONE (13:11)
[2024-07-23] MEDS: metroNIDAZOLE 500 MG TAB PO SCH (14:33)
--- NOTE | 2024-07-23 22:27 | DVHPN2 ---
Progress Note - Dictate Date Seen: Jul 23, 2024 Medical Necessity Reason Pt with a Central, PICC or Fol: No Subjective No new complaints Patient feels slightly better Two bowel movements recorded with less vital signs Vital Sign Date Time Temp Pulse Resp B/P (MAP) Pulse Ox O2 Delivery O2 Flow Rate FiO2 07/23/24 21:22 80 18 111/81 93 2.0 28 07/23/24 21:00 98.1 98.1 07/23/24 19:50 Nasal Cannula* Total Intake and Output 07/22/24 07/22/24 07/23/24 15:00 23:00 07:00 Intake Total 300 ml 550 ml Output Total 1000 ml Balance -700 ml 550 ml medications Current Medications Medications Dose Ordered Sig/Quinn Route Start Time Stop Time Status Last Admin Dose Admin Acetaminophen 650 mg Q6HP PRN PO 07/21/24 00:00 Acetaminophen/ Hydrocodone Bitart 1 tab Q4HP PRN PO 07/21/24 00:00 Atorvastatin Calcium 20 mg DAILY PO 07/21/24 10:00 07/23/24 10:00 20 MG Levothyroxine Sodium 88 mcg QAM PO 07/21/24 07:00 07/23/24 05:55 88 MCG Pantoprazole Sodium 40 mg DAILY PO 07/21/24 10:00 07/23/24 10:00 40 MG Ipratropium [place] 0.5 mg Q6HWA NEB 07/21/24 06:00 07/23/24 20:03 0.5 MG Levalbuterol HCl 0.625 mg Q6HR NEB 07/21/24 06:00 07/23/24 20:04 0.625 MG Mesalamine 800 mg TID PO 07/21/24 06:00 07/23/24 14:00 800 MG Remdesivir 100 mg/ Sodium Chloride 250 ml @ 250 mls/hr DAILY@1500 IV 07/22/24 15:00 07/23/24 15:59 Cancel Remdesivir 100 mg/ Sodium Chloride 250 ml @ 250 mls/hr DAILY@1500 IV 07/22/24 15:00 07/25/24 15:59 Cancel Nitroglycerin 0.4 mg Q5MINP PRN SL 07/21/24 12:30 Morphine Sulfate 2 mg Q30M PRN IV 07/21/24 12:30 Ceftriaxone Sodium 50 ml @ 100 mls/hr DAILY@09 IV 07/23/24 09:00 07/23/24 09:00 100 MLS/HR Guaifenesin 200 mg Q6HP PRN PO 07/22/24 10:45 07/22/24 16:31 200 MG Methylprednisolone Sodium Succinate 40 mg BID IV 07/22/24 22:00 07/23/24 10:00 40 MG Metronidazole 500 mg Q8HR PO 07/23/24 14:00 07/23/24 14:33 500 MG objective General: NAD, AAOX3 Chest: lung brar clear to auscultation on room air Heart: RRR, no murmur Abdomen: non-distended, no tenderness to palpation, +BS Extremities multiple areas of ecchymosis and bruising laboratory and microbiology Laboratory Tests 07/23/24 05:11 Test 07/23/24 05:11 Range/Units Serum Glucose 116 H 74-106 mg/dL Problems(with codes): (1) Generalized weakness (2) Metabolic encephalopathy (3) Acute respiratory failure (4) Nausea and vomiting (5) Syncope and collapse Prognosis Plan Increase methylprednisolone to 40 mg IV b.i.d. Mesalamine increase to 800 mg p.o. three times a day Monitor labs Full liquid diet advance to soft mechanical We will continue to monitor the patient Dietary Evaluation Review Recommendations by RD: Increase Calorie Intake Comments: 1. On Clear Liquid diet; advance to GI Soft diet as medically able 2. Add oral supplements of Ensure Clear TID (provides 240 kcal, 8 gm pro per carton) 3. Pt not to go >5 days on CL diet only (Currently Day 3); recommend nutrition support meausres if unable to advance diet 4. Monitor/treat diarrhea and other sx r/t UC flare Expected Outcomes/Goals: Weight maintenance, improved GI sx, improved energy intake. Food and Nutrition Intake (Sev: <50% est energy req 5days Interpretation of weight loss: >2% in 1 week Protein Calorie Malnutrition: Severe Is there a minimum of two crit: Yes Plan discussed with: Patient MAKAYLA LEBLANC MD Jul 23, 2024 22:27
[2024-07-24] VITALS (9 sets, daily range): BP systolic 147–168; BP diastolic 75–85; PULSE 71–92; RESP 16–22; TEMP 97.5–97.8; O2SAT 91–99
[2024-07-24 05:34] LABS: Basophils # (auto) 0 10 ^3/uL (0-0.2); Basophils % (auto) 0.1 % (0.0-2.0); Eosinophils # (auto) 0 10 ^3/uL (0-0.8); Hematocrit 35.7 % (36.0-46.0); Hemoglobin 11.9 g/dL (12.2-16.2); Lymphocytes # (auto) 0.2 10 ^3/uL (0.4-5.4); Lymphocytes % (auto) 2.8 % (10.0-50.0); Mean Corpuscular Hemoglobin 31.8 pg (28.0-32.0); Mean Corpuscular Hgb Conc. 33.4 g/dL (32.0-36.0); Mean Corpuscular Volume 95.2 fL (80.0-100.0); Monocytes # (auto) 0.7 10 ^3/uL (0-1.3); Monocytes % (auto) 11.8 % (0.0-12.0); Neutrophils # (auto) 4.8 10 ^3/uL (1.6-8.6); Neutrophils % (auto) 85.3 % (37.0-80.0); Nucleated Red Blood Cells % 0.1 %; Platelet Count (auto) 149 10^3/uL (140-450); Red Blood Cells 3.75 10^6/uL (4.0-5.20); Red Cell Distribution Width 14.4 % (11.8-14.3); White Blood Cell 5.6 10^3/uL (4.4-10.8)
[2024-07-24 05:57] LABS: Anion Gap 7 (5-15); Carbon Dioxide 28 mmol/L (20-31); Chloride 100 mmol/L (98-107)
[2024-07-24 06:03] LABS: BUN/Creatinine Ratio 28.3 (10.0-20.0); Blood Urea Nitrogen 15 mg/dL (9-23)
[2024-07-24 06:04] LABS: Magnesium 2.3 mg/dL (1.6-2.6)
[2024-07-24 06:15] LABS: Calcium 8.2 mg/dL (8.7-10.4); Glucose 112 mg/dL (74-106); Potassium 3.3 mmol/L (3.5-5.1); Sodium 135 mmol/L (136-145)
--- NOTE | 2024-07-24 09:48 | DVH ---
INDICATION: COVID 19 TECHNIQUE: Frontal view of the chest. COMPARISON: XY CHEST PORTABLE on DOS: 07/22/24, XY CHEST PORTABLE on DOS: 07/20/24, XY CHEST PORTABLE o n DOS: 07/16/24, XY CHEST PORTABLE on DOS: 07/14/24, XY CHEST PORTABLE on DOS: 07/22/24 FINDINGS: LUNGS AND PLEURAL SPACES: Pulmonary venous congestion. No consolidation. No pneumothorax. HEART: Unremarkable. No cardiomegaly. MEDIASTINUM: Unremarkable. Normal mediastinal contour. BONES/JOINTS: Unremarkable. No acute fracture. OTHER FINDINGS: . IMPRESSION: Pulmonary venous congestion.
--- NOTE | 2024-07-24 11:06 | DVHPN2 ---
Subjective The patient is seen and examined at bedside. Complain of being tired. Complain of shortness for breath. Still have diarrhea Reviewed: Care Plan, H&P, Labs, Medications, Previous Orders, Radiology Changes from previous H/P or p: No Changes Objective Vitals Vital Signs Date Time Temp Pulse Resp B/P (MAP) Pulse Ox O2 Delivery O2 Flow Rate FiO2 07/24/24 07:37 97.8 81 22 168/85 (112) 94 97.8 07/23/24 21:22 2.0 28 07/23/24 19:50 Nasal Cannula* Intake/Output Intake and Output 07/24/24 07:00 Intake Total 1000 ml Output Total 300 ml Balance 700 ml Intake Oral 1000 ml Output Urine Total 300 ml # Voids 6 # Bowel Movements 5 General Appearance: Alert, Oriented X3, Cooperative HEENT: Atraumatic, PERRLA, EOMI, Mucous membr. moist/pink Neck: Supple Lungs: Clear to auscultation, Normal air movement Cardiovascular: Regular rate, Normal S1, Normal S2, No murmurs, Gallops, Rubs Abdomen: Normal bowel sounds, Soft, No tenderness Neuro: Cranial nerves 3-12 NL Psych/Mental Status: Mental status NL Medications Current Medications Medications Dose Ordered Sig/Quinn Route Start Time Stop Time Status Last Admin Dose Admin Acetaminophen 650 mg Q6HP PRN PO 07/21/24 00:00 Acetaminophen/ Hydrocodone Bitart 1 tab Q4HP PRN PO 07/21/24 00:00 Atorvastatin Calcium 20 mg DAILY PO 07/21/24 10:00 07/24/24 10:19 20 MG Levothyroxine Sodium 88 mcg QAM PO 07/21/24 07:00 07/24/24 06:39 88 MCG Pantoprazole Sodium 40 mg DAILY PO 07/21/24 10:00 07/24/24 10:19 40 MG Ipratropium [place] 0.5 mg Q6HWA NEB 07/21/24 06:00 07/23/24 20:03 0.5 MG Levalbuterol HCl 0.625 mg Q6HR NEB 07/21/24 06:00 07/23/24 20:04 0.625 MG Mesalamine 800 mg TID PO 07/21/24 06:00 07/24/24 06:38 800 MG Remdesivir 100 mg/ Sodium Chloride 250 ml @ 250 mls/hr DAILY@1500 IV 07/22/24 15:00 07/23/24 15:59 Cancel Remdesivir 100 mg/ Sodium Chloride 250 ml @ 250 mls/hr DAILY@1500 IV 07/22/24 15:00 07/25/24 15:59 Cancel Nitroglycerin 0.4 mg Q5MINP PRN SL 07/21/24 12:30 Morphine Sulfate 2 mg Q30M PRN IV 07/21/24 12:30 Ceftriaxone Sodium 50 ml @ 100 mls/hr DAILY@09 IV 07/23/24 09:00 07/24/24 10:20 100 MLS/HR Guaifenesin 200 mg Q6HP PRN PO 07/22/24 10:45 07/24/24 02:34 200 MG Methylprednisolone Sodium Succinate 40 mg BID IV 07/22/24 22:00 07/24/24 10:19 40 MG Metronidazole 500 mg Q8HR PO 07/23/24 14:00 07/24/24 06:38 500 MG Laboratory Results Laboratory Tests 07/24/24 05:14 Chemistry Test 07/24/24 05:14 Calcium Level 8.2 mg/dL (8.7-10.4) L Magnesium Level 2.3 mg/dL (1.6-2.6) Urinalysis Test 07/20/24 21:23 Urine Color Light-yellow (Yellow) Urine Clarity Clear (Clear) Urine pH 5.5 (5.0-9.0) Urine Specific [place] 1.013 (1.001-1.035) Urine Protein Negative (Negative) Urine Ketones 3+ (Negative) H Urine Blood Trace /uL (Negative) H Urine Nitrite Negative (Negative) Urine Bilirubin Negative (Negative) Urine Urobilinogen Normal mg/dL (Negative) Urine Leukocyte Esterase Negative /uL (Negative) Urine RBC 1 /hpf (0 - 4) Urine Microscopic WBC < 1 /HPF (0-5) Urine Squamous Epithelial Cells None seen /hpf (<5) Urine Bacteria None seen /hpf (None Seen) Urine Glucose Normal mg/dL (Normal) Microbiology Microbiology Date/Time Source Procedure Growth Status 07/22/24 12:25 Sputum Gram Stain - Final Resulted 07/22/24 12:25 Sputum Respiratory Culture - Preliminary Resulted 07/22/24 12:25 Stool Stool Culture - Final Complete 07/22/24 12:25 Stool Shiga Toxin I & II - Final Complete 07/22/24 12:25 Stool Clostridium difficile Toxin Assay - Final Complete 07/21/24 17:50 Nose MRSA Screen - Final Complete 07/20/24 21:37 Blood Blood Culture - Preliminary NO GROWTH AFTER 72 HOURS OF INCUBATION. Resulted 07/20/24 21:23 Voided Urine Urine Culture - Final Complete Labs and/or images reviewed: Labs reviewed by me Assessment/Plan Assessment/Plan #1 acute resp failure #2 covid 19 pneumonia ? sepsis #3 gi bleed #4 hypothyroidism #5 left knee bruise/trauma #6 nstemi ?type 2 #8 RA #9 Ulcerative colitis ?flare up #10 old cva: carotid doppler #11 obesity #12 ? acute diastolic heart failure Continuing current management. Continuing with oxygen. Continuing with IV antibiotic. Continuing with steroids for ulcer colitis flare up. Continuing with IV Lasix. Continuing with Questran This medical document was created using an electronic medical record system with [employer] direct computerized dictation system. Although this document has been carefully reviewed, there may still be some phonetic and typographical errors. These areas are purely typographical due to imperfections of the software programs, and do not reflect any compromise in the patient's medical care. Plan discussed with: Patient Date of Service: Jul 24, 2024 Billing Provider: PATTI BAH MD Common Visit Codes: [id number] INP/OBS CARE(HIGH) PATTI BAH MD Jul 24, 2024 11:06
--- NOTE | 2024-07-24 22:44 | DVHPN2 ---
Progress Note - Dictate Date Seen: Jul 24, 2024 Medical Necessity Reason Pt with a Central, PICC or Fol: No Subjective No new complaints ; out of bed Patient feels slightly better Two bowel movements recorded still loose and brown vital signs Vital Sign Date Time Temp Pulse Resp B/P (MAP) Pulse Ox O2 Delivery O2 Flow Rate FiO2 07/24/24 21:00 97.8 74 18 159/75 (103) 94 97.8 07/24/24 19:05 Room Air* 0 21 Total Intake and Output 07/23/24 07/23/24 07/24/24 15:00 23:00 07:00 Intake Total 500 ml 500 ml Output Total 300 ml Balance 200 ml 500 ml medications Current Medications Medications Dose Ordered Sig/Quinn Route Start Time Stop Time Status Last Admin Dose Admin Acetaminophen 650 mg Q6HP PRN PO 07/21/24 00:00 Acetaminophen/ Hydrocodone Bitart 1 tab Q4HP PRN PO 07/21/24 00:00 Atorvastatin Calcium 20 mg DAILY PO 07/21/24 10:00 07/24/24 10:19 20 MG Levothyroxine Sodium 88 mcg QAM PO 07/21/24 07:00 07/24/24 06:39 88 MCG Pantoprazole Sodium 40 mg DAILY PO 07/21/24 10:00 07/24/24 10:19 40 MG Ipratropium [place] 0.5 mg Q6HWA NEB 07/21/24 06:00 07/23/24 20:03 0.5 MG Levalbuterol HCl 0.625 mg Q6HR NEB 07/21/24 06:00 07/23/24 20:04 0.625 MG Mesalamine 800 mg TID PO 07/21/24 06:00 07/24/24 15:23 800 MG Remdesivir 100 mg/ Sodium Chloride 250 ml @ 250 mls/hr DAILY@1500 IV 07/22/24 15:00 07/23/24 15:59 Cancel Remdesivir 100 mg/ Sodium Chloride 250 ml @ 250 mls/hr DAILY@1500 IV 07/22/24 15:00 07/25/24 15:59 Cancel Nitroglycerin 0.4 mg Q5MINP PRN SL 07/21/24 12:30 Morphine Sulfate 2 mg Q30M PRN IV 07/21/24 12:30 Ceftriaxone Sodium 50 ml @ 100 mls/hr DAILY@09 IV 07/23/24 09:00 07/24/24 10:20 100 MLS/HR Guaifenesin 200 mg Q6HP PRN PO 07/22/24 10:45 07/24/24 02:34 200 MG Methylprednisolone Sodium Succinate 40 mg BID IV 07/22/24 22:00 07/24/24 10:19 40 MG Metronidazole 500 mg Q8HR PO 07/23/24 14:00 07/24/24 15:23 500 MG Cholestyramine Resin 4 gm BID@1100,2300 GT 07/24/24 23:00 Ondansetron HCl 4 mg Q6HPRN PRN IV 07/24/24 22:15 objective General: NAD, AAOX3 Chest: lung brar clear to auscultation on room air Heart: RRR, no murmur Abdomen: non-distended, no tenderness to palpation, +BS Extremities multiple areas of ecchymosis and bruising laboratory and microbiology Laboratory Tests 07/24/24 05:14 Test 07/24/24 05:14 Range/Units Serum Glucose 112 H 74-106 mg/dL Problems(with codes): (1) Diarrhea (2) Nausea and vomiting (3) Syncope and collapse (4) Generalized weakness (5) Metabolic encephalopathy (6) Acute respiratory failure (7) Bilateral knee pain Prognosis Plan Continue Protonix 40 mg IV daily Continue IV Solu-Medrol and mesalamine Add Questran 4 g packet p.o. twice a day I will follow up patient Dietary Evaluation Review Recommendations by RD: Increase Calorie Intake Comments: 1. On Clear Liquid diet; advance to GI Soft diet as medically able 2. Add oral supplements of Ensure Clear TID (provides 240 kcal, 8 gm pro per carton) 3. Pt not to go >5 days on CL diet only (Currently Day 3); recommend nutrition support meausres if unable to advance diet 4. Monitor/treat diarrhea and other sx r/t UC flare Expected Outcomes/Goals: Weight maintenance, improved GI sx, improved energy intake. Food and Nutrition Intake (Sev: <50% est energy req 5days Interpretation of weight loss: >2% in 1 week Protein Calorie Malnutrition: Severe Is there a minimum of two crit: Yes Plan discussed with: Patient, Other (Nurse Christopher) MAKAYLA LEBLANC MD Jul 24, 2024 22:44
[2024-07-24] MEDS: ONDANSETRON HCL 4 MG/2 ML VIAL IV PRN (22:53)
[2024-07-25] VITALS (14 sets, daily range): BP systolic 131–154; BP diastolic 67–79; PULSE 73–111; RESP 16–19; TEMP 97.3–98.5; O2SAT 92–100
[2024-07-25] MEDS: CHOLESTYRAMINE 4 GM POWDER GT SCH (01:06)
[2024-07-25] MEDS: CHOLESTYRAMINE 4 GM POWDER PO SCH (12:44)
[2024-07-25] MEDS: ATORVASTATIN 20 MG TAB PO SCH (21:59)
--- NOTE | 2024-07-25 23:03 | DVHPN2 ---
Subjective The patient is seen and examined at bedside. Complain of being tired. Complain of shortness for breath. Still have diarrhea Reviewed: Care Plan, H&P, Labs, Medications, Previous Orders, Radiology Changes from previous H/P or p: No Changes Objective Vitals Vital Signs Date Time Temp Pulse Resp B/P (MAP) Pulse Ox O2 Delivery O2 Flow Rate FiO2 07/25/24 21:00 97.3 100 18 140/72 (94) 93 97.3 07/25/24 18:12 Nasal Cannula 2.0 07/25/24 18:12 28 Intake/Output Intake and Output 07/25/24 07:00 Intake Total 900 ml Output Total 0 ml Balance 900 ml Intake Oral 900 ml Output Urine Total 0 ml # Voids 4 # Bowel Movements 3 General Appearance: Alert, Oriented X3, Cooperative HEENT: Atraumatic, PERRLA, EOMI, Mucous membr. moist/pink Neck: Supple Lungs: Clear to auscultation, Normal air movement Cardiovascular: Regular rate, Normal S1, Normal S2, No murmurs, Gallops, Rubs Abdomen: Normal bowel sounds, Soft, No tenderness Neuro: Cranial nerves 3-12 NL Psych/Mental Status: Mental status NL Medications Current Medications Medications Dose Ordered Sig/Quinn Route Start Time Stop Time Status Last Admin Dose Admin Acetaminophen 650 mg Q6HP PRN PO 07/21/24 00:00 Acetaminophen/ Hydrocodone Bitart 1 tab Q4HP PRN PO 07/21/24 00:00 Levothyroxine Sodium 88 mcg QAM PO 07/21/24 07:00 07/25/24 06:17 88 MCG Pantoprazole Sodium 40 mg DAILY PO 07/21/24 10:00 07/25/24 09:45 40 MG Ipratropium [place] 0.5 mg Q6HWA NEB 07/21/24 06:00 07/25/24 18:12 0.5 MG Levalbuterol HCl 0.625 mg Q6HR NEB 07/21/24 06:00 07/25/24 18:12 0.625 MG Mesalamine 800 mg TID PO 07/21/24 06:00 07/25/24 21:59 800 MG Remdesivir 100 mg/ Sodium Chloride 250 ml @ 250 mls/hr DAILY@1500 IV 07/22/24 15:00 07/23/24 15:59 Cancel Remdesivir 100 mg/ Sodium Chloride 250 ml @ 250 mls/hr DAILY@1500 IV 07/22/24 15:00 07/25/24 15:59 Cancel Nitroglycerin 0.4 mg Q5MINP PRN SL 07/21/24 12:30 Morphine Sulfate 2 mg Q30M PRN IV 07/21/24 12:30 Ceftriaxone Sodium 50 ml @ 100 mls/hr DAILY@09 IV 07/23/24 09:00 07/25/24 09:41 100 MLS/HR Guaifenesin 200 mg Q6HP PRN PO 07/22/24 10:45 07/25/24 17:54 200 MG Methylprednisolone Sodium Succinate 40 mg BID IV 07/22/24 22:00 07/25/24 21:58 40 MG Metronidazole 500 mg Q8HR PO 07/23/24 14:00 07/24/24 15:23 500 MG Ondansetron HCl 4 mg Q6HPRN PRN IV 07/24/24 22:15 07/24/24 22:53 4 MG Cholestyramine Resin 4 gm BID@1100,2300 PO 07/25/24 11:00 07/25/24 22:00 4 GM Atorvastatin Calcium 20 mg HS PO 07/25/24 22:00 07/25/24 21:59 20 MG Laboratory Results Laboratory Tests 07/24/24 05:14 Urinalysis Test 07/20/24 21:23 Urine Color Light-yellow (Yellow) Urine Clarity Clear (Clear) Urine pH 5.5 (5.0-9.0) Urine Specific [place] 1.013 (1.001-1.035) Urine Protein Negative (Negative) Urine Ketones 3+ (Negative) H Urine Blood Trace /uL (Negative) H Urine Nitrite Negative (Negative) Urine Bilirubin Negative (Negative) Urine Urobilinogen Normal mg/dL (Negative) Urine Leukocyte Esterase Negative /uL (Negative) Urine RBC 1 /hpf (0 - 4) Urine Microscopic WBC < 1 /HPF (0-5) Urine Squamous Epithelial Cells None seen /hpf (<5) Urine Bacteria None seen /hpf (None Seen) Urine Glucose Normal mg/dL (Normal) Microbiology Microbiology Date/Time Source Procedure Growth Status 07/22/24 12:25 Sputum Gram Stain - Final Complete 07/22/24 12:25 Sputum Respiratory Culture - Final Complete 07/22/24 12:25 Stool Stool Culture - Final Complete 07/22/24 12:25 Stool Shiga Toxin I & II - Final Complete 07/22/24 12:25 Stool Clostridium difficile Toxin Assay - Final Complete 07/21/24 17:50 Nose MRSA Screen - Final Complete 07/20/24 21:37 Blood Blood Culture - Final NO GROWTH AFTER 5 DAYS OF INCUBATION. Complete 07/20/24 21:23 Voided Urine Urine Culture - Final Complete Labs and/or images reviewed: Labs reviewed by me Assessment/Plan Assessment/Plan #1 acute resp failure #2 covid 19 pneumonia ? sepsis #3 gi bleed #4 hypothyroidism #5 left knee bruise/trauma #6 nstemi ?type 2 #8 RA #9 Ulcerative colitis ?flare up #10 old cva: carotid doppler #11 obesity #12 ? acute diastolic heart failure Continuing current management. Continuing with oxygen. Continuing with IV antibiotic. Continuing with steroids for ulcer colitis flare up. Continuing with IV Lasix. Continuing with Questran This medical document was created using an electronic medical record system with [employer] direct computerized dictation system. Although this document has been carefully reviewed, there may still be some phonetic and typographical errors. These areas are purely typographical due to imperfections of the software programs, and do not reflect any compromise in the patient's medical care. Plan discussed with: Patient My Orders Orders - PATTI BAH MD Procedure Category Date Status Time * Wound Consult CONS 07/25/24 Transmitted Cover Wound With Foam CECI 07/25/24 In Process Dressing 14:35 Date of Service: Jul 25, 2024 Billing Provider: PATTI BAH MD Common Visit Codes: [id number] INP/OBS CARE(HIGH) PATTI BAH MD Jul 25, 2024 23:03
--- NOTE | 2024-07-25 23:08 | DVHPN2 ---
Progress Note - Dictate Date Seen: Jul 25, 2024 Medical Necessity Reason Pt with a Central, PICC or Fol: No Subjective No new complaints ; out of bed Patient feels slightly better 2-3 bowel movements recorded still loose and brown vital signs Vital Sign Date Time Temp Pulse Resp B/P (MAP) Pulse Ox O2 Delivery O2 Flow Rate FiO2 07/25/24 21:00 97.3 100 18 140/72 (94) 93 97.3 07/25/24 18:12 Nasal Cannula 2.0 07/25/24 18:12 28 Total Intake and Output 07/24/24 07/24/24 07/25/24 15:00 23:00 07:00 Intake Total 0 ml 900 ml Output Total 0 ml Balance 0 ml 900 ml medications Current Medications Medications Dose Ordered Sig/Quinn Route Start Time Stop Time Status Last Admin Dose Admin Acetaminophen 650 mg Q6HP PRN PO 07/21/24 00:00 Acetaminophen/ Hydrocodone Bitart 1 tab Q4HP PRN PO 07/21/24 00:00 Levothyroxine Sodium 88 mcg QAM PO 07/21/24 07:00 07/25/24 06:17 88 MCG Pantoprazole Sodium 40 mg DAILY PO 07/21/24 10:00 07/25/24 09:45 40 MG Ipratropium [place] 0.5 mg Q6HWA NEB 07/21/24 06:00 07/25/24 18:12 0.5 MG Levalbuterol HCl 0.625 mg Q6HR NEB 07/21/24 06:00 07/25/24 18:12 0.625 MG Mesalamine 800 mg TID PO 07/21/24 06:00 07/25/24 21:59 800 MG Remdesivir 100 mg/ Sodium Chloride 250 ml @ 250 mls/hr DAILY@1500 IV 07/22/24 15:00 07/23/24 15:59 Cancel Remdesivir 100 mg/ Sodium Chloride 250 ml @ 250 mls/hr DAILY@1500 IV 07/22/24 15:00 07/25/24 15:59 Cancel Nitroglycerin 0.4 mg Q5MINP PRN SL 07/21/24 12:30 Morphine Sulfate 2 mg Q30M PRN IV 07/21/24 12:30 Ceftriaxone Sodium 50 ml @ 100 mls/hr DAILY@09 IV 07/23/24 09:00 07/25/24 09:41 100 MLS/HR Guaifenesin 200 mg Q6HP PRN PO 07/22/24 10:45 07/25/24 17:54 200 MG Methylprednisolone Sodium Succinate 40 mg BID IV 07/22/24 22:00 07/25/24 21:58 40 MG Metronidazole 500 mg Q8HR PO 07/23/24 14:00 07/24/24 15:23 500 MG Ondansetron HCl 4 mg Q6HPRN PRN IV 07/24/24 22:15 07/24/24 22:53 4 MG Cholestyramine Resin 4 gm BID@1100,2300 PO 07/25/24 11:00 07/25/24 22:00 4 GM Atorvastatin Calcium 20 mg HS PO 07/25/24 22:00 07/25/24 21:59 20 MG objective General: NAD, AAOX3 Chest: lung brar clear to auscultation on room air Heart: RRR, no murmur Abdomen: non-distended, no tenderness to palpation, +BS Extremities multiple areas of ecchymosis and bruising laboratory and microbiology Laboratory Tests 07/24/24 05:14 Test 07/24/24 05:14 Range/Units Serum Glucose 112 H 74-106 mg/dL Problems(with codes): (1) Diarrhea (2) Nausea and vomiting (3) Syncope and collapse (4) Generalized weakness (5) Metabolic encephalopathy (6) Acute respiratory failure (7) Elevated troponin (8) Near syncope Prognosis Plan Continue Protonix 40 mg IV daily Continue IV Solu-Medrol and mesalamine Add Questran 4 g packet p.o. twice a day I will follow up patient Dietary Evaluation Review Recommendations by RD: Increase Calorie Intake Comments: 1. On Clear Liquid diet; advance to GI Soft diet as medically able 2. Add oral supplements of Ensure Clear TID (provides 240 kcal, 8 gm pro per carton) 3. Pt not to go >5 days on CL diet only (Currently Day 3); recommend nutrition support meausres if unable to advance diet 4. Monitor/treat diarrhea and other sx r/t UC flare Expected Outcomes/Goals: Weight maintenance, improved GI sx, improved energy intake. Food and Nutrition Intake (Sev: <50% est energy req 5days Interpretation of weight loss: >2% in 1 week Protein Calorie Malnutrition: Severe Is there a minimum of two crit: Yes Plan discussed with: Patient MAKAYLA LEBLANC MD Jul 25, 2024 23:08
[2024-07-26] VITALS (13 sets, daily range): BP systolic 131–157; BP diastolic 66–87; PULSE 70–111; RESP 16–20; TEMP 97.3–97.9; O2SAT 92–100
--- NOTE | 2024-07-26 21:28 | DVHPN2 ---
Progress Note - Dictate Date Seen: Jul 26, 2024 Medical Necessity Reason Pt with a Central, PICC or Fol: No Subjective No new complaints Patient feels slightly better 2-3 bowel movements recorded still loose and brown Soila has helped to control her diarrhea vital signs Vital Sign Date Time Temp Pulse Resp B/P (MAP) Pulse Ox O2 Delivery O2 Flow Rate FiO2 07/26/24 20:00 Nasal Cannula* 1 24 07/26/24 18:24 77 20 99 07/26/24 17:00 97.6 132/70 (90) 97.6 Total Intake and Output 07/25/24 07/25/24 07/26/24 14:59 22:59 06:59 Intake Total 50 ml 400 ml 240 ml Output Total 1250 ml Balance 50 ml 400 ml -1010 ml medications Current Medications Medications Dose Ordered Sig/Quinn Route Start Time Stop Time Status Last Admin Dose Admin Acetaminophen 650 mg Q6HP PRN PO 07/21/24 00:00 Acetaminophen/ Hydrocodone Bitart 1 tab Q4HP PRN PO 07/21/24 00:00 Levothyroxine Sodium 88 mcg QAM PO 07/21/24 07:00 07/26/24 06:20 88 MCG Pantoprazole Sodium 40 mg DAILY PO 07/21/24 10:00 07/26/24 11:03 40 MG Ipratropium [place] 0.5 mg Q6HWA NEB 07/21/24 06:00 07/26/24 18:16 0.5 MG Levalbuterol HCl 0.625 mg Q6HR NEB 07/21/24 06:00 07/26/24 18:16 0.625 MG Mesalamine 800 mg TID PO 07/21/24 06:00 07/26/24 15:01 800 MG Remdesivir 100 mg/ Sodium Chloride 250 ml @ 250 mls/hr DAILY@1500 IV 07/22/24 15:00 07/23/24 15:59 Cancel Remdesivir 100 mg/ Sodium Chloride 250 ml @ 250 mls/hr DAILY@1500 IV 07/22/24 15:00 07/25/24 15:59 Cancel Nitroglycerin 0.4 mg Q5MINP PRN SL 07/21/24 12:30 Morphine Sulfate 2 mg Q30M PRN IV 07/21/24 12:30 Ceftriaxone Sodium 50 ml @ 100 mls/hr DAILY@09 IV 07/23/24 09:00 07/26/24 09:00 100 MLS/HR Guaifenesin 200 mg Q6HP PRN PO 07/22/24 10:45 07/25/24 17:54 200 MG Methylprednisolone Sodium Succinate 40 mg BID IV 07/22/24 22:00 07/26/24 11:03 40 MG Metronidazole 500 mg Q8HR PO 07/23/24 14:00 07/24/24 15:23 500 MG Ondansetron HCl 4 mg Q6HPRN PRN IV 07/24/24 22:15 07/24/24 22:53 4 MG Cholestyramine Resin 4 gm BID@1100,2300 PO 07/25/24 11:00 07/26/24 11:56 4 GM Atorvastatin Calcium 20 mg HS PO 07/25/24 22:00 07/25/24 21:59 20 MG objective General: NAD, AAOX3 Chest: lung brar clear to auscultation on room air Heart: RRR, no murmur Abdomen: non-distended, no tenderness to palpation, +BS Extremities multiple areas of ecchymosis and bruising laboratory and microbiology Laboratory Tests 07/24/24 05:14 Test 07/24/24 05:14 Range/Units Serum Glucose 112 H 74-106 mg/dL Problems(with codes): (1) COVID-19 (2) Near syncope (3) Elevated troponin (4) Bilateral knee pain (5) Diarrhea (6) Nausea and vomiting (7) Generalized weakness Prognosis Plan Continue supportive care Continue Questran Continue Florastor Patient is stable for discharge from GI point of view We are going to decrease her oxygen to 1 L to see if her saturations are stable Dietary Evaluation Review Recommendations by RD: Increase Calorie Intake Comments: 1) Continue with Questran @ 4g bid. When patient discharges, consider slowly incorporating soluble fiber supplement such as Metamucil @ 1 Tbsp or Benefiber @ 2 tsp (can be taken up to 3 times daily). 2) Oral nutrition supplement such as Ensure or Glucerna is NOT appropriate d/t polyols and risk for exercerbation of diarrhea 3) Consider fish oil and/or glutamine supplementation to reduce inflammation 4) Collect HbA1c d/t elevated glucose of 148 mg/dL 5) Encourage optimal PO intake. If PO intake < 50% and weight loss continues, consider EN/TPN to support increased energy and protein needs 5) Continue to monitor I&O, labs, and skin integrity Expected Outcomes/Goals: 1) appetite and labs to imrpove 2) GI symptoms to resolve 3) wound to improve 4) f/u in 2-3 days Food and Nutrition Intake (Sev: <50% est energy req 5days Interpretation of weight loss: >2% in 1 week Protein Calorie Malnutrition: Severe Is there a minimum of two crit: Yes Plan discussed with: Patient, Other (Nurse) MAKAYLA LEBLANC MD Jul 26, 2024 21:28
--- NOTE | 2024-07-26 22:32 | DVHPN2 ---
Subjective The patient is seen and examined at bedside. Complain of being tired. Complain of shortness for breath. Diarrhea improved Reviewed: Care Plan, H&P, Labs, Medications, Previous Orders, Radiology Changes from previous H/P or p: No Changes Objective Vitals Vital Signs Date Time Temp Pulse Resp B/P (MAP) Pulse Ox O2 Delivery O2 Flow Rate FiO2 07/26/24 20:00 Nasal Cannula* 1 24 07/26/24 18:24 77 20 99 07/26/24 17:00 97.6 132/70 (90) 97.6 Intake/Output Intake and Output 07/26/24 07:00 Intake Total 690 ml Output Total 1250 ml Balance -560 ml Intake Oral 640 ml IV Total 50 ml Output Urine Total 1250 ml # Voids 2 # Bowel Movements 3 General Appearance: Alert, Oriented X3, Cooperative HEENT: Atraumatic, PERRLA, EOMI, Mucous membr. moist/pink Neck: Supple Lungs: Clear to auscultation, Normal air movement Cardiovascular: Regular rate, Normal S1, Normal S2, No murmurs, Gallops, Rubs Abdomen: Normal bowel sounds, Soft, No tenderness Neuro: Cranial nerves 3-12 NL Psych/Mental Status: Mental status NL Medications Current Medications Medications Dose Ordered Sig/Quinn Route Start Time Stop Time Status Last Admin Dose Admin Acetaminophen 650 mg Q6HP PRN PO 07/21/24 00:00 Acetaminophen/ Hydrocodone Bitart 1 tab Q4HP PRN PO 07/21/24 00:00 Levothyroxine Sodium 88 mcg QAM PO 07/21/24 07:00 07/26/24 06:20 88 MCG Pantoprazole Sodium 40 mg DAILY PO 07/21/24 10:00 07/26/24 11:03 40 MG Ipratropium [place] 0.5 mg Q6HWA NEB 07/21/24 06:00 07/26/24 18:16 0.5 MG Levalbuterol HCl 0.625 mg Q6HR NEB 07/21/24 06:00 07/26/24 18:16 0.625 MG Mesalamine 800 mg TID PO 07/21/24 06:00 07/26/24 22:00 800 MG Remdesivir 100 mg/ Sodium Chloride 250 ml @ 250 mls/hr DAILY@1500 IV 07/22/24 15:00 07/23/24 15:59 Cancel Remdesivir 100 mg/ Sodium Chloride 250 ml @ 250 mls/hr DAILY@1500 IV 07/22/24 15:00 07/25/24 15:59 Cancel Nitroglycerin 0.4 mg Q5MINP PRN SL 07/21/24 12:30 Morphine Sulfate 2 mg Q30M PRN IV 07/21/24 12:30 Ceftriaxone Sodium 50 ml @ 100 mls/hr DAILY@09 IV 07/23/24 09:00 07/26/24 09:00 100 MLS/HR Guaifenesin 200 mg Q6HP PRN PO 07/22/24 10:45 07/25/24 17:54 200 MG Methylprednisolone Sodium Succinate 40 mg BID IV 07/22/24 22:00 07/26/24 22:00 40 MG Metronidazole 500 mg Q8HR PO 07/23/24 14:00 07/24/24 15:23 500 MG Ondansetron HCl 4 mg Q6HPRN PRN IV 07/24/24 22:15 07/24/24 22:53 4 MG Cholestyramine Resin 4 gm BID@1100,2300 PO 07/25/24 11:00 07/26/24 22:00 4 GM Atorvastatin Calcium 20 mg HS PO 07/25/24 22:00 07/26/24 22:00 20 MG Laboratory Results Laboratory Tests 07/24/24 05:14 Urinalysis Test 07/20/24 21:23 Urine Color Light-yellow (Yellow) Urine Clarity Clear (Clear) Urine pH 5.5 (5.0-9.0) Urine Specific [place] 1.013 (1.001-1.035) Urine Protein Negative (Negative) Urine Ketones 3+ (Negative) H Urine Blood Trace /uL (Negative) H Urine Nitrite Negative (Negative) Urine Bilirubin Negative (Negative) Urine Urobilinogen Normal mg/dL (Negative) Urine Leukocyte Esterase Negative /uL (Negative) Urine RBC 1 /hpf (0 - 4) Urine Microscopic WBC < 1 /HPF (0-5) Urine Squamous Epithelial Cells None seen /hpf (<5) Urine Bacteria None seen /hpf (None Seen) Urine Glucose Normal mg/dL (Normal) Microbiology Microbiology Date/Time Source Procedure Growth Status 07/22/24 12:25 Sputum Gram Stain - Final Complete 07/22/24 12:25 Sputum Respiratory Culture - Final Complete 07/22/24 12:25 Stool Stool Culture - Final Complete 07/22/24 12:25 Stool Shiga Toxin I & II - Final Complete 07/22/24 12:25 Stool Clostridium difficile Toxin Assay - Final Complete 07/21/24 17:50 Nose MRSA Screen - Final Complete 07/20/24 21:37 Blood Blood Culture - Final NO GROWTH AFTER 5 DAYS OF INCUBATION. Complete 07/20/24 21:23 Voided Urine Urine Culture - Final Complete Labs and/or images reviewed: Labs reviewed by me Assessment/Plan Assessment/Plan #1 acute resp failure #2 covid 19 pneumonia ? sepsis #3 gi bleed #4 hypothyroidism #5 left knee bruise/trauma #6 nstemi ?type 2 #8 RA #9 Ulcerative colitis ?flare up #10 old cva: carotid doppler #11 obesity #12 ? acute diastolic heart failure Continuing current management. Continuing with oxygen. Continuing with IV antibiotic. Continuing with steroids for ulcer colitis flare up. Continuing with IV Lasix. Continuing with Questran for diarrhea Encouraged the patient to be out of bed and ambulate Discharge planning This medical document was created using an electronic medical record system with [employer] direct computerized dictation system. Although this document has been carefully reviewed, there may still be some phonetic and typographical errors. These areas are purely typographical due to imperfections of the software programs, and do not reflect any compromise in the patient's medical care. Plan discussed with: Patient Date of Service: Jul 26, 2024 Billing Provider: PATTI BAH MD Common Visit Codes: [id number] INP/OBS CARE(HIGH) PATTI BAH MD Jul 26, 2024 22:32
[2024-07-27] VITALS (11 sets, daily range): BP systolic 135–160; BP diastolic 68–78; PULSE 75–130; RESP 18–20; TEMP 97.2–97.6; O2SAT 91–100
[2024-07-27 05:51] LABS: Basophils # (auto) 0 10 ^3/uL (0-0.2); Basophils % (auto) 0.1 % (0.0-2.0); Eosinophils # (auto) 0 10 ^3/uL (0-0.8); Hematocrit 32.4 % (36.0-46.0); Hemoglobin 11.2 g/dL (12.2-16.2); Lymphocytes # (auto) 0.3 10 ^3/uL (0.4-5.4); Mean Corpuscular Hemoglobin 32.8 pg (28.0-32.0); Mean Corpuscular Hgb Conc. 34.5 g/dL (32.0-36.0); Mean Corpuscular Volume 95.1 fL (80.0-100.0); Monocytes # (auto) 0.6 10 ^3/uL (0-1.3); Monocytes % (auto) 6.6 % (0.0-12.0); Neutrophils # (auto) 7.9 10 ^3/uL (1.6-8.6); Neutrophils % (auto) 90.3 % (37.0-80.0); Nucleated Red Blood Cells % 0.2 %; Platelet Count (auto) 145 10^3/uL (140-450); Red Blood Cells 3.41 10^6/uL (4.0-5.20); Red Cell Distribution Width 13.8 % (11.8-14.3); White Blood Cell 8.7 10^3/uL (4.4-10.8)
[2024-07-27] MEDS: hydrALAZINE HCL 20 MG/ML VL IV PRN (06:06)
[2024-07-27 06:12] LABS: Alanine Aminotransferase 30 U/L (7-40); Anion Gap 6 (5-15); Blood Urea Nitrogen 13 mg/dL (9-23); Carbon Dioxide 27 mmol/L (20-31); Chloride 103 mmol/L (98-107)
[2024-07-27 06:13] LABS: Aspartate Aminotransferase 25 U/L (13-40)
[2024-07-27 06:14] LABS: Bilirubin, Total 0.8 mg/dL (0.2-1.0)
[2024-07-27 06:16] LABS: Albumin 2.9 g/dL (3.2-4.8); Alkaline Phosphatase 39 U/L (46-116); Calcium 8.4 mg/dL (8.7-10.4); Glucose 117 mg/dL (74-106); Potassium 3.3 mmol/L (3.5-5.1); Sodium 136 mmol/L (136-145); Total Protein 4.8 g/dL (5.7-8.2)
[2024-07-27] MEDS: POTASSIUM CHL 20 Meq TABLET PO ONE (11:15)
[2024-07-27] MEDS ORDERED: PRED20TA2 PO (11:46)
[2024-07-27] MEDS ORDERED: PRED10TA PO (11:46)
[2024-07-27] MEDS ORDERED: CHOLPOW4 PO (11:46)
[2024-07-27] MEDS ORDERED: MESA800T9 PO (11:46)
--- NOTE | 2024-07-27 11:50 | DVHDS2 ---
Discharge Summary Date of Admission Jul 20, 2024 at 23:56 Date of Discharge: Jul 27, 2024 Labs/Diagnostic Data: Laboratory Results Test 07/27/24 05:30 07/24/24 05:14 07/22/24 12:25 07/22/24 11:05 White Blood Count 8.7 10^3/uL (4.4-10.8) Red Blood Count 3.41 10^6/uL (4.0-5.20) Hemoglobin 11.2 g/dL (12.2-16.2) Hematocrit 32.4 % (36.0-46.0) Mean Corpuscular Volume 95.1 fL (80.0-100.0) Mean Corpuscular Hemoglobin 32.8 pg (28.0-32.0) Mean Corpuscular Hemoglobin Concent 34.5 g/dL (32.0-36.0) Red Cell Distribution Width 13.8 % (11.8-14.3) Platelet Count 145 10^3/uL (140-450) Mean Platelet Volume 9.0 fL (6.9-10.8) Neutrophils (%) (Auto) 90.3 % (37.0-80.0) Lymphocytes (%) (Auto) 3.0 % (10.0-50.0) Monocytes (%) (Auto) 6.6 % (0.0-12.0) Eosinophils (%) (Auto) 0.0 % (0.0-7.0) Basophils (%) (Auto) 0.1 % (0.0-2.0) Neutrophils # (Auto) 7.9 10 ^3/uL (1.6-8.6) Lymphocytes # (Auto) 0.3 10 ^3/uL (0.4-5.4) Monocytes # (Auto) 0.6 10 ^3/uL (0-1.3) Eosinophils # (Auto) 0 10 ^3/uL (0-0.8) Basophils # (Auto) 0 10 ^3/uL (0-0.2) Nucleated Red Blood Cells 0.2 % Sodium Level 136 mmol/L (136-145) Potassium Level 3.3 mmol/L (3.5-5.1) Chloride Level 103 mmol/L (98-107) Carbon Dioxide Level 27 mmol/L (20-31) Anion Gap 6 (5-15) Blood Urea Nitrogen 13 mg/dL (9-23) Creatinine 0.59 mg/dL (0.550-1.02) Glomerular Filtration Rate Calc 95 mL/min (>90) BUN/Creatinine Ratio 22.0 (10.0-20.0) Serum Glucose 117 mg/dL (74-106) Calcium Level 8.4 mg/dL (8.7-10.4) Total Bilirubin 0.8 mg/dL (0.2-1.0) Aspartate Amino Transferase (AST) 25 U/L (13-40) Alanine Aminotransferase (ALT) 30 U/L (7-40) Alkaline Phosphatase 39 U/L (46-116) Total Protein 4.8 g/dL (5.7-8.2) Albumin 2.9 g/dL (3.2-4.8) Magnesium Level 2.3 mg/dL (1.6-2.6) Stool for White Cells None seen Vancomycin Level Trough 6.5 ug/mL (5-10) Test 07/21/24 21:55 07/21/24 05:45 07/21/24 00:45 07/20/24 23:14 Urine Opiates Screen Neg (NEGATIVE) Urine Fentanyl Screen Neg (NEGATIVE) Urine Barbiturates Screen Neg (NEGATIVE) Urine Phencyclidine Screen Neg (NEGATIVE) Urine Amphetamines Screen Neg (NEGATIVE) Urine Benzodiazepines Screen Neg (NEGATIVE) Urine Cocaine Screen Neg (NEGATIVE) Urine Cannabinoids Screen Neg (NEGATIVE) Prothrombin Time 11.4 sec (9.3-11.8) Prothrombin Time INR 1.08 (0.9-1.15) Activated Partial Thromboplast Time 23.6 SEC (24.5-34.5) Direct Bilirubin 0.3 mg/dL (<0.3) Troponin I High Sensitivity 46 ng/L (</=34) Lactic Acid Level 1.6 mmol/L (0.4-2.0) Test 07/20/24 21:56 07/20/24 21:37 07/20/24 21:33 07/20/24 21:23 Influenza Type A Antigen Negative (Negative) Influenza Type B Antigen Negative (Negative) SARS-CoV-2 Antigen (Rapid) Positive (NEGATIVE) D-Dimer, Quantitative 2.53 mg/L FEU (0.0-0.49) B-Type Natriuretic Peptide 104.51 pg/mL (0-100) Blood Gas Specimen Type Arterial Blood Gas Sample Site Right radial Blood Gas Patient Temperature 37.0 Arterial Blood Date Drawn [id number] Arterial Blood pH 7.459 (7.350-7.450) Arterial Blood Partial Pressure CO2 29.4 mmHg (32.0-45.0) Arterial Blood Partial Pressure O2 75.9 mmHg (83.0-108.0) Arterial Blood HCO3 20.4 mmol/L (21.0-28.0) Arterial Blood Oxygen Saturation 94.8 % (94.0-98.0) Arterial Blood Base Excess -2.3 mmol/L (-2.0-3.0) Arterial Blood Oxyhemoglobin 93.6 % (94.0-98.0) Arterial Blood Carboxyhemoglobin 1.2 % (0.5-1.5) Arterial Blood Methemoglobin 0.1 % (0.0-1.5) Mian Test Yes Blood Gas Total Hemoglobin 13.40 g/dL (12.0-16.0) Blood Gas Liter Flow 6.00 Blood Gas Modality Mask - simple Blood Gas Spontaneous Rate 24 FiO2 % 40.0 Urine Color Light-yellow (Yellow) Urine Clarity Clear (Clear) Urine pH 5.5 (5.0-9.0) Urine Specific [place] 1.013 (1.001-1.035) Urine Protein Negative (Negative) Urine Ketones 3+ (Negative) Urine Blood Trace /uL (Negative) Urine Nitrite Negative (Negative) Urine Bilirubin Negative (Negative) Urine Urobilinogen Normal mg/dL (Negative) Urine Leukocyte Esterase Negative /uL (Negative) Urine RBC 1 /hpf (0 - 4) Urine Microscopic WBC < 1 /HPF (0-5) Urine Squamous Epithelial Cells None seen /hpf (<5) Urine Bacteria None seen /hpf (None Seen) Urine Glucose Normal mg/dL (Normal) Other Laboratory Tests 07/27/24 05:30 Brief Hx & Hospital Course: see dictated note Condition at Discharge: Fair Final Diagnosis/Problems List ABD PAIN Discharge Disposition: Home Discharge Instruct/Medications Diet: Cardiac 2g Na,low cholest Activity: No Restrictions, As Tolerated Follow Up/Referral: FU WITH PCP/GI- DR Adrian LEBLANC IN 2 WKS Medications: RESUME HOME MEDS AVOID ENSURE/GLUCERNA PULSE OX ON ROOM AIR SCRIPT TO PHARMACY Discharge Statement: "Patient was advised to return to the ER or call 911 if any headaches, dizziness, shortness of breath, chest pain, abdominal pain, bleeding, fevers, or worsening of medical condition. Patient was counseled about treatment plan, medications, possible side effects, patientverbalized understanding. All questions were answered to the best of my ability. This discharge took greater then 30 minutes in planning, reviewing documentation, counseling the patient, and discussing with other team members." ASSESSMENT ASSESSMENT Assessment ABD PAIN Date of Service: Jul 27, 2024 Billing Provider: BETTY ROGER MD Common Visit Codes: [id number] DISCH DAY >30min BETTY ROGER MD Jul 27, 2024 11:50
--- NOTE | 2024-07-27 12:16 | DVHDS ---
DATE OF DISCHARGE: 07/27/2024 HISTORY OF PRESENT ILLNESS: The patient is a 74-year-old lady who was admitted with a history of altered mental status and shortness of breath and has history of recent COVID, ulcerative colitis, CVA, rheumatoid arthritis, dyslipidemia and hypertension. HOSPITAL COURSE: The patient had a chest x-ray that showed evidence of pulmonary venous congestion. A CT angiography was negative for pulmonary embolism. The patient had Doppler of lower extremities that was negative for DVT. The patient had bloody stools and was seen in GI consult by Dr. Soniya Bates. She was started on intravenous steroids along with mesalamine and cholestyramine. The patient's bowels have now improved. The patient now wishes to go home and will be discharged home to resume her home medications as well as to be on cholestyramine 4 grams daily, mesalamine 800 mg t.i.d. and prednisone 20 mg daily for 7 days, followed by 10 mg daily. She will follow up with Dr. Soniya Bates in 2 weeks and with her primary care in 2 weeks. FINAL DIAGNOSES: Therefore: * Acute respiratory failure. * COVID-19 pneumonia with questionable sepsis. * Gastrointestinal bleeding with ulcerative colitis. * Hypothyroidism. * Left knee bruise with trauma. * Non-ST elevation myocardial infarction, likely type 2. * Rheumatoid arthritis. * Old cerebrovascular accident. * Obesity. * Questionable acute diastolic heart failure. Time spent in discharge planning and review of plan with the patient and nursing and strategic planning consultant was [address] Mann/BALJINDER TID: [id number] RECEIPT: [id number]
[2024-07-27] MEDS: POTASSIUM EFFERVESENT TAB 25 MEQ PO ONE (13:28)
[2024-07-27] MEDS: FUROSEMIDE 20 MG/2 ML VIAL IV ONE (13:29)
[2024-07-27 15:05] LABS: COVID19 ANTIGEN SOFIA FIA NEGATIVE (NEGATIVE)
== END 2024-07-27 17:55 | disposition home or self-care (01) | DRG 871 ==
LOC: ER 20:42 → EDBD 20:42 → OVERFLOW 23:56 → TELE-EAST 07-21 17:32
PROVIDERS: ADMIT Internal Medicine; ATTEND Internal Medicine
PROC: 5A09357 Assistance with Respiratory Ventilation, Less than 24 Consecutive Hours, Continuous Positive Airway Pressure (ICD-10-PCS; 2024-07-20)
PROC: 05HC33Z Insertion of Infusion Device into Left Basilic Vein, Percutaneous Approach (ICD-10-PCS; principal; 2024-07-21)
PROC: B54NZZA Ultrasonography of Left Upper Extremity Veins, Guidance (ICD-10-PCS; 2024-07-21)
PROC: XW033E5 Introduction of Remdesivir Anti-infective into Peripheral Vein, Percutaneous Approach, New Technology Group 5 (ICD-10-PCS; 2024-07-21)
DX: A41.89 Other specified sepsis (principal); G93.41 Metabolic encephalopathy; I21.A1 Myocardial infarction type 2; U07.1 COVID-19; J96.01 Acute respiratory failure with hypoxia; J12.82 Pneumonia due to coronavirus disease 2019; J11.08 Influenza due to unidentified influenza virus with specified pneumonia; I50.31 Acute diastolic (congestive) heart failure; K51.911 Ulcerative colitis, unspecified with rectal bleeding; K92.2 Gastrointestinal hemorrhage, unspecified; Z68.23 Body mass index [BMI] 23.0-23.9, adult; M06.9 Rheumatoid arthritis, unspecified; E03.9 Hypothyroidism, unspecified; E78.5 Hyperlipidemia, unspecified; I11.0 Hypertensive heart disease with heart failure; S80.02XA Contusion of left knee, initial encounter; E66.9 Obesity, unspecified; Z88.6 Allergy status to analgesic agent; Z88.2 Allergy status to sulfonamides; Z88.8 Allergy status to other drugs, medicaments and biological substances; Z79.899 Other long term (current) drug therapy; Z86.73 Personal history of transient ischemic attack (TIA), and cerebral infarction without residual deficits; I25.2 Old myocardial infarction; X58.XXXA Exposure to other specified factors, initial encounter; Y93.89 Activity, other specified; Y92.89 Other specified places as the place of occurrence of the external cause; Y99.8 Other external cause status
CPT/HCPCS: 36415; 36600; 71045; 71275; 80048; 80053; 80076; 80202; 80307; 81001; 82805; 83605; 83735; 83880; 84484; 85025; 85048; 85379; 85610; 85730; 87040; 87045; 87070; 87081; 87086; 87205; 87426; 87427; 87493; 87804; 93005; 93970; 94640; 94660; 96365; 97110; 97116; 97163; 99291; G0378; J1100; J2003; J2185; J2405; J3480; J3490; J7060

== ENCOUNTER 2024-08-07 20:01 | Inpatient (IN) | payer MEDICARE, OTHER ==
[~2024-08-07] VITALS: Ht 160 cm; Wt 67.5 kg
[~2024-08-07 20:01] MED LIST changes: -ADAL20KI SC; +ADAL40KI2 SC; -ALPR0.254 PO; -CHOL500021 OR; +CHOLPOW4 PO; -DISO100C4 PO; -ESOM20CA PO; -HYD1TP TOP; +MESA800T9 PO; -PRE1T PO; +PRED10TA PO; +PRED20TA2 PO; -PREMARIN PO
--- NOTE | 2024-08-07 20:23 | ED.PDOC ---
SOB-HPI HPI Comments 74-year-old female came to emergency room via EMS for shortness of breath. Patient recently discharged here 11 days ago, was diagnosed with COVID-19 pneumonia. Patient discharge improved. However for the past few days the patient has been experiencing productive cough with shortness of breath with wheezing again. Was saturating 88 % on room air on scene. Was placed at 2 L/min added improved to 94% Chief Complaint: Shortness of Breath Time Seen by MD: 20:21 Primary Care Provider: NAA Ley notes: Rn Transport Notes Information Source: Patient, Emergency Med Personnel Mode of Arrival: EMS Severity: Moderate Timing: Days Duration: Since onset Context: With Light Exertion History of: CHF Prehospital treatment: Oxygen Modifying Factors: Nothing Associated Signs and Symptoms: Wheeze, Cough If cough with SOB: Productive Past Medical History PAST MEDICAL HISTORY: CHF, HTN, MD, UTI'S Past Medical History (Other): COVID-19 Surgical History: Cholecystectomy CLEARANCE CUTTER History: No Pertinent CLEARANCE CUTTER History Family History Family History: Reviewed,noncontributory to illness Social History Smoker: Non-Smoker Alcohol: Denies ETOH Use Drugs: Denies Drug Use Lives In: Home Constitutional: reports: weakness; denies: chills, diaphoresis, fatigue, fever, malaise, sweats, others EENTM: denies: blurred vision, double vision, ear bleeding, ear discharge, ear drainage, ear pain, ear ringing, eye pain, eye redness, hearing loss, mouth pain, mouth swelling, nasal discharge, nose bleeding, nose congestion, nose pain , photophobia, tearing, throat pain, throat swelling, voice changes, others Respiratory: reports: cough, SOB at rest, shortness of breath, SOB with excertion; denies: hemoptysis, orthopnea, stridor, wheezing, others Cardiovascular: denies: chest pain, dizzy spells, diaphoresis, Dyspnea on exertion, edema, irregular heart beat, left arm pain, lightheadedness, palpitations, PND, syncope, others Gastrointestinal: denies: abdomen distended, abdominal pain, blood streaked bowels, constipated, diarrhea, dysphagia, difficulty swallowing, hematemesis, melena, nausea, poor appetite, poor fluid intake, rectal bleeding, rectal pain, vomiting, others Genitourinary: denies: abnormal vagina bleeding, burning, dyspareunia, dysuria, flank pain, frequency, hematuria, incontinence, pain, , vagina discharge, urgency, others Neurological: denies: dizziness, fainting, headache, left sided numbness, left sided weakness, numbness, paresthesia, pre-existing deficit, right sided numbness, right sided weakness, seizure, speech problems, tingling, tremors, weakness, others Musculoskeletal: denies: back pain, gout, joint pain, joint swelling, muscle pain, muscle stiffness, neck pain, others Integumetry: denies: bruises, change in color, change in hair/nails, dryness, laceration, lesions, lumps, rash, wounds, others Hematologic/Lymphatic: denies: anemia, blood clots, easy bleeding, easy bruising, swollen glands, others Endocrine: denies: excessive hunger, excessive sweating, excessive thirst, excessive urination, flushing, intolerance to cold, intolerance to heat, unexplained weight gain, unexplained weight loss, others Psychiatric: denies: anxiety, bipolar disorder, depression, hopeless, panic disorder, schizophrenia, sleepless, suicidal, others Physical Exam General Appearance: No Apparent Distress, Normal HEENT: Normal ENT Inspection, Pharynx Normal, TMs Normal Neck: Full Range of Motion, Non-Tender, Normal, Normal Inspection Respiratory: Chest Non-Tender, No Accessory Muscle Use, Wheezing Cardiovascular: No Edema, No JVD, No Murmur, No Gallop, Normal Peripheral Pulses, Regular Rate/Rhythm Breast Exam: Deferred Gastrointestinal: No Organomegaly, Non Tender, No Pulsatile Mass, Normal Bowel Sounds, Soft Genitalia: Deferred Pelvic: Deferred Rectal: Deferred Extremities: No calf tenderness, Normal capillary refill, Normal inspection, Normal range of motion, Pedal edema (plus 2) Musculoskeletal : Apperance: Normal Neurologic: Alert, utility tender carding II-XII nml as Tested, No Motor Deficits, Normal Affect, Normal Mood, No Sensory Deficits Cerebellar Function: Normal Reflexes: Normal Skin: Dry, Normal Color, Warm Lymphatic: No Adenopathy EKG EKG : Pulse Rate (adult): 124 Cardiac Rhythm: ST Was a procedure done? Was a procedure done?: No Differential Dx Differential Diagnosis: Anxiety, Asthma, Bronchitis, Cardiogenic Shock, CHF, COPD, Myocardial infarction, Panic Attack, Pneumonia, Pneumothorax, Pulmonary Embolism, Respiratory Distress, URI X-Ray, Labs, Meds, VS Vital Signs Date Time Temp Pulse Resp B/P (MAP) Pulse Ox O2 Delivery O2 Flow Rate FiO2 08/07/24 20:53 123 16 95 Nasal Cannula* 2 28 08/07/24 20:52 98.5 123 16 154/69 (97) 95 98.5 08/07/24 20:51 127 08/07/24 20:47 124 08/07/24 20:14 124 08/07/24 20:01 98.2 120 18 123/61 (81) 100 98.2 Lab Test 08/07/24 21:40 08/07/24 21:01 08/07/24 20:42 Range/Units Troponin I High Sensitivity 42 *H 41 *H </=34 ng/L Blood Gas Specimen Type Venous Blood Gas Sample Site Left radial Blood Gas Patient Temperature 37.0 Arterial Blood Date Drawn [id number] Mian Test Yes Venous Blood pH 7.445 H 7.320-7.430 Venous Blood pCO2 at Patient Temp 35.1 L 38.0-54.0 mmHg Venous Blood pO2 at Patient Temp < 36.5 23.0-48.0 mmHg Venous Blood HCO3 23.6 22.0-29.0 mmol/L Venous Bld O2 Saturation (Measured) 50.5 L 60.0-85.0 % Venous Blood Base Excess -0.1 -2.0-3.0 mmol/L Venous Blood Total Hemoglobin 11.2 L 12.0-16.0 g/dL Venous Blood Oxyhemoglobin 49.7 0.0-79.0 % Venous Blood Carboxyhemoglobin 1.3 0.5-1.5 % Venous Blood Methemoglobin 0.3 0.0-1.5 % Blood Gas Liter Flow 2.00 Blood Gas Modality Nasal cannula FiO2 % 28.0 Blood Gas Comments Blood Gas Critical Value Read Back Yes Blood Gas Notified Whom jose Garcia md Blood Gas Notified Time [id number] Blood Gas Notified By White Blood Count 8.2 4.4-10.8 10^3/uL Red Blood Count 3.51 L 4.0-5.20 10^6/uL Hemoglobin 11.2 L 12.2-16.2 g/dL Hematocrit 34.6 L 36.0-46.0 % Mean Corpuscular Volume 98.7 80.0-100.0 fL Mean Corpuscular Hemoglobin 31.9 28.0-32.0 pg Mean Corpuscular Hemoglobin Concent 32.3 32.0-36.0 g/dL Red Cell Distribution Width 15.1 H 11.8-14.3 % Platelet Count 138 L 140-450 10^3/uL Mean Platelet Volume 7.4 6.9-10.8 fL Neutrophils (%) (Auto) 75.5 37.0-80.0 % Lymphocytes (%) (Auto) 13.7 10.0-50.0 % Monocytes (%) (Auto) 9.5 0.0-12.0 % Eosinophils (%) (Auto) 0.2 0.0-7.0 % Basophils (%) (Auto) 1.1 0.0-2.0 % Neutrophils # (Auto) 6.2 1.6-8.6 10 ^3/uL Lymphocytes # (Auto) 1.1 0.4-5.4 10 ^3/uL Monocytes # (Auto) 0.8 0-1.3 10 ^3/uL Eosinophils # (Auto) 0 0-0.8 10 ^3/uL Basophils # (Auto) 0.1 0-0.2 10 ^3/uL Nucleated Red Blood Cells 0.1 % Sodium Level 132 L 136-145 mmol/L Potassium Level 3.8 3.5-5.1 mmol/L Chloride Level 101 98-107 mmol/L Carbon Dioxide Level 23 20-31 mmol/L Anion Gap 8 5-15 Blood Urea Nitrogen 8 L 9-23 mg/dL Creatinine 0.67 0.550-1.02 mg/dL Glomerular Filtration Rate Calc 92 >90 mL/min BUN/Creatinine Ratio 11.9 10.0-20.0 Serum Glucose 79 74-106 mg/dL Lactic Acid Level 1.5 0.4-2.0 mmol/L Calcium Level 8.3 L 8.7-10.4 mg/dL B-Type Natriuretic Peptide 74.32 0-100 pg/mL Current Medications Medications (Trade) Dose Ordered Sig/Quinn Route Start Time Stop Time Status Last Admin Lactated Ringer's 1,800 ml @ 1,800 mls/hr ONCE ONCE IV 08/07/24 20:45 08/07/24 21:44 DC 08/07/24 21:01 Time of 1ST Reevaluation: 20:22 Reevaluation 1ST: Unchanged Patient Education/Counseling: Diagnosis, Treatment, Prognosis, Need For Follow Up Family Education/Counseling: No Family Present Additional Information Previous medical encounters reviewed: July 27, 2024 discharged improved with * Acute respiratory failure. * COVID-19 pneumonia with questionable sepsis. * Gastrointestinal bleeding with ulcerative colitis.* Hypothyroidism.* Left knee b ruise with trauma.* Non-ST elevation myocardial infarction, likely type 2. * Rheumatoid arthritis. * Old cerebrovascular accident. * Obesity. * Questionable acute diastolic heart failure. The following tests were ordered, and results were reviewed by me: 07/20/24, 07/14/24. mar 2012 admission notes Additional Information was gathered from interviewing the following independent historians: ems I reviewed and agreed with the following test results read by other providers: cxr I discussed treatment and results with medical personnel and: Patient Comprehensive systems review obtained and negative except for what is stated in the HPI. has has acute respiratory failure due to chronic lung disease with recent covid infection. her cxr does not show new changes. compared to prior ct, it's unchanged. she is not septic. her tachycardia is due to respiratory distress from hypoxia, respiratory failure. she will be admitted for further evaluations and treatments Sepsis Sepsis Reasesment Focused Exam Sepsis focused exam: focus exam completed (pt is feeling improved. although she is not septic, her reevaluation shows good capr efill< 2 secs, no hypotension. skin with good turgor), time: (2039) Departure 1 Departure Time of Disposition: 22:49 Impression: Primary Impression: Acute respiratory failure Qualified Codes: J96.01 - Acute respiratory failure with hypoxia Additional Impression: Hypoxia Disposition: ADMITTED INPATIENT Admit to: Tele Condition: Serious Discharged With: Self Critical Care Note Critical Care Time?: Yes (35 min-critical care time only) Critical care comment: Due to concerns for patients condition deteriorating, the care required my highest level of attention and readiness to intervene. I assessed the patient, reviewed the medical records, ordered the appropriate tests and treatments, then reassessed for results and responsiveness. I communicated with medical personnel and consultants and formulated a plan of care. Total critical care time excludes any procedures Stability Stability form required: No Heart Score Heart Score: Heart Score Response (Comments) Value History Moderate Suspicious 1 EKG Repolarization Disturb 1 Age >65 2 Risk Factors >3 or Hx ASHD 2 Troponin Normal limit 0 Total 6 I personally scribed for RAISA GARCIA MD ([facility]) on 08/07/24 at 20:23. Electronically submitted by Gonzales Queen ([facility]). I personally scribed for RAISA GARCIA MD ([facility]) on 08/07/24 at 20:26. Electronically submitted by Gonzales Queen ([facility]). I personally scribed for RAISA GARCIA MD ([facility]) on 08/07/24 at 20:47. Electronically submitted by Gonzales Queen ([facility]). RAISA GARCIA MD Aug 07, 2024 20:23
[2024-08-07 20:53] VITALS: PULSE 123; RESP 16; O2SAT 95
[2024-08-07 20:55] LABS: Basophils # (auto) 0.1 10 ^3/uL (0-0.2); Basophils % (auto) 1.1 % (0.0-2.0); Eosinophils # (auto) 0 10 ^3/uL (0-0.8); Eosinophils % (auto) 0.2 % (0.0-7.0); Hematocrit 34.6 % (36.0-46.0); Hemoglobin 11.2 g/dL (12.2-16.2); Lymphocytes # (auto) 1.1 10 ^3/uL (0.4-5.4); Lymphocytes % (auto) 13.7 % (10.0-50.0); Mean Corpuscular Hemoglobin 31.9 pg (28.0-32.0); Mean Corpuscular Hgb Conc. 32.3 g/dL (32.0-36.0); Mean Corpuscular Volume 98.7 fL (80.0-100.0); Monocytes # (auto) 0.8 10 ^3/uL (0-1.3); Monocytes % (auto) 9.5 % (0.0-12.0); Neutrophils # (auto) 6.2 10 ^3/uL (1.6-8.6); Neutrophils % (auto) 75.5 % (37.0-80.0); Nucleated Red Blood Cells % 0.1 %; Platelet Count (auto) 138 10^3/uL (140-450); Red Blood Cells 3.51 10^6/uL (4.0-5.20); Red Cell Distribution Width 15.1 % (11.8-14.3); White Blood Cell 8.2 10^3/uL (4.4-10.8)
[2024-08-07] MEDS: LACTATED RINGER'S 1,800 ML IV ONE (21:01)
[2024-08-07 21:05] LABS: Chloride 101 mmol/L (98-107); Potassium 3.8 mmol/L (3.5-5.1)
[2024-08-07 21:06] LABS: Anion Gap 8 (5-15); Carbon Dioxide 23 mmol/L (20-31)
[2024-08-07 21:11] LABS: BUN/Creatinine Ratio 11.9 (10.0-20.0); Glucose 79 mg/dL (74-106)
--- NOTE | 2024-08-07 21:14 | DVH ---
CHEST RADIOGRAPH Indication: sob Technique: Single frontal view of the chest was obtained Comparison: XY CHEST PORTABLE on DOS: 07/24/24, XY CHEST PORTABLE on DOS: 07/22/24, XY CHEST PORTABLE o n DOS: 07/20/[address] examination of the chest of July 21, 2024 FINDINGS: heart is borderline size. Patient has had internal fixation of the lumbosacral spine for scoliosis. T here is a residual dextroscoliosis involving the thoracic spine. There is stranding in the lung bases best seen on prior CT examination. Interstitium is prominent pro bably due to mild pulmonary vascular congestion. Again seen in prior CT examination.IMPRESSION: Findings are very similar [address] examination there stranding in the lung bases and mild pulmon lakeisha vascular congestion. Patient has a significant dextro rotation of the thoracic spine
[2024-08-07 21:39] LABS: Blood Urea Nitrogen 8 mg/dL (9-23); Calcium 8.3 mg/dL (8.7-10.4); Sodium 132 mmol/L (136-145)
[2024-08-07] MEDS ORDERED: PIPERACILLIN-TAZO 4.5GM 100 ML IV SCH (22:00)
[2024-08-07] MEDS ORDERED: ASPirin 325 MG TAB PO ONE (22:45)
[2024-08-07] MEDS ORDERED: AZITHROMYCIN 500MG/ 250ML 250 ML IV ONE (22:45)
[2024-08-07 23:28] LABS: Bilirubin, Total 1.1 mg/dL (0.2-1.0)
[2024-08-07] MEDS: cefTRIAXone 1GM/50ML D5W 50 ML IV ONE (23:33)
[2024-08-07 23:37] LABS: Magnesium 1.5 mg/dL (1.6-2.6); Phosphorus 2.3 mg/dL (2.4-5.1); Total Protein 4.8 g/dL (5.7-8.2)
--- NOTE | 2024-08-07 23:38 | DVHHPRES ---
History of Present Illness Resident Creating Document: SEYMOUR NEGRETE History of Present Illness Tia Dias is a 74 year old female patient who presents to ED with chief complaint of acute dyspnea in functional class IV which suddenly appeared the day of her admission. Associated she also presented productive cough with dark green phlegm, chills and worsening of left lower limb swelling for the past three days before her admission. Patient reports recent admission due to COVID pneumonia, was discharged on 07/27/2024 in continued with prednisone 20 mg p.o. daily (she normally takes 10 mg p.o. daily due to her rheumatoid arthritis). Denies palpitation, syncope, chest pain, nausea, vomiting, diarrhea, constipation, bleeding, recent travel, sick contacts and motor or sensory deficits. Past medical history: Ulcerative colitis, rheumatoid arthritis, hypothyroidism, scoliosis status postop, recent hospitalization due to COVID pneumonia comp licated with NSTEMI type 2 Surgical history: Multiple joint surgeries due to rheumatoid arthritis (this includes multiple bilateral feet, wrist, spine, etc.) Family history: Noncontributory Social history: Lives in [place] with family. Denies current tobacco, alcohol and other drug abuse Allergies: Multiple, anaphylactic towards sulfa and penicillins. Home medication: Prednisone currently 20 mg p.o. daily, mesalamine, cholestyramine powder, levothyroxine 88 mcg p.o. daily, used to be on Humira for 12 years but discontinued approximately one year ago. Patient seen and examined at bedside. Currently feels better since admission, she is on nasal cannula at 1 L/min saturating 92% (in room air she saturates 84%) completed lower limb venous ultrasound which showed DVT of left superficial femoral vein. Completed Salzaar CT of chest which showed pulmonary embolism. Currently indicated heparin drip, we will be evaluated by cardiological services in the a.m. for eventual thrombectomy (patient is hemodynamically stable, troponin are trending down since last admission, no RV strain on CT). Evaluate reordering echocardiogram (most recent one was completed on 06/2024) Past Medical History Per HPI Past Surgical History Per HPI Family History Per HPI Past Social History Per HPI Review of Systems Review of Systems Per HPI Allergies: Coded Allergies: Aspirin (Verified Allergy, Unknown, 09/08/19) Clarithromycin (Verified Allergy, Unknown, 09/08/19) Clindamycin (Verified Allergy, Unknown, 09/08/19) Doxycycline (Verified Allergy, Unknown, 09/08/19) Lactose Intolerance (GI) (Verified Allergy, Unknown, 07/22/24) Levofloxacin (Verified Allergy, Unknown, 09/08/19) Metoprolol (Verified Allergy, Unknown, 09/08/19) Nitrofurantoin (Verified Allergy, Unknown, 09/08/19) Penicillins (Verified Allergy, Unknown, 09/08/19) Sulfa Drugs (Verified Allergy, Unknown, 09/08/19) Sulfamethoxazole w/Trimethoprim (Verified Allergy, Unknown, 09/08/19) Tetracycline (Verified Allergy, Unknown, 09/08/19) Uncoded Allergies: NITRO (Allergy, Unknown, 07/14/24) Exam Vital Signs Vital Signs Date Time Temp Pulse Resp B/P (MAP) Pulse Ox O2 Delivery O2 Flow Rate FiO2 08/07/24 20:53 123 16 95 Nasal Cannula* 2 28 08/07/24 20:52 98.5 154/69 (97) 98.5 Exam Patient lying in bed, in no acute distress General: Lucid, afebrile, mucosae are moist Cardiovascular: Normal S1 and S2. No murmurs, gallops or rubs Respiratory: Regular ventilation mechanics. Diffuse bilateral rhonchus on lung auscultation. On nasal cannula 1 L/min Abdomen: Soft, nontender, no organomegaly, normal bowel sounds MSK/skin: Mobilizes 4 limbs. Skin is dry and warm. Bilateral suprapatellar lower limb pitting edema, left greater than right associated with erythema /hematoma. Very tender on palpation. : Presents perivulvar erythematous plaque. Neurological: Oriented in 3 spheres. No motor no sensitive deficits. Pupils are isocoric and reactive Labs/Xrays Labs Test 08/07/24 21:40 08/07/24 21:01 08/07/24 20:42 Range/Units Troponin I High Sensitivity 42 *H </=34 ng/L Blood Gas Specimen Type Venous Blood Gas Sample Site Left radial Blood Gas Patient Temperature 37.0 Arterial Blood Date Drawn [id number] Mian Test Yes Venous Blood pH 7.445 H 7.320-7.430 Venous Blood pCO2 at Patient Temp 35.1 L 38.0-54.0 mmHg Venous Blood pO2 at Patient Temp < 36.5 23.0-48.0 mmHg Venous Blood HCO3 23.6 22.0-29.0 mmol/L Venous Bld O2 Saturation (Measured) 50.5 L 60.0-85.0 % Venous Blood Base Excess -0.1 -2.0-3.0 mmol/L Venous Blood Total Hemoglobin 11.2 L 12.0-16.0 g/dL Venous Blood Oxyhemoglobin 49.7 0.0-79.0 % Venous Blood Carboxyhemoglobin 1.3 0.5-1.5 % Venous Blood Methemoglobin 0.3 0.0-1.5 % Blood Gas Liter Flow 2.00 Blood Gas Modality Nasal cannula FiO2 % 28.0 Blood Gas Comments Blood Gas Critical Value Read Back Yes Blood Gas Notified Whom jose Garcia md Blood Gas Notified Time [id number] Blood Gas Notified By White Blood Count 8.2 4.4-10.8 10^3/uL Red Blood Count 3.51 L 4.0-5.20 10^6/uL Hemoglobin 11.2 L 12.2-16.2 g/dL Hematocrit 34.6 L 36.0-46.0 % Mean Corpuscular Volume 98.7 80.0-100.0 fL Mean Corpuscular Hemoglobin 31.9 28.0-32.0 pg Mean Corpuscular Hemoglobin Concent 32.3 32.0-36.0 g/dL Red Cell Distribution Width 15.1 H 11.8-14.3 % Platelet Count 138 L 140-450 10^3/uL Mean Platelet Volume 7.4 6.9-10.8 fL Neutrophils (%) (Auto) 75.5 37.0-80.0 % Lymphocytes (%) (Auto) 13.7 10.0-50.0 % Monocytes (%) (Auto) 9.5 0.0-12.0 % Eosinophils (%) (Auto) 0.2 0.0-7.0 % Basophils (%) (Auto) 1.1 0.0-2.0 % Neutrophils # (Auto) 6.2 1.6-8.6 10 ^3/uL Lymphocytes # (Auto) 1.1 0.4-5.4 10 ^3/uL Monocytes # (Auto) 0.8 0-1.3 10 ^3/uL Eosinophils # (Auto) 0 0-0.8 10 ^3/uL Basophils # (Auto) 0.1 0-0.2 10 ^3/uL Nucleated Red Blood Cells 0.1 % Sodium Level 132 L 136-145 mmol/L Potassium Level 3.8 3.5-5.1 mmol/L Chloride Level 101 98-107 mmol/L Carbon Dioxide Level 23 20-31 mmol/L Anion Gap 8 5-15 Blood Urea Nitrogen 8 L 9-23 mg/dL Creatinine 0.67 0.550-1.02 mg/dL Glomerular Filtration Rate Calc 92 >90 mL/min BUN/Creatinine Ratio 11.9 10.0-20.0 Serum Glucose 79 74-106 mg/dL Lactic Acid Level 1.5 0.4-2.0 mmol/L Calcium Level 8.3 L 8.7-10.4 mg/dL Phosphorus Level 2.3 L 2.4-5.1 mg/dL Magnesium Level 1.5 L 1.6-2.6 mg/dL Total Bilirubin 1.1 H 0.2-1.0 mg/dL Aspartate Amino Transferase (AST) 28 13-40 U/L Alanine Aminotransferase (ALT) 32 7-40 U/L Alkaline Phosphatase 63 46-116 U/L B-Type Natriuretic Peptide 74.32 0-100 pg/mL Total Protein 4.8 L 5.7-8.2 g/dL Albumin 3.0 L 3.2-4.8 g/dL Assessment/Plan Assessment/Plan Assessment: Acute respiratory failure Right Pulmonary embolism (PESI: 113 points <high risk>, RIETE: 2.5 points) Community-acquired pneumonia Gram-positive/Gram-negative Left superficial femoral DVT NSTEMI probable type 2 Perivulvar candidiasis Ulcerative colitis Rheumatoid arthritis Scoliosis Hypothyroidism Recent COVID pneumonia Plan: Completed bilateral lower limb venous ultrasound which showed left superficial femoral DVT. Completed angio CT of chest which showed positive for PE in multiple right pulmonary arteries (no heart strain), patchy ground-glass and consolidative airspace opacities bilateral as well as tiny nodular and nahomi e-in-bud opacities (multifocal atypical pneumonia), trace bilateral pleural effusion, questionable fibrosis or cirrhosis of liver, nonobstructing right lower pole renal calculus. Patient is currently on heparin drip. Consulted oil program compliance specialist to rand luate requirement of thrombectomy Under empiric IV antibiotic (meropenem and vancomycin). Patient has multiple allergies, evaluate response. Troponin currently are flat trending (have trended down since last admission) Consulted pulmonology specialist. Indicated antifungal cream Ordered noel cultures (blood, urine and sputum) Continue home medication (this includes mesalamine, levothyroxine and pantoprazole) Goals of care discussed with patient for over 18 minutes: Full code status Discussed plan with Dr. Sena, patient and nurses: Patient is currently on IV heparin drip, empiric IV antibiotics (meropenem and vancomycin), bronchodilators, oxygen therapy and IV steroids. Consulted Cardiology and pulmonology specialist. Patient has poor prognosis. Plan discussed with: Patient, Other (Nurses) My Orders Orders - SEYMOUR NEGRETE RESIDENT Procedure Category Date Status Time Covid19 Antigen Felicity LAB 08/07/24 Logged Rapid Influenza A&B LAB 08/07/24 Logged 23:01 Mrsa Screen ANY 08/07/24 Logged 23:01 Sputum Induction RT 08/07/24 Logged 23:01 Respiratory Culture ANY 08/07/24 Logged W/ Gs 23:01 Urine Bacterial ANY 08/07/24 Logged Culture 23:01 Vitamin D, 25-Hydroxy LAB 08/07/24 In Process 23:01 Vitamin B12 LAB 08/07/24 In Process 23:01 Urinalysis LAB 08/07/24 Logged 23:01 Thyroid Stimulating LAB 08/07/24 In Process Hormone 23:01 PTPTT LAB 08/07/24 In Process 23:01 Hemoglobin A1c LAB 08/07/24 In Process 23:01 Drug Screen LAB 08/07/24 Logged 23:01 Hepatic Panel LAB 08/07/24 In Process 23:01 Complete Blood Count LAB 08/08/24 Verified 04:00 Comprehensive LAB 08/08/24 Verified Metabolic Panel 04:00 Code Status CODE 08/07/24 Transmitted 23:32 Vital Signs [facility] 08/07/24 In Process 23:32 Review Orders With [facility] 08/07/24 In Process Adm. 23:32 Npo (Nothing By DIET 08/08/24 Transmitted Mouth) Diet Breakfast Oxygen By Face Mask RT 08/07/24 Transmitted 23:32 Pulse Ox Cont Per Day RT 08/07/24 Logged 23:32 Pulse Oxymetry RT 08/07/24 Transmitted Assessment - 2 23:32 Acetaminophen Tablet PHA 08/07/24 Logged (Tylenol Tablet) 23:45 Notify Md Of Changes [facility] 08/07/24 In Process From Base 23:32 Advance Directive [facility] 08/07/24 In Process 23:32 Patient Condition ORDERS 08/07/24 Transmitted 23:32 Allergies [facility] 08/07/24 In Process 23:32 Ondansetron Hcl PHA 08/07/24 Logged (Zofran) 23:45 Morphine Sulfate PHA 08/07/24 Logged Injection 23:45 Enoxaparin Sodium [facility] 08/08/24 Logged (Lovenox) 10:00 Oxygen By Nasal RT 08/07/24 Transmitted Cannula 23:32 Stat Ekg For Chest [facility] 08/07/24 In Process Pain 23:32 Notify Md Of Changes [facility] 08/07/24 In Process From Base 23:32 Director Diabetes For [facility] 08/07/24 In Process 24 Hours 23:32 Emergency Dysrhythmia [facility] 08/07/24 In Process Protocol 23:32 Rhythm Strips Once [facility] 08/07/24 In Process Every Shift 23:[address] 08/07/24 Logged Contrast 23:32 Bilat Lower Dvt US 08/07/24 Logged 23:32 Meropenem 1gm Ivpb [facility] 08/08/24 Transmitted Q8hr 06:00 Vancomycin Per PHA 08/07/24 Transmitted Pharmacy 23:45 Admit ADMIT 08/07/24 Verified 23:32 Date of Service: Aug 07, 2024 Billing Provider: MANJINDER SENA MD Common Visit Codes: [id number] INP/OBS CARE (HIGH) Secondary Visit Codes: [id number] CARE PLAN 30 MINUTES SEYMOUR NEGRETE RESIDENT Aug 07, 2024 23:38 MANJINDER SENA MD Aug 08, 2024 09:57
[2024-08-07] MEDS ORDERED: ONDANSETRON HCL 4 MG/2 ML VIAL IV PRN (23:45)
[2024-08-07] MEDS ORDERED: ACETAMINOPHEN 325 MG TAB PO PRN (23:45)
[2024-08-07] MEDS ORDERED: MORPHINE SULFATE INJ 2 MG/ml SYRG IV PRN (23:45)
[2024-08-07] MEDS ORDERED: VANCOMYCIN PER PHARMACY 0 MG IV SCH (23:45)
[2024-08-07] MEDS: IOHEXOL 350 MG/ML 100ML IJ ONE (23:49)
[2024-08-08] VITALS (22 sets, daily range): BP systolic 98–160; BP diastolic 46–78; PULSE 107–134; RESP 16–24; TEMP 98–98.8; O2SAT 92–100
[2024-08-08] LABS: Bilirubin, Direct 0.4 mg/dL (<0.3)
[2024-08-08 00:12] LABS: INR 1.02 (0.9-1.15); Partial Thromboplastin Time 24.8 SEC (24.5-34.5); Prothrombin Time 10.8 sec (9.3-11.8)
[2024-08-08 00:22] LABS: Urine Bacteria FEW /hpf (None Seen); Urine Blood Negative /uL (Negative); Urine Clarity Clear (Clear); Urine Color Light-Yellow (Yellow); Urine Mucus FEW (None Seen); Urine Protein, UAD Negative (Negative); Urine Specific Gravity 1.009 (1.001-1.035); Urine Squamous Epithelial Cell FEW /hpf (<5); Urine Urobilinogen Normal (Negative); Urine WBC 1 /HPF (0-5)
[2024-08-08 00:27] LABS: Amphetamine Screen, Urine Neg (NEGATIVE); Barbiturate Scree,Urine Neg (NEGATIVE); Benzodiazephine Screen, Urine Neg (NEGATIVE); Cannabinoid Screen, Urine Neg (NEGATIVE); Cocaine Screen, Urine Neg (NEGATIVE); Opiate Scree,Urine Neg (NEGATIVE); Phencyclidine Screen, Urine Neg (NEGATIVE)
--- NOTE | 2024-08-08 00:40 | DVH ---
CLINICAL HISTORY: Lower limb swelling TECHNIQUE: Color and duplex doppler imaging of the bilateral lower extremity veins was performed. Ves dejan compression if possible was also performed. WID: COMPARISON: US BILAT LOWER DVT on DOS: 07/21/24, US BILAT LOWER DVT on DOS: 07/15/24 FINDINGS: Right Lower Extremity: Right common femoral vein: Normal compressibility and flow. Right femoral vein: Normal compressibility and flow. Right popliteal vein: Normal compressibility and flow. Proximal calf veins are normally compressible. A right Gautam's cyst was visualized on the prior study. Left Lower Extremity: Left common femoral vein: Mixed echogenicity predominantly echogenic partially occlusive thrombus in the left common femoral vein Left femoral vein: Normal compressibility and flow. Left popliteal vein: Normal compressibility and flow. Left posterior tibial vein not visualized. Subcutaneous edema in the left calf. IMPRESSION: 1. Subacute to chronic appearing DVT in the left common femoral vein. 2. No evidence of DVT in the right lower extremity. Critical Result: Left common femoral vein DVT, subacute to chronic Findings discussed with RAISA QUINTERO at 08/08/2024 , and acknowledged receipt and understanding of the findings per the brass pourer. ..
[2024-08-08 00:55] LABS: COVID19 ANTIGEN SOFIA FIA NEGATIVE (NEGATIVE); Rapid Influenza A Negative (Negative); Rapid Influenza B Negative (Negative)
--- NOTE | 2024-08-08 01:46 | DVH ---
CLINICAL HISTORY: Rule out PE patient has DVT TECHNIQUE: CT angiogram of the chest was performed with intravenous contrast. [3D MIP reconstructed i mages were created and archived on the PACS system. This exam was performed according to our departnm ntal dose optimization program. Up-to-date CT equipment and radiation dose reduction techniques are u tilized as appropriate. CTDI: 17.26+ 14.8+ 0.14 DLP: 681.3 WID: COMPARISON: CT CT ANGIO CHEST CONTRAST on DOS: 07/21/24 FINDINGS: Lower Neck: Unremarkable Axilla, Mediastinum and Franchesca: Small hiatal hernia. No thoracic lymphadenopathy. Heart and Great Vessels: Normal-sized heart. The thoracic aorta is patent and normal caliber containi ng mild mixed atherosclerotic plaque. At least mild coronary artery calcifications. Positive for pulm onary emboli in the distal right main pulmonary artery extending into the lobar right upper lobe pulm onary artery, lobar right lower lobe pulmonary artery into right lower lobe segmental and subsegmenta l pulmonary arteries. No right heart strain. Airway, Lungs and Pleura: The trachea and central airways are patent. There is bronchial wall thicken ing. Scattered pleural-parenchymal scarring bilaterally. There is mild patchy ground-glass and consol idative opacities bilaterally additional tiny nodular and tree-in-bud opacities in the lungs. Linear consolidations in the basilar lower lobes greater on the left . persistent small consolidation in the right upper lobe on series 3, image 46. No pneumothorax. Trace bilateral pleural effusions. Chest Wall and Osseous Structures: Chondrocalcinosis of the left acromioclavicular joint. There is mi ld thoracic spondylosis. There is left-sided marley and multiple screw fixation in the lower thoracic sp ine extending inferiorly to the lumbar spine beyond the [id number]. There is mild right convexity scoliosis of the upper to midthoracic spine and left convexity scoliosis of the lower thoracic spine. Upper abdomen: Nonobstructing right lower pole renal calculus. There is nodular contour of the liver. There is hepatic steatosis. Prior cholecystectomy. IMPRESSION: 1. Positive for acute pulmonary emboli in multiple right pulmonary arteries as described. No right he art strain. 2. Patchy ground-glass and consolidative airspace opacities bilaterally as well as tiny nodular and t ree-in-bud opacities in the lungs which could reflect multifocal atypical pneumonia. 3. Trace bilateral pleural effusions. 4. At least mild calcified coronary artery disease. 5. Nodular contour of the liver and hepatic steatosis. Consider fibrosis or cirrhosis. Correlate wit h liver enzymes and clinical history. 6. Nonobstructing right lower pole renal calculus. Critical Result: Pulmonary embolism. Findings discussed with RAISA QUINTERO at 08/08/2024 01:43 AM, and acknowledged receipt and understandin g of the findings. ..
[2024-08-08] MEDS: HEPARIN SODIUM (PORCINE) 5000 UNITS/ML 1ML VIAL IV ONE (01:57)
[2024-08-08] MEDS: CLOTRIMAZOLE 1 % CREAM 15GM TOP ONE (02:15)
[2024-08-08] MEDS: SODIUM CHLORIDE 0.9% 1,000 ML IV SCH (02:45)
[2024-08-08] MEDS: methylPREDNISolone SOD SUCC 40 MG/ML VL IV ONE (02:45)
[2024-08-08] MEDS: HEPARIN DRIP/D5W 100UNITS/ML 250 ML IV SCH ×2 (02:45→12:12)
[2024-08-08] MEDS: MEROPENEM 1GM IVPB 50 ML IV SCH (06:00)
[2024-08-08] MEDS: MESALAMINE 400mg Delayed Release Cap PO SCH (06:00)
[2024-08-08] MEDS: LEVOTHYROXINE SODIUM 88 MCG TAB PO SCH (06:14)
--- NOTE | 2024-08-08 06:15 | ECG ---
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
[2024-08-08] MEDS: IPRATROPIUM BROM 0.5 MG/2.5ML INH SOL NEB SCH (07:11)
[2024-08-08] MEDS: LEVALBUTEROL HCL 1.25 MG/3 ML NEB NEB SCH (07:12)
[2024-08-08 09:21] LABS: Basophils # (auto) 0 10 ^3/uL (0-0.2); Basophils % (auto) 0.6 % (0.0-2.0); Eosinophils # (auto) 0.1 10 ^3/uL (0-0.8); Eosinophils % (auto) 1.4 % (0.0-7.0); Hematocrit 33.5 % (36.0-46.0); Lymphocytes % (auto) 14.8 % (10.0-50.0); Mean Corpuscular Hemoglobin 31.6 pg (28.0-32.0); Mean Corpuscular Hgb Conc. 32.8 g/dL (32.0-36.0); Mean Corpuscular Volume 96.4 fL (80.0-100.0); Monocytes # (auto) 0.4 10 ^3/uL (0-1.3); Monocytes % (auto) 6.6 % (0.0-12.0); Neutrophils # (auto) 5.1 10 ^3/uL (1.6-8.6); Neutrophils % (auto) 76.6 % (37.0-80.0); Nucleated Red Blood Cells % 0.2 %; Platelet Count (auto) 117 10^3/uL (140-450); Red Blood Cells 3.47 10^6/uL (4.0-5.20); Red Cell Distribution Width 14.5 % (11.8-14.3); White Blood Cell 6.6 10^3/uL (4.4-10.8)
[2024-08-08 09:34] LABS: Alanine Aminotransferase 27 U/L (7-40); Alkaline Phosphatase 63 U/L (46-116); Anion Gap 10 (5-15); Aspartate Aminotransferase 21 U/L (13-40); BUN/Creatinine Ratio 12.3 (10.0-20.0); Carbon Dioxide 22 mmol/L (20-31); Chloride 101 mmol/L (98-107)
[2024-08-08 09:35] LABS: Bilirubin, Total 0.8 mg/dL (0.2-1.0)
[2024-08-08 09:36] LABS: Blood Urea Nitrogen 7 mg/dL (9-23); Glucose 74 mg/dL (74-106); Potassium 3.3 mmol/L (3.5-5.1); Sodium 133 mmol/L (136-145); Total Protein 5.1 g/dL (5.7-8.2)
[2024-08-08 09:45] LABS: INR 1.15 (0.9-1.15)
[2024-08-08 09:53] LABS: Partial Thromboplastin Time > 139.0 SEC (24.5-34.5)
[2024-08-08] MEDS: CLOTRIMAZOLE 1 % CREAM 15GM TOP SCH (10:00)
[2024-08-08] MEDS ORDERED: ENOXAPARIN SOD 40 MG/0.4 ML SYRINGE SC SCH (10:00)
[2024-08-08] MEDS: methylPREDNISolone SOD SUCC 40 MG/ML VL IV SCH (10:00)
[2024-08-08 10:02] LABS: Base Excess -1.7 mmol/L (-2.0-3.0)
--- NOTE | 2024-08-08 10:33 | CONS ---
Pharmacy Clinical Information: APTT DRAWN AT 0846 RESULTED AT 1025, >139 DRIP STOPPED FOR 1 HOUR PATIENT RE-WEIGHED AT 68KG (ORIGINALLY DOSED AT WEIGHT 100KG) DRIP TO BE RE-STARTED AT 1125 AT RATE 1200 UNITS/HR = 12 ML/HR CONFIRMED WITH LILIA GOODRICH NEXT APTT DRAW SCHEDULED FOR 1730 PER RX PROTOCOL [place] PHARMACIST Aug 08, 2024 10:33
[2024-08-08] MEDS: ATORVASTATIN 20 MG TAB PO SCH (10:46)
[2024-08-08] MEDS: CYANOCOBALAMIN 500 MCG TAB PO SCH (10:46)
[2024-08-08] MEDS: CHOLESTYRAMINE 4 GM POWDER PO SCH (10:46)
[2024-08-08] MEDS: PANTOPRAZOLE 40 MG TAB PO SCH (10:46)
--- NOTE | 2024-08-08 12:40 | DVHINCON2 ---
[facility] 08/08/24 1240: Date Seen: Aug 08, 2024 Referring Physician MD Teresa Reason for Consultation PE evaluate for thrombectomy History of Present Illness This is a 74-year-old female who presented to the emergency room via EMS with a chief complaint of shortness of breath. The patient complains progressive shortness of breath associated with a productive cough with greenish sputum and left lower extremity edema and erythema. O2 saturations were found at 88% at the scene for which she was provided supplemental oxygenation via nasal cannula. The patient had a recent admission to this facility and discharged home on 07/27/2024. At that time, she was diagnosed with COVID-19 pneumonia with questionable sepsis, acute respiratory failure, and gastrointestinal bleeding with ulcerative colitis. Troponin levels peaked at 42 ng/L. A 12 lead electrocardiogram revealed a sinus tachycardia rhythm. Significant medical history includes ulcerative colitis with recent GI bleed, rheumatoid arthritis, hypothyroidism, scoliosis, dyslipidemia, GERD, and recent COVID-19 pneumonia. Past Medical History Past medical history reviewed. No other significant than mentioned above. Past Surgical History Multiple joint surgeries secondary to RA Family History: Patient reports no known family medical history. Family History Family history reviewed. Social History Denies the use of illicit drugs, alcohol, or tobacco use. Allergies: Coded Allergies: Aspirin (Verified Allergy, Unknown, 09/08/19) Clarithromycin (Verified Allergy, Unknown, 09/08/19) Clindamycin (Verified Allergy, Unknown, 09/08/19) Doxycycline (Verified Allergy, Unknown, 09/08/19) Lactose Intolerance (GI) (Verified Allergy, Unknown, 07/22/24) Levofloxacin (Verified Allergy, Unknown, 09/08/19) Metoprolol (Verified Allergy, Unknown, 09/08/19) Nitrofurantoin (Verified Allergy, Unknown, 09/08/19) Penicillins (Verified Allergy, Unknown, 09/08/19) Sulfa Drugs (Verified Allergy, Unknown, 09/08/19) Sulfamethoxazole w/Trimethoprim (Verified Allergy, Unknown, 09/08/19) Tetracycline (Verified Allergy, Unknown, 09/08/19) Uncoded Allergies: NITRO (Allergy, Unknown, 07/14/24) Home Meds Active Scripts Prednisone (Prednisone) 10 Mg Tab, 10 MG PO QAM for 30 Days, #30 MG Prov:BETTY ROGER MD 07/27/24 Prednisone (Prednisone) 20 Mg Tab, 20 MG PO QAM for 7 Days, #14 MG Prov:BETTY ROGER MD 07/27/24 Mesalamine (Mesalamine Dr) 800 Mg Tab, 800 MG PO TID for 30 Days, #90 TAB 2 Refills Prov:BETTY ROGER MD 07/27/24 Cholestyramine (Cholestyramine) Pow, 4 GM PO DAILY for 30 Days, #30 POW Prov:BETTY ROGER MD 07/27/24 Loperamide Hcl (Imodium) 2 Mg Cp, 2 MG PO Q4HR PRN, #30 CAP Prov:JOSIANE ORTIZ MD 07/18/24 Mesalamine (Lialda) 1.2 Gm Tab, 1.2 GM PO BID, #30 TAB Prov:JOSIANE ORTIZ MD 07/18/24 Methylprednisolone (Medrol Dosepak) 4 Mg Jp, 4 MG PO UD, #21 TAB UAD Prov:JOSIANE ORTIZ MD 07/18/24 Reported Medications Cyanocobalamin (Vitamin B-12) 1,000 Mcg Tab, 1 TAB PO DAILY for 60 Days, #60 07/22/24 Adalimumab (Humira Pen) 40 Mg/0.8 Ml Inj, MG SC QWEEKLY for 56 Days, #8 07/22/24 Leflunomide (Arava) 20 Mg Tab, 1 TAB PO DAILY for 90 Days, #90 07/15/24 Ibuprofen Micronized (MOTRIN TABLET) 600 Mg Tb, 200 MG PO QID, #40 TAB *Black box warning-NSAIDS can increase risk of [place] & hypertension, GI irritation, ulceration, bleed, perferation. Do not use post cardiac surgery. Use short duration/lowest effective dose. 07/15/24 Atorvastatin Calcium (ATORVASTATIN CALCIUM) 20 Mg Tab, 1 TAB PO DAILY, #30 TAB 5 Refills 09/08/19 Levothyroxine Sodium (Levothyroxine Sodium) 88 Mcg Tab, 88 MCG PO QAM for 30 Days, MCG 09/08/19 Dicyclomine Hcl (Dicyclomine Hcl) 20 Mg Tab, 1 TAB PO QID PRN for ABD CRAMPING for 30 Days, #30 09/08/19 Pantoprazole Sodium Sesquihydr (Protonix) 40 Mg Tab, 40 MG PO DAILY, #30 TAB 09/08/19 Estrogens, Conjugated (PREMARIN TABLET) 0.625 Mg Tb, 1 TAB PO DAILY for 90 Days, #90 09/08/19 Home Meds Home medications reviewed. Current Medications Current Medications Medications (Trade) Dose Ordered Sig/Quinn Route PRN Reason Start Time Stop Time Status Last Admin Piperacillin Sod/ Tazobactam Sod 100 ml @ 25 mls/hr Q8HR IV 08/07/24 22:00 08/07/24 23:01 DC Acetaminophen (Tylenol Tablet) 650 mg Q6HP PRN PO PAIN SCALE 1-3 OR TEMP>100.4 08/07/24 23:45 Ondansetron HCl (Zofran) 4 mg Q4HP PRN IV NAUSEA / VOMITING 08/07/24 23:45 Morphine Sulfate 2 mg Q4HPRN PRN IV SEVERE PAIN (7-10 PAIN SCALE) 08/07/24 23:45 Enoxaparin Sodium (Lovenox) 40 mg DAILY SC 08/08/24 10:00 08/08/24 00:36 DC Meropenem 50 ml @ 17 mls/hr Q8HR IV 08/08/24 06:00 Vancomycin HCl 0 ml @ 0 mls/hr UD IV 08/07/24 23:45 Heparin Sodium/ Dextrose 250 ml @ 18 mls/hr [id number] IV 08/08/24 01:30 08/08/24 10:27 DC 08/08/24 02:45 Clotrimazole (Lotrimin 1% Cream) 1 applic Q12HR [facility] 08/08/24 10:00 Ipratropium [place] (Atrovent Medneb) 0.5 mg Q6HWA [facility] 08/08/24 06:00 08/08/24 11:31 Levalbuterol HCl (Xopenex Medneb) 0.625 mg Q6HR [facility] 08/08/24 06:00 08/08/24 11:32 Methylprednisolone Sodium Succinate (Solu Medrol) 40 mg BID IV 08/08/24 10:00 Sodium Chloride 1,000 ml @ 100 mls/hr Q10H IV 08/08/24 02:45 Atorvastatin Calcium (Lipitor) 20 mg DAILY PO 08/08/24 10:00 08/08/24 10:46 Levothyroxine Sodium (Synthroid Tablet) 88 mcg QAM PO 08/08/24 07:00 08/08/24 06:14 Pantoprazole Sodium (Protonix Tablet) 40 mg DAILY PO 08/08/24 10:00 08/08/24 10:46 Cholestyramine Resin (Questran Powder) 4 gm DAILY PO 08/08/24 10:00 08/08/24 10:46 Cyanocobalamin (Vitamin B-12) 1,000 mcg DAILY PO 08/08/24 10:00 08/08/24 10:46 Mesalamine (DELZICOL Delayed Release Capsule) 800 mg TID PO 08/08/24 06:00 Heparin Sodium/ Dextrose 250 ml @ 12 mls/hr [id number] IV 08/08/24 11:25 Vancomycin HCl 200 ml @ 160 mls/hr Q12H IV 08/08/24 13:00 Review of Systems Constitutional: No symptom reported Ears, Nose, & Throat: No symptom reported Eyes: No symptom reported Neurological: No symptoms reported Pulmonary/Respiratory: SOB, productive cough Cardiovascular: No symptom reported Gastrointestinal: No symptom reported Genitourinary: No symptom reported Musculoskeletal: LLE edema Skin: No symptom reported Psychiatric: No symptom reported Endocrine: No symptom reported Hemotologic/Lymphatic: No symptom reported Vital Signs Vital Signs Date Time Temp Pulse Resp B/P (MAP) Pulse Ox O2 Delivery O2 Flow Rate FiO2 08/08/24 11:38 120 16 100 08/08/24 11:32 Nasal Cannula* 2 28 08/08/24 08:50 98.8 122/64 (83) 98.8 Physical Exam General Appearance: Cooperative. Obese. Moderate acute distress Head Exam: Normal inspection Neck Exam: Normal inspection. Normal alignment Pulmonary/Respiratory: Chest non-tender. Coarse bilateral breath sounds. O2 via NC Cardiovascular/Chest: Regular rate and rhythm. S1, S2. Sinus tachycardia 130s bpm. No murmurs. No JVD. Peripheral Pulses: 2+ Radial (R). 2+ Radial (L). 2+ Pedal (R). 2+ Pedal (L) Abdominal Exam: Normal bowel sounds. Soft. Ankle Exam: Positive ankle edema, L>R Lower extremities: Positive lower extremity edema, L>R Neuro/Mental Status: A&O x4. Coherent Thoughts/Psych: Normal thought pattern. Appropriate mood and affect. Good judgement and insight Appearance: Moderate respiratory distress Skin Exam: Left lower extremity erythema, swelling, hot to touch Labs/Diagnostic Data Labs Test 08/08/24 09:57 08/08/24 08:46 08/08/24 00:20 08/07/24 23:54 Range/Units Blood Gas Specimen Type Arterial Blood Gas Sample Site Left radial Blood Gas Patient Temperature 37.0 Arterial Blood Date Drawn [id number] Arterial Blood pH 7.505 H 7.350-7.450 Arterial Blood Partial Pressure CO2 26.4 L 32.0-45.0 mmHg Arterial Blood Partial Pressure O2 53.3 *L 83.0-108.0 mmHg Arterial Blood HCO3 20.4 L 21.0-28.0 mmol/L Arterial Blood Oxygen Saturation 88.8 L 94.0-98.0 % Arterial Blood Base Excess -1.7 -2.0-3.0 mmol/L Arterial Blood Oxyhemoglobin 88.1 L 94.0-98.0 % Arterial Blood Carboxyhemoglobin 0.5 0.5-1.5 % Arterial Blood Methemoglobin 0.3 0.0-1.5 % Mian Test Yes Blood Gas Total Hemoglobin 10.80 L 12.0-16.0 g/dL Blood Gas Liter Flow 0.00 Blood Gas Modality Room air FiO2 % 21.0 Blood Gas Critical Value Read Back Yes Blood Gas Notified Whom Santiago griffith. Blood Gas Notified Time [id number] Blood Gas Notified By Jed francis White Blood Count 6.6 4.4-10.8 10^3/uL Red Blood Count 3.47 L 4.0-5.20 10^6/uL Hemoglobin 11.0 L 12.2-16.2 g/dL Hematocrit 33.5 L 36.0-46.0 % Mean Corpuscular Volume 96.4 80.0-100.0 fL Mean Corpuscular Hemoglobin 31.6 28.0-32.0 pg Mean Corpuscular Hemoglobin Concent 32.8 32.0-36.0 g/dL Red Cell Distribution Width 14.5 H 11.8-14.3 % Platelet Count 117 L 140-450 10^3/uL Mean Platelet Volume 7.8 6.9-10.8 fL Neutrophils (%) (Auto) 76.6 37.0-80.0 % Lymphocytes (%) (Auto) 14.8 10.0-50.0 % Monocytes (%) (Auto) 6.6 0.0-12.0 % Eosinophils (%) (Auto) 1.4 0.0-7.0 % Basophils (%) (Auto) 0.6 0.0-2.0 % Neutrophils # (Auto) 5.1 1.6-8.6 10 ^3/uL Lymphocytes # (Auto) 1.0 0.4-5.4 10 ^3/uL Monocytes # (Auto) 0.4 0-1.3 10 ^3/uL Eosinophils # (Auto) 0.1 0-0.8 10 ^3/uL Basophils # (Auto) 0 0-0.2 10 ^3/uL Nucleated Red Blood Cells 0.2 % Prothrombin Time 12.0 H 9.3-11.8 sec Prothrombin Time INR 1.15 0.9-1.15 Activated Partial Thromboplast Time > 139.0 *H 24.5-34.5 SEC Sodium Level 133 L 136-145 mmol/L Potassium Level 3.3 L 3.5-5.1 mmol/L Chloride Level 101 98-107 mmol/L Carbon Dioxide Level 22 20-31 mmol/L Anion Gap 10 5-15 Blood Urea Nitrogen 7 L 9-23 mg/dL Creatinine 0.57 0.550-1.02 mg/dL Glomerular Filtration Rate Calc 96 >90 mL/min BUN/Creatinine Ratio 12.3 10.0-20.0 Serum Glucose 74 74-106 mg/dL Calcium Level 8.0 L 8.7-10.4 mg/dL Total Bilirubin 0.8 0.2-1.0 mg/dL Aspartate Amino Transferase (AST) 21 13-40 U/L Alanine Aminotransferase (ALT) 27 7-40 U/L Alkaline Phosphatase 63 46-116 U/L Total Protein 5.1 L 5.7-8.2 g/dL Albumin 3.0 L 3.2-4.8 g/dL Lactic Acid Level 0.8 0.4-2.0 mmol/L Influenza Type A Antigen Negative Negative Influenza Type B Antigen Negative Negative SARS-CoV-2 Antigen (Rapid) Negative NEGATIVE Test 08/07/24 23:42 08/07/24 21:01 08/07/24 20:42 Range/Units Urine Color Light-yellow Yellow Urine Clarity Clear Clear Urine pH 5.0 5.0-9.0 Urine Specific [place] 1.009 1.001-1.035 Urine Protein Negative Negative Urine Ketones Trace Negative Urine Blood Negative Negative /uL Urine Nitrite Negative Negative Urine Bilirubin Negative Negative Urine Urobilinogen Normal Negative mg/dL Urine Leukocyte Esterase 2+ Negative /uL Urine RBC 1 0 - 4 /hpf Urine Microscopic WBC 1 0-5 /HPF Urine Squamous Epithelial Cells Few <5 /hpf Urine Bacteria Few H None Seen /hpf Urine Mucus Few None Seen Urine Glucose Normal Normal mg/dL Troponin I High Sensitivity 41 *H </=34 ng/L Urine Opiates Screen Neg NEGATIVE Urine Fentanyl Screen Neg NEGATIVE Urine Barbiturates Screen Neg NEGATIVE Urine Phencyclidine Screen Neg NEGATIVE Urine Amphetamines Screen Neg NEGATIVE Urine Benzodiazepines Screen Neg NEGATIVE Urine Cocaine Screen Neg NEGATIVE Urine Cannabinoids Screen Neg NEGATIVE Venous Blood pH 7.445 H 7.320-7.430 Venous Blood pCO2 at Patient Temp 35.1 L 38.0-54.0 mmHg Venous Blood pO2 at Patient Temp < 36.5 23.0-48.0 mmHg Venous Blood HCO3 23.6 22.0-29.0 mmol/L Venous Bld O2 Saturation (Measured) 50.5 L 60.0-85.0 % Venous Blood Base Excess -0.1 -2.0-3.0 mmol/L Venous Blood Total Hemoglobin 11.2 L 12.0-16.0 g/dL Venous Blood Oxyhemoglobin 49.7 0.0-79.0 % Venous Blood Carboxyhemoglobin 1.3 0.5-1.5 % Venous Blood Methemoglobin 0.3 0.0-1.5 % Blood Gas Comments Hemoglobin A1c 5.4 <5.7 % A1C Phosphorus Level 2.3 L 2.4-5.1 mg/dL Magnesium Level 1.5 L 1.6-2.6 mg/dL Direct Bilirubin 0.4 H <0.3 mg/dL B-Type Natriuretic Peptide 74.32 0-100 pg/mL Thyroid Stimulating Hormone (TSH) 2.14 0.55-4.78 uIU/mL Assessment Acute pulmonary emboli, right-sided Multifocal pneumonia with recent COVID-19 Acute hypoxic respiratory failure Left lower extremity DVT/cellulitis Ulcerative colitis Rheumatoid arthritis Scoliosis Hypothyroidism Plan/Recommendation (Dr. Oconnell) The patient will undergo a transthoracic echocardiogram to evaluate cardiac function and rule out right ventricular strain. In the meantime, continue heparin drip per pharmacy protocol. The patient does not appear to be hemodynamically stable for invasive cardiac procedures at this time. We will further discuss with Dr. Oconnell for further evaluation. In the meantime, replete electrolytes as necessary and continue ABX therapy per primary care team. Monitor ECG changes closely given sinus tachycardia with a HR in the 130s bpm. Continue Pulmonology recommendations. Thank you for allowing us to participate in this patient's care. Please call if you have any questions or concerns. Critical care time: 40 min. This medical document was created using an electronic medical record system with voice recognition software and computerized dictation system. Although this document has been carefully reviewed, there might still be some phonetic and typographical errors. Occasional wrong-word or ``sound-alike substitutions may have occurred due to the inherent limitations of voice recognition software. These areas are purely typographical due to imperfections of the software programs and do not reflect any compromise in the patient's medical care. Please read the chart carefully and recognize, using context, where these substitutions have occurred. Plan discussed with: Patient, Other NYHA Physical activity limitations: NA Date of Service: Aug 08, 2024 Billing Provider: MIRNA BEE [facility] Cardiology Common Codes: 15896-[id number] CARE 30-74 MIN MELODY OCONNELL MD 08/08/24 1447: Family History: Patient reports no known family medical history. Allergies: Coded Allergies: Aspirin (Verified Allergy, Unknown, 09/08/19) Clarithromycin (Verified Allergy, Unknown, 09/08/19) Clindamycin (Verified Allergy, Unknown, 09/08/19) Doxycycline (Verified Allergy, Unknown, 09/08/19) Lactose Intolerance (GI) (Verified Allergy, Unknown, 07/22/24) Levofloxacin (Verified Allergy, Unknown, 09/08/19) Metoprolol (Verified Allergy, Unknown, 09/08/19) Nitrofurantoin (Verified Allergy, Unknown, 09/08/19) Penicillins (Verified Allergy, Unknown, 09/08/19) Sulfa Drugs (Verified Allergy, Unknown, 09/08/19) Sulfamethoxazole w/Trimethoprim (Verified Allergy, Unknown, 09/08/19) Tetracycline (Verified Allergy, Unknown, 09/08/19) Uncoded Allergies: NITRO (Allergy, Unknown, 07/14/24) Home Meds Active Scripts Prednisone (Prednisone) 10 Mg Tab, 10 MG PO QAM for 30 Days, #30 MG Prov:BETTY ROGER MD 07/27/24 Prednisone (Prednisone) 20 Mg Tab, 20 MG PO QAM for 7 Days, #14 MG Prov:BETTY ROGER MD 07/27/24 Mesalamine (Mesalamine Dr) 800 Mg Tab, 800 MG PO TID for 30 Days, #90 TAB 2 Refills Prov:BETTY ROGER MD 07/27/24 Cholestyramine (Cholestyramine) Pow, 4 GM PO DAILY for 30 Days, #30 POW Prov:BETTY ROGER MD 07/27/24 Loperamide Hcl (Imodium) 2 Mg Cp, 2 MG PO Q4HR PRN, #30 CAP Prov:JOSIANE ORTIZ MD 07/18/24 Mesalamine (Lialda) 1.2 Gm Tab, 1.2 GM PO BID, #30 TAB Prov:JOSIANE ORTIZ MD 07/18/24 Methylprednisolone (Medrol Dosepak) 4 Mg Jp, 4 MG PO UD, #21 TAB UAD Prov:JOSIANE ORTIZ MD 07/18/24 Reported Medications Cyanocobalamin (Vitamin B-12) 1,000 Mcg Tab, 1 TAB PO DAILY for 60 Days, #60 07/22/24 Adalimumab (Humira Pen) 40 Mg/0.8 Ml Inj, MG SC QWEEKLY for 56 Days, #8 07/22/24 Leflunomide (Arava) 20 Mg Tab, 1 TAB PO DAILY for 90 Days, #90 07/15/24 Ibuprofen Micronized (MOTRIN TABLET) 600 Mg Tb, 200 MG PO QID, #40 TAB *Black box warning-NSAIDS can increase risk of [place] & hypertension, GI irritation, ulceration, bleed, perferation. Do not use post cardiac surgery. Use short duration/lowest effective dose. 07/15/24 Atorvastatin Calcium (ATORVASTATIN CALCIUM) 20 Mg Tab, 1 TAB PO DAILY, #30 TAB 5 Refills 09/08/19 Levothyroxine Sodium (Levothyroxine Sodium) 88 Mcg Tab, 88 MCG PO QAM for 30 Days, MCG 09/08/19 Dicyclomine Hcl (Dicyclomine Hcl) 20 Mg Tab, 1 TAB PO QID PRN for ABD CRAMPING for 30 Days, #30 09/08/19 Pantoprazole Sodium Sesquihydr (Protonix) 40 Mg Tab, 40 MG PO DAILY, #30 TAB 09/08/19 Estrogens, Conjugated (PREMARIN TABLET) 0.625 Mg Tb, 1 TAB PO DAILY for 90 Days, #90 09/08/19 Plan/Recommendation poor prognosis, minimal ambulation ?phlegmasia to Left leg with dvt o2 cosnider lovenox guarded prognosis MIRNA BEE Aug 08, 2024 12:40 MELODY OCONNELL MD Aug 08, 2024 14:47
[2024-08-08] MEDS: POTASSIUM EFFERVESENT TAB 25 MEQ PO ONE (12:45)
--- NOTE | 2024-08-08 14:13 | DVHINCON2 ---
Date of service: Aug 08, [address] Moore Reason for Consultation Acute respiratory failure History of Present Illness History Source: Patient Exam Limitations: No limitations HPI Patient is a 74-year old lady with a history of ulcerative colitis, rheumatoid arthritis, dyslipidemia and recent covid who presented with sudden onset of shortness of breath. Was seen in the emergency room where CTA of the chest demonstrated acute pulmonary embolism and ultrasound revealed DVT of the left lower extremity. Patient was started on Heparin drip and pulmonology was consulted to assist in management. Home Meds Active Scripts Prednisone (Prednisone) 10 Mg Tab, 10 MG PO QAM for 30 Days, #30 MG Prov:BETTY ROGER MD 07/27/24 Prednisone (Prednisone) 20 Mg Tab, 20 MG PO QAM for 7 Days, #14 MG Prov:BETTY ROGER MD 07/27/24 Mesalamine (Mesalamine Dr) 800 Mg Tab, 800 MG PO TID for 30 Days, #90 TAB 2 Refills Prov:BETTY ROGER MD 07/27/24 Cholestyramine (Cholestyramine) Pow, 4 GM PO DAILY for 30 Days, #30 POW Prov:BETTY ROGER MD 07/27/24 Loperamide Hcl (Imodium) 2 Mg Cp, 2 MG PO Q4HR PRN, #30 CAP Prov:JOSIANE ORTIZ MD 07/18/24 Mesalamine (Lialda) 1.2 Gm Tab, 1.2 GM PO BID, #30 TAB Prov:JOSIANE ORTIZ MD 07/18/24 Methylprednisolone (Medrol Dosepak) 4 Mg Jp, 4 MG PO UD, #21 TAB UAD Prov:JOSIANE ORTIZ MD 07/18/24 Reported Medications Cyanocobalamin (Vitamin B-12) 1,000 Mcg Tab, 1 TAB PO DAILY for 60 Days, #60 07/22/24 Adalimumab (Humira Pen) 40 Mg/0.8 Ml Inj, MG SC QWEEKLY for 56 Days, #8 07/22/24 Leflunomide (Arava) 20 Mg Tab, 1 TAB PO DAILY for 90 Days, #90 07/15/24 Ibuprofen Micronized (MOTRIN TABLET) 600 Mg Tb, 200 MG PO QID, #40 TAB *Black box warning-NSAIDS can increase risk of [place] & hypertension, GI irritation, ulceration, bleed, perferation. Do not use post cardiac surgery. Use short duration/lowest effective dose. 07/15/24 Atorvastatin Calcium (ATORVASTATIN CALCIUM) 20 Mg Tab, 1 TAB PO DAILY, #30 TAB 5 Refills 09/08/19 Levothyroxine Sodium (Levothyroxine Sodium) 88 Mcg Tab, 88 MCG PO QAM for 30 Days, MCG 09/08/19 Dicyclomine Hcl (Dicyclomine Hcl) 20 Mg Tab, 1 TAB PO QID PRN for ABD CRAMPING for 30 Days, #30 09/08/19 Pantoprazole Sodium Sesquihydr (Protonix) 40 Mg Tab, 40 MG PO DAILY, #30 TAB 09/08/19 Estrogens, Conjugated (PREMARIN TABLET) 0.625 Mg Tb, 1 TAB PO DAILY for 90 Days, #90 09/08/19 Past Medical History Cardiac: No pertinent Hx Pulmonary: No pertinent Hx Central Nervous System: No pertinent Hx GI: No pertinent Hx Hemotology/Oncology: No pertinent Hx Hepatobiliary: No pertinent Hx Psychiatric: No pertinent Hx Musculoskeletal: No pertinent Hx Rheumotologic: Rheumatoid arthritis Infectious Disease: No peritnent Hx ENT: No pertinent Hx Renal/: No pertinent Hx Endocrine: No pertinent Hx Dermatology: No pertinent Hx Past Surgical History: No pertinent Hx Patient Family History: Patient reports no known family medical history. Smoker: No Hx (Negative) Alocohol: None Drugs: None Lives with: With family Domestic Violence: Neg Review of Systems Constitutional: No symptom reported Ears, Nose, & Throat: No symptom reported Eyes: No symptom reported Pulmonary/Respiratory: Dyspnea Cardiovascular: No symptom reported Gastrointestinal: No symptom reported Genitourinary: No symptom reported Musculoskeletal: No symptom reported Skin: No symptom reported Psychiatric: No symptom reported Endocrine: No symptom reported Hemotologic/Lymphatic: No symptom reported H&P Exam Vital Signs Vital Signs Date Time Temp Pulse Resp B/P (MAP) Pulse Ox O2 Delivery O2 Flow Rate FiO2 08/08/24 12:59 98.6 130 21 143/72 (95) 95 98.6 08/08/24 11:32 Nasal Cannula* 2 28 General Appeara: Well developed, Well nourished, Normal Appearance Head Exam: Normal inspection Neck Exam: Normal inspection, Non-tender, Normal alignment Eye Exam: bilateral eye Normal inspection, bilateral eye PERRL, bilateral eye EOMI Ear Exam: bilateral ear Auricle normal, bilateral ear Canal normal, bilateral ear TM normal Nasal Exam: Normal inspection Mouth: Normal Inspection Pulmonary/Respiratory: Normal inspection, Normal breath sounds, Chest non- tender, Lungs clear Cardiovascular/Chest: Normal inspection, Regular rate, Normal Rhythm Peripheral Pulses: 4+ Radial (R), 4+ Radial (L), 4+ Brachial (R), 4+ Brachial (L) Abdominal Exam: Normal bowel sounds Labs/Xrays Labs Test 08/08/24 09:57 08/08/24 08:46 08/08/24 00:20 08/07/24 23:54 Range/Units Blood Gas Specimen Type Arterial Blood Gas Sample Site Left radial Blood Gas Patient Temperature 37.0 Arterial Blood Date Drawn [id number] Arterial Blood pH 7.505 H 7.350-7.450 Arterial Blood Partial Pressure CO2 26.4 L 32.0-45.0 mmHg Arterial Blood Partial Pressure O2 53.3 *L 83.0-108.0 mmHg Arterial Blood HCO3 20.4 L 21.0-28.0 mmol/L Arterial Blood Oxygen Saturation 88.8 L 94.0-98.0 % Arterial Blood Base Excess -1.7 -2.0-3.0 mmol/L Arterial Blood Oxyhemoglobin 88.1 L 94.0-98.0 % Arterial Blood Carboxyhemoglobin 0.5 0.5-1.5 % Arterial Blood Methemoglobin 0.3 0.0-1.5 % Mian Test Yes Blood Gas Total Hemoglobin 10.80 L 12.0-16.0 g/dL Blood Gas Liter Flow 0.00 Blood Gas Modality Room air FiO2 % 21.0 Blood Gas Critical Value Read Back Yes Blood Gas Notified Whom Santiago pennington Blood Gas Notified Time [id number] Blood Gas Notified By Jed francis White Blood Count 6.6 4.4-10.8 10^3/uL Red Blood Count 3.47 L 4.0-5.20 10^6/uL Hemoglobin 11.0 L 12.2-16.2 g/dL Hematocrit 33.5 L 36.0-46.0 % Mean Corpuscular Volume 96.4 80.0-100.0 fL Mean Corpuscular Hemoglobin 31.6 28.0-32.0 pg Mean Corpuscular Hemoglobin Concent 32.8 32.0-36.0 g/dL Red Cell Distribution Width 14.5 H 11.8-14.3 % Platelet Count 117 L 140-450 10^3/uL Mean Platelet Volume 7.8 6.9-10.8 fL Neutrophils (%) (Auto) 76.6 37.0-80.0 % Lymphocytes (%) (Auto) 14.8 10.0-50.0 % Monocytes (%) (Auto) 6.6 0.0-12.0 % Eosinophils (%) (Auto) 1.4 0.0-7.0 % Basophils (%) (Auto) 0.6 0.0-2.0 % Neutrophils # (Auto) 5.1 1.6-8.6 10 ^3/uL Lymphocytes # (Auto) 1.0 0.4-5.4 10 ^3/uL Monocytes # (Auto) 0.4 0-1.3 10 ^3/uL Eosinophils # (Auto) 0.1 0-0.8 10 ^3/uL Basophils # (Auto) 0 0-0.2 10 ^3/uL Nucleated Red Blood Cells 0.2 % Prothrombin Time 12.0 H 9.3-11.8 sec Prothrombin Time INR 1.15 0.9-1.15 Activated Partial Thromboplast Time > 139.0 *H 24.5-34.5 SEC Sodium Level 133 L 136-145 mmol/L Potassium Level 3.3 L 3.5-5.1 mmol/L Chloride Level 101 98-107 mmol/L Carbon Dioxide Level 22 20-31 mmol/L Anion Gap 10 5-15 Blood Urea Nitrogen 7 L 9-23 mg/dL Creatinine 0.57 0.550-1.02 mg/dL Glomerular Filtration Rate Calc 96 >90 mL/min BUN/Creatinine Ratio 12.3 10.0-20.0 Serum Glucose 74 74-106 mg/dL Calcium Level 8.0 L 8.7-10.4 mg/dL Total Bilirubin 0.8 0.2-1.0 mg/dL Aspartate Amino Transferase (AST) 21 13-40 U/L Alanine Aminotransferase (ALT) 27 7-40 U/L Alkaline Phosphatase 63 46-116 U/L Total Protein 5.1 L 5.7-8.2 g/dL Albumin 3.0 L 3.2-4.8 g/dL Lactic Acid Level 0.8 0.4-2.0 mmol/L Influenza Type A Antigen Negative Negative Influenza Type B Antigen Negative Negative SARS-CoV-2 Antigen (Rapid) Negative NEGATIVE Test 08/07/24 23:42 08/07/24 21:01 08/07/24 20:42 Range/Units Urine Color Light-yellow Yellow Urine Clarity Clear Clear Urine pH 5.0 5.0-9.0 Urine Specific [place] 1.009 1.001-1.035 Urine Protein Negative Negative Urine Ketones Trace Negative Urine Blood Negative Negative /uL Urine Nitrite Negative Negative Urine Bilirubin Negative Negative Urine Urobilinogen Normal Negative mg/dL Urine Leukocyte Esterase 2+ Negative /uL Urine RBC 1 0 - 4 /hpf Urine Microscopic WBC 1 0-5 /HPF Urine Squamous Epithelial Cells Few <5 /hpf Urine Bacteria Few H None Seen /hpf Urine Mucus Few None Seen Urine Glucose Normal Normal mg/dL Troponin I High Sensitivity 41 *H </=34 ng/L Urine Opiates Screen Neg NEGATIVE Urine Fentanyl Screen Neg NEGATIVE Urine Barbiturates Screen Neg NEGATIVE Urine Phencyclidine Screen Neg NEGATIVE Urine Amphetamines Screen Neg NEGATIVE Urine Benzodiazepines Screen Neg NEGATIVE Urine Cocaine Screen Neg NEGATIVE Urine Cannabinoids Screen Neg NEGATIVE Venous Blood pH 7.445 H 7.320-7.430 Venous Blood pCO2 at Patient Temp 35.1 L 38.0-54.0 mmHg Venous Blood pO2 at Patient Temp < 36.5 23.0-48.0 mmHg Venous Blood HCO3 23.6 22.0-29.0 mmol/L Venous Bld O2 Saturation (Measured) 50.5 L 60.0-85.0 % Venous Blood Base Excess -0.1 -2.0-3.0 mmol/L Venous Blood Total Hemoglobin 11.2 L 12.0-16.0 g/dL Venous Blood Oxyhemoglobin 49.7 0.0-79.0 % Venous Blood Carboxyhemoglobin 1.3 0.5-1.5 % Venous Blood Methemoglobin 0.3 0.0-1.5 % Blood Gas Comments Hemoglobin A1c 5.4 <5.7 % A1C Phosphorus Level 2.3 L 2.4-5.1 mg/dL Magnesium Level 1.5 L 1.6-2.6 mg/dL Direct Bilirubin 0.4 H <0.3 mg/dL B-Type Natriuretic Peptide 74.32 0-100 pg/mL Thyroid Stimulating Hormone (TSH) 2.14 0.55-4.78 uIU/mL Assessment/Plan Plan Impression Acute hypoxemic respiratory failure Acute pulmonary embolism Left lower extremity DVT Pneumonia Patient seen and examined Events Low oxygen requirements On 3 liters nasal cannula On Heparin drip for DVT/PE Labs and imaging reviewed CTA of the chest reviewed Positive for acute pulmonary emboli in multiple right pulmonary arteries as described. No right heart strain. Patchy ground-glass and consolidative airspace opacities bilaterally as well as tiny nodular and tree-in-bud opacities in the lungs which could reflect multifocal atypical pneumonia. Trace bilateral pleural effusions. Management Supplemental oxygen Titrate to maintain sats 90% or above Incentive spirometry Empiric antibiotics De-escalate based on cultures Bronchodilators Monitor renal function Monitor electrolytes Supplement as needed Continue anticoagulation therapy Okay to transition to oral anticoagulant DVT prophylaxis Plan discussed with: Patient MARLENI MCGREGOR MD Aug 08, 2024 14:13
--- NOTE | 2024-08-08 14:17 | DVHSR ---
APPROVED REPORT EXAM: LIMITED Two-dimensional and M-mode echocardiogram with Doppler and color Doppler. Blood Pressure: 122/64 mmHg INDICATION PE R/O RV strain RISK FACTORS Height: 5'3", Weight: 156 DIMENSIONS LVDd3.2 (3.8-5.7cm)LA (2D) (1.9-4.0cm)Aortic Root (2.0-3.7cm) LVDs1.9 (2.5-4.0cm)LA (MM) (1.9-4.0cm)Aortic Cusp Exc (1.5-2.0cm) EF (%) 74.0 (55-70%)Rt. Atrium3.6 (1.9-4.0cm)Asc. Aorta cm IVSd1.1 (0.7-1.1cm)RV (D) (1.8-2.4cm) PWd1.0 (0.7-1.1cm) Mitral Valve MitralMitral Stenosis E/A ratio0.02D MVAcm2 Tricuspid Valve TR Velocity3.09m/s [id number] Other Information Quality : Technically LimitedRhythm : Tachycardia Technically limited study due to body habitus, patient sitting up. Limited repeat to eval RV. Conclusion normal biv function lvef 80% normal rv function limited study
[2024-08-08] MEDS: VANCOMYCIN 1GM/200ML PM 200 ML IV SCH (14:18)
[2024-08-08] MEDS ORDERED: POTASSIUM CHLORIDE 40 MEQ in SOD CHL 0.45% 1,000 ML IV SCH (15:15)
[2024-08-08 15:17] LABS: INR 1.2 (0.9-1.15); Prothrombin Time 12.5 sec (9.3-11.8)
[2024-08-08 15:19] LABS: Partial Thromboplastin Time 96.1 SEC (24.5-34.5)
--- NOTE | 2024-08-08 15:37 | DVHPN2 ---
Subjective Patient short of breath with nonproductive cough. Reviewed: Care Plan, H&P, Labs Changes from previous H/P or p: No Changes General: Per HPI Objective Vitals Vital Signs Date Time Temp Pulse Resp B/P (MAP) Pulse Ox O2 Delivery O2 Flow Rate FiO2 08/08/24 12:59 98.6 130 21 143/72 (95) 95 98.6 08/08/24 11:32 Nasal Cannula* 2 28 Intake/Output Intake and Output 08/08/24 07:00 Output Total 500 ml Balance -500 ml Output Urine Total 500 ml General Appearance: Alert, Oriented X3, Cooperative, moderate distress HEENT: Atraumatic, PERRLA Lungs: Other (Decreased breath sounds at bases) Cardiovascular: Normal S1, Normal S2, Other (Sinus tachycardia) Abdomen: Normal bowel sounds, Soft, No tenderness, No hepatospenomegaly, No masses Genitourinary: No Apparent Abnormalities Musculoskeletal: Normal sensory function, Normal motor function Neuro: Normal speech Psych/Mental Status: Mental status NL, Mood NL Medications Current Medications Medications Dose Ordered Sig/Quinn Route Start Time Stop Time Status Last Admin Dose Admin Acetaminophen 650 mg Q6HP PRN PO 08/07/24 23:45 Ondansetron HCl 4 mg Q4HP PRN IV 08/07/24 23:45 Morphine Sulfate 2 mg Q4HPRN PRN IV 08/07/24 23:45 Meropenem 50 ml @ 17 mls/hr Q8HR IV 08/08/24 06:00 Vancomycin HCl 0 ml @ 0 mls/hr UD IV 08/07/24 23:45 Clotrimazole 1 applic Q12HR [facility] 08/08/24 10:00 Ipratropium [place] 0.5 mg Q6HWA [facility] 08/08/24 06:00 08/08/24 11:31 0.5 MG Levalbuterol HCl 0.625 mg Q6HR [facility] 08/08/24 06:00 08/08/24 11:32 0.625 MG Methylprednisolone Sodium Succinate 40 mg BID IV 08/08/24 10:00 Atorvastatin Calcium 20 mg DAILY PO 08/08/24 10:00 08/08/24 10:46 20 MG Levothyroxine Sodium 88 mcg QAM PO 08/08/24 07:00 08/08/24 06:14 88 MCG Pantoprazole Sodium 40 mg DAILY PO 08/08/24 10:00 08/08/24 10:46 40 MG Cholestyramine Resin 4 gm DAILY PO 08/08/24 10:00 08/08/24 10:46 4 GM Cyanocobalamin 1,000 mcg DAILY PO 08/08/24 10:00 08/08/24 10:46 1,000 MCG Mesalamine 800 mg TID PO 08/08/24 06:00 08/08/24 14:32 800 MG Vancomycin HCl 200 ml @ 160 mls/hr Q12H IV 08/08/24 13:00 08/08/24 14:18 160 MLS/HR Potassium Chloride 40 meq/ Sodium Chloride 1,020 ml @ 100 mls/hr [id number] IV 08/08/24 15:15 08/09/24 01:26 UNV Enoxaparin Sodium 70 mg Q12HR SC 08/08/24 22:00 UNV Laboratory Results Laboratory Tests 08/08/24 08:46 Chemistry Test 08/07/24 20:42 08/08/24 08:46 Albumin 3.0 g/dL (3.2-4.8) L 3.0 g/dL (3.2-4.8) L Calcium Level 8.3 mg/dL (8.7-10.4) L 8.0 mg/dL (8.7-10.4) L Magnesium Level 1.5 mg/dL (1.6-2.6) L Phosphorus Level 2.3 mg/dL (2.4-5.1) L Total Protein 4.8 g/dL (5.7-8.2) L 5.1 g/dL (5.7-8.2) L Coagulation Test 08/07/24 20:42 08/08/24 08:46 08/08/24 13:56 Prothrombin Time 10.8 sec (9.3-11.8) 12.0 sec (9.3-11.8) H 12.5 sec (9.3-11.8) H Prothrombin Time INR 1.02 (0.9-1.15) 1.15 (0.9-1.15) 1.20 (0.9-1.15) H Activated Partial Thromboplast Time 24.8 SEC (24.5-34.5) > 139.0 SEC (24.5-34.5) *H 96.1 SEC (24.5-34.5) *H Cardiac Markers Test 08/07/24 20:42 B-Type Natriuretic Peptide 74.32 pg/mL (0-100) LFT Test 08/07/24 20:42 08/08/24 08:46 Alanine Aminotransferase (ALT) 32 U/L (7-40) 27 U/L (7-40) Alkaline Phosphatase 63 U/L (46-116) 63 U/L (46-116) Aspartate Amino Transferase (AST) 28 U/L (13-40) 21 U/L (13-40) Direct Bilirubin 0.4 mg/dL (<0.3) H Total Bilirubin 1.1 mg/dL (0.2-1.0) H 0.8 mg/dL (0.2-1.0) HgA1c, TSH Test 08/07/24 20:42 Hemoglobin A1c 5.4 % A1C (<5.7) Thyroid Stimulating Hormone (TSH) 2.14 uIU/mL (0.55-4.78) Urinalysis Test 08/07/24 23:42 Urine Color Light-yellow (Yellow) Urine Clarity Clear (Clear) Urine pH 5.0 (5.0-9.0) Urine Specific [place] 1.009 (1.001-1.035) Urine Protein Negative (Negative) Urine Ketones Trace (Negative) Urine Blood Negative /uL (Negative) Urine Nitrite Negative (Negative) Urine Bilirubin Negative (Negative) Urine Urobilinogen Normal mg/dL (Negative) Urine Leukocyte Esterase 2+ /uL (Negative) Urine RBC 1 /hpf (0 - 4) Urine Microscopic WBC 1 /HPF (0-5) Urine Squamous Epithelial Cells Few /hpf (<5) Urine Bacteria Few /hpf (None Seen) H Urine Mucus Few (None Seen) Urine Glucose Normal mg/dL (Normal) Blood Gas Results Test 08/07/24 21:01 08/08/24 09:57 FiO2 % 28.0 21.0 Arterial Blood pH 7.505 (7.350-7.450) Assessment/Plan Assessment/Plan Impression: -acute hypoxic respiratory failure -pulmonary embolism to right lung -NSTEMI type 2 secondary to sepsis -DVT to left lower extremity -Crohn's disease -ulcerative colitis -hypokalemia Plan: -patient with severe tachypnea, tachycardia. Patient will be upgraded to step- down ICU status -continue bronchodilators -continue empiric antibiotic therapy with Merrem panel and vancomycin -stop heparin drip, transitioned to Lovenox -stop Solu-Medrol given hospitalist currently out of this medication. Start prednisone 20 mg p.o. daily -check ESR, CRP -repeat labs, chest x-ray in a.m. -long discussion made with the patient's family were bedside. All questions answered Critical care time spent with patient discussing and formulating plan of care: 40 minutes. This does not include time spent performing procedures. This medical document was created using an electronic medical record system with [employer] dictation system. Although this document has been carefully reviewed, there may still be some phonetic and typographical errors. These areas are purely typographical due to imperfections of the software programs, and do not reflect any compromise in the patient's medical care. Plan discussed with: Patient, Other (RN) My Orders Orders - CLEVELAND CASTANON NP Procedure Category Date Status Time Regular Diet DIET 08/08/24 Transmitted Lunch Sod Chl 0.45% PHA 08/08/24 Logged (Sodi... W/Potassium 15:15 Enoxaparin Sodium PHA 08/08/24 Logged (Lovenox) 22:00 Guaifenesin-Dextromet PHA 08/08/24 Transmitted Liquid (Robitussin 15:15 Erythrocyte LAB 08/08/24 Transmitted Sedimentation Rate 15:13 C-Reactive Protein LAB 08/08/24 Transmitted 15:13 Basic Metabolic Panel LAB 08/09/24 Verified 04:00 Chest Portable XY 08/09/24 Transmitted 04:00 Prednisone Tablet PHA 08/09/24 Transmitted 10:00 Date of Service: Aug 08, 2024 Billing Provider: CLEVELAND CASTANON NP Common Visit Codes: [id number] CARE 30-74 MIN CLEVELAND CASTANON NP Aug 08, 2024 15:37
[2024-08-08] MEDS: MAGNESIUM SULFATE 1GM/100ML 100 ML IV ONE (18:15)
[2024-08-08] MEDS: POTASSIUM CHLORIDE 40 MEQ in SOD CHL 0.45% 1,000 ML IV SCH (20:00)
[2024-08-08] MEDS: ENOXAPARIN SOD 80 MG/0.8ML SYRINGE SC SCH (22:05)
[2024-08-08] MEDS: guaiFENesin-DM 100/10mg/5ml SYR PO PRN (22:10)
[2024-08-08] MEDS: POTASSIUM CHL 20MEQ/100ML 100 ML IV ONE (22:11)
[2024-08-08] MEDS: POTASSIUM CHL 20MEQ/50ML 50 ML IV ONE (22:12)
[2024-08-09] VITALS (34 sets, daily range): BP systolic 93–137; BP diastolic 48–76; PULSE 78–129; RESP 15–25; TEMP 97.6–98.5; O2SAT 92–100
[2024-08-09 06:13] LABS: Basophils # (auto) 0 10 ^3/uL (0-0.2); Basophils % (auto) 0.2 % (0.0-2.0); Eosinophils # (auto) 0 10 ^3/uL (0-0.8); Hemoglobin 10.1 g/dL (12.2-16.2); Lymphocytes # (auto) 0.3 10 ^3/uL (0.4-5.4); Lymphocytes % (auto) 4.3 % (10.0-50.0); Mean Corpuscular Hemoglobin 32.7 pg (28.0-32.0); Mean Corpuscular Hgb Conc. 33.5 g/dL (32.0-36.0); Mean Corpuscular Volume 97.6 fL (80.0-100.0); Monocytes # (auto) 0.1 10 ^3/uL (0-1.3); Monocytes % (auto) 1.5 % (0.0-12.0); Neutrophils # (auto) 6.6 10 ^3/uL (1.6-8.6); Platelet Count (auto) 135 10^3/uL (140-450); Red Blood Cells 3.08 10^6/uL (4.0-5.20); Red Cell Distribution Width 14.7 % (11.8-14.3)
[2024-08-09 06:24] LABS: Anion Gap 10 (5-15); Carbon Dioxide 21 mmol/L (20-31); Chloride 105 mmol/L (98-107); Potassium 3.8 mmol/L (3.5-5.1)
[2024-08-09 06:30] LABS: BUN/Creatinine Ratio 16.4 (10.0-20.0); Magnesium 2.1 mg/dL (1.6-2.6)
--- NOTE | 2024-08-09 07:01 | DVH ---
CHEST RADIOGRAPH Indication: PNa Technique: Single frontal view of the chest was obtained COMPARISON: XY CHEST PORTABLE on DOS: 08/07/24, XY CHEST PORTABLE on DOS: 07/24/24, XY CHEST PORTABLE o n DOS: 07/22/24, XY CHEST PORTABLE on DOS: 07/20/24, XY CHEST PORTABLE on DOS: 07/16/24 FINDINGS: Lines and Tubes: None Lungs: Diffuse increased interstitial prominence. Pleura: No effusion. No pneumothorax. Cardiomediastinal contours: Unremarkable Bones: Unremarkable IMPRESSION: Unchanged to slightly increased multifocal airspace disease.
[2024-08-09 07:05] LABS: Blood Urea Nitrogen 9 mg/dL (9-23); Calcium 7.8 mg/dL (8.7-10.4); Glucose 120 mg/dL (74-106); Sodium 136 mmol/L (136-145)
[2024-08-09] MEDS: predniSONE 20 MG TAB PO SCH (08:43)
--- NOTE | 2024-08-09 09:37 | DVHPN2 ---
Consult Progress Note Date Seen: Aug 09, 2024 Subjective Patient reports: Feels better Other Systems: States feeling better Objective vital signs Vital Sign Date Time Temp Pulse Resp B/P (MAP) Pulse Ox O2 Delivery O2 Flow Rate FiO2 08/09/24 08:00 97.7 98 22 123/57 (79) 97 97.7 08/09/24 05:36 Nasal Cannula 1.0 08/09/24 05:36 24 Total Intake and Output 08/08/24 08/08/24 08/09/24 15:00 23:00 07:00 Intake Total 260 ml 300 ml Output Total 900 ml 1850 ml Balance -640 ml -1550 ml medications Current Medications Medications Dose Ordered Sig/Quinn Route Start Time Stop Time Status Last Admin Dose Admin Acetaminophen 650 mg Q6HP PRN PO 08/07/24 23:45 Ondansetron HCl 4 mg Q4HP PRN IV 08/07/24 23:45 Morphine Sulfate 2 mg Q4HPRN PRN IV 08/07/24 23:45 Meropenem 50 ml @ 17 mls/hr Q8HR IV 08/08/24 06:00 08/09/24 05:50 17 MLS/HR Vancomycin HCl 0 ml @ 0 mls/hr UD IV 08/07/24 23:45 Clotrimazole 1 applic Q12HR [facility] 08/08/24 10:00 Ipratropium [place] 0.5 mg Q6HWA [facility] 08/08/24 06:00 08/09/24 05:36 0.5 MG Levalbuterol HCl 0.625 mg Q6HR [facility] 08/08/24 06:00 08/09/24 05:36 0.625 MG Methylprednisolone Sodium Succinate 40 mg BID IV 08/08/24 10:00 08/08/24 22:04 40 MG Atorvastatin Calcium 20 mg DAILY PO 08/08/24 10:00 08/09/24 08:43 20 MG Levothyroxine Sodium 88 mcg QAM PO 08/08/24 07:00 08/09/24 06:36 88 MCG Pantoprazole Sodium 40 mg DAILY PO 08/08/24 10:00 08/09/24 08:43 40 MG Cholestyramine Resin 4 gm DAILY PO 08/08/24 10:00 08/08/24 10:46 4 GM Cyanocobalamin 1,000 mcg DAILY PO 08/08/24 10:00 08/09/24 08:43 1,000 MCG Mesalamine 800 mg TID PO 08/08/24 06:00 08/09/24 05:50 800 MG Vancomycin HCl 200 ml @ 160 mls/hr Q12H IV 08/08/24 13:00 08/09/24 01:06 160 MLS/HR Enoxaparin Sodium 70 mg BID SC 08/08/24 22:00 08/09/24 08:44 70 MG Guaifenesin/ Dextromethorphan 10 ml Q4HP PRN PO 08/08/24 15:15 08/08/24 22:10 10 ML Prednisone 20 mg DAILY PO 08/09/24 10:00 08/09/24 08:43 20 MG Examination: LUNGS:Abnormal (On O2 via NC), CVS:Normal, MSK:Abnormal (BLE edema L>R. LLE erythema), NEURO:Normal laboratory and microbiology Laboratory Tests 08/09/24 05:16 Test 08/09/24 05:16 Range/Units Serum Glucose 120 H 74-106 mg/dL Problem List/Assessment/Plan Problem List/Assessment/Plan Acute pulmonary emboli, right-sided Left lower extremity DVT/cellulitis/phlegmasia Multifocal pneumonia with recent COVID-19 Acute hypoxic respiratory failure Ulcerative colitis Rheumatoid arthritis Scoliosis Hypothyroidism Plan/Recommendation (Dr. Auguste) Transthoracic echocardiogram revealed an optimal LVEF and no evidence of right- heart strain. Continue therapeutic Lovenox. There are no invasive cardiac procedures such a thrombectomies recommended at this time. Maximize medical management including repletion of electrolytes as necessary and ABX therapy per primary care team. Sinus tachycardia has improved. There is no further cardiac work up indicated at this time. Kindly call if in need to re-consult. Thank you for allowing us to participate in this patient's care. Critical care time: 30 min. This medical document was created using an electronic medical record system with voice recognition software and computerized dictation system. Although this document has been carefully reviewed, there might still be some phonetic and typographical errors. Occasional wrong-word or ``sound-alike substitutions may have occurred due to the inherent limitations of voice recognition software. These areas are purely typographical due to imperfections of the software programs and do not reflect any compromise in the patient's medical care. Please read the chart carefully and recognize, using context, where these substitutions have occurred. Plan discussed with: Patient, Other Date of Service: Aug 09, 2024 Billing Provider: MIRNA BEE Cardiology Common Codes: [id number] CARE 30-74 MIN MIRNA BEE Aug 09, 2024 09:37
[2024-08-09] MEDS: LOPERAMIDE HCL 2 MG CAP/TAB PO PRN (10:00)
--- NOTE | 2024-08-09 10:25 | DVHPN2 ---
Subjective Patient short of breath with nonproductive cough. Reviewed: Care Plan, H&P, Labs Changes from previous H/P or p: No Changes General: Per HPI Objective Vitals Vital Signs Date Time Temp Pulse Resp B/P (MAP) Pulse Ox O2 Delivery O2 Flow Rate FiO2 08/09/24 10:00 100 17 130/76 (94) 95 08/09/24 09:43 Nasal Cannula* 2 28 08/09/24 08:00 97.7 97.7 Intake/Output Intake and Output 08/09/24 07:00 Intake Total 560 ml Output Total 2750 ml Balance -2190 ml Intake Oral 510 ml IV Total 50 ml Output Urine Total 2750 ml # Bowel Movements 2 General Appearance: Alert, Oriented X3, Cooperative, moderate distress HEENT: Atraumatic, PERRLA Lungs: Other (Decreased breath sounds at bases) Cardiovascular: Normal S1, Normal S2, Other (Sinus tachycardia) Abdomen: Normal bowel sounds, Soft, No tenderness, No hepatospenomegaly, No masses Genitourinary: No Apparent Abnormalities Musculoskeletal: Normal sensory function, Normal motor function Neuro: Normal speech Skin: Dry, Intact, Other (Ecchymosis to LLE and LUE) Psych/Mental Status: Mental status NL, Mood NL Medications Current Medications Medications Dose Ordered Sig/Quinn Route Start Time Stop Time Status Last Admin Dose Admin Acetaminophen 650 mg Q6HP PRN PO 08/07/24 23:45 Ondansetron HCl 4 mg Q4HP PRN IV 08/07/24 23:45 Morphine Sulfate 2 mg Q4HPRN PRN IV 08/07/24 23:45 Meropenem 50 ml @ 17 mls/hr Q8HR IV 08/08/24 06:00 08/09/24 05:50 17 MLS/HR Vancomycin HCl 0 ml @ 0 mls/hr UD IV 08/07/24 23:45 Clotrimazole 1 applic Q12HR TOP 08/08/24 10:00 Ipratropium [place] 0.5 mg Q6HWA NEB 08/08/24 06:00 08/09/24 05:36 0.5 MG Levalbuterol HCl 0.625 mg Q6HR NEB 08/08/24 06:00 08/09/24 05:36 0.625 MG Atorvastatin Calcium 20 mg DAILY PO 08/08/24 10:00 08/09/24 08:43 20 MG Levothyroxine Sodium 88 mcg QAM PO 08/08/24 07:00 08/09/24 06:36 88 MCG Pantoprazole Sodium 40 mg DAILY PO 08/08/24 10:00 08/09/24 08:43 40 MG Cholestyramine Resin 4 gm DAILY PO 08/08/24 10:00 08/09/24 09:29 4 GM Cyanocobalamin 1,000 mcg DAILY PO 08/08/24 10:00 08/09/24 08:43 1,000 MCG Mesalamine 800 mg TID PO 08/08/24 06:00 08/09/24 05:50 800 MG Vancomycin HCl 200 ml @ 160 mls/hr Q12H IV 08/08/24 13:00 08/09/24 01:06 160 MLS/HR Enoxaparin Sodium 70 mg BID SC 08/08/24 22:00 08/09/24 08:44 70 MG Guaifenesin/ Dextromethorphan 10 ml Q4HP PRN PO 08/08/24 15:15 08/08/24 22:10 10 ML Prednisone 20 mg DAILY PO 08/09/24 10:00 08/09/24 08:43 20 MG Loperamide HCl 2 mg PRN PRN PO 08/09/24 09:30 08/09/24 10:00 2 MG Laboratory Results Laboratory Tests 08/09/24 05:16 Chemistry Test 08/09/24 05:16 Calcium Level 7.8 mg/dL (8.7-10.4) L Magnesium Level 2.1 mg/dL (1.6-2.6) Coagulation Test 08/08/24 13:56 Prothrombin Time 12.5 sec (9.3-11.8) H Prothrombin Time INR 1.20 (0.9-1.15) H Activated Partial Thromboplast Time 96.1 SEC (24.5-34.5) *H Urinalysis Test 08/07/24 23:42 Urine Color Light-yellow (Yellow) Urine Clarity Clear (Clear) Urine pH 5.0 (5.0-9.0) Urine Specific [place] 1.009 (1.001-1.035) Urine Protein Negative (Negative) Urine Ketones Trace (Negative) Urine Blood Negative /uL (Negative) Urine Nitrite Negative (Negative) Urine Bilirubin Negative (Negative) Urine Urobilinogen Normal mg/dL (Negative) Urine Leukocyte Esterase 2+ /uL (Negative) Urine RBC 1 /hpf (0 - 4) Urine Microscopic WBC 1 /HPF (0-5) Urine Squamous Epithelial Cells Few /hpf (<5) Urine Bacteria Few /hpf (None Seen) H Urine Mucus Few (None Seen) Urine Glucose Normal mg/dL (Normal) Microbiology Microbiology Date/Time Source Procedure Growth Status 08/08/24 06:07 Nose MRSA Screen - Final Complete 08/07/24 21:40 Blood Blood Culture - Preliminary NO GROWTH AFTER 24 HOURS OF INCUBATION. Resulted Labs and/or images reviewed: Labs reviewed by me, Image(s) reviewed by me Assessment/Plan Assessment/Plan Impression: -acute hypoxic respiratory failure -pulmonary embolism to right lung -NSTEMI type 2 secondary to sepsis -DVT to left lower extremity -Crohn's disease -ulcerative colitis -hypokalemia Plan: Events: HR improving. RR improving. -continue bronchodilators -continue empiric antibiotic therapy with Meropenem and vancomycin -continue Lovenox -Continue Prednisone 20mg po daily -repeat labs, chest x-ray in a.m. -long discussion made with the patient's family were bedside. All questions answered Critical care time spent with patient discussing and formulating plan of care: 40 minutes. This does not include time spent performing procedures. This medical document was created using an electronic medical record system with [employer] dictation system. Although this document has been carefully reviewed, there may still be some phonetic and typographical errors. These areas are purely typographical due to imperfections of the software programs, and do not reflect any compromise in the patient's medical care. Plan discussed with: Patient, Other (RN) My Orders Orders - CLEVELAND CASTANON DIRECTOR OF MOBILE MARKETING Procedure Category Date Status Time Guaifenesin-Dextromet PHA 08/08/24 In Process Liquid (Robitussin 15:15 Chest Portable XY 08/09/24 Resulted 04:00 Prednisone Tablet PHA 08/09/24 In Process 10:00 Enoxaparin Sodium PHA 08/08/24 In Process (Lovenox) 22:00 Transfer Orders XFER 08/08/24 Transmitted 16:45 Insert Midline ORDERS 08/09/24 Transmitted 07:41 Loperamide Capsule PHA 08/09/24 In Process (Imodium Capsule) 09:30 Regular Diet DIET 08/09/24 Transmitted Lunch Nystatin Powder PHA 08/09/24 Logged (Mycostatin Powder) 22:00 Basic Metabolic Panel LAB 08/10/24 Verified 04:00 Chest Portable XY 08/10/24 Logged 04:00 Complete Blood Count LAB 08/10/24 Verified 04:00 Date of Service: Aug 09, 2024 Billing Provider: CLEVELAND CASTANON NP Common Visit Codes: [id number] CARE-EACH +30MIN CLEVELAND CASTANON NP Aug 09, 2024 10:25
[2024-08-09] MEDS: NYSTATIN TOPICAL POWDER 15GM TOP SCH (11:00)
--- NOTE | 2024-08-09 13:52 | DVHPN2 ---
Progress Note - Dictate Date Seen: Aug 09, 2024 Medical Necessity Reason Pt with a Central, PICC or Fol: No vital signs Vital Sign Date Time Temp Pulse Resp B/P (MAP) Pulse Ox O2 Delivery O2 Flow Rate FiO2 08/09/24 13:00 122 24 127/55 (79) 94 08/09/24 12:42 Nasal Cannula 1.0 08/09/24 12:42 24 08/09/24 12:00 97.9 97.9 Total Intake and Output 08/08/24 08/08/24 08/09/24 15:00 23:00 07:00 Intake Total 260 ml 300 ml Output Total 900 ml 1850 ml Balance -640 ml -1550 ml medications Current Medications Medications Dose Ordered Sig/Quinn Route Start Time Stop Time Status Last Admin Dose Admin Acetaminophen 650 mg Q6HP PRN PO 08/07/24 23:45 Ondansetron HCl 4 mg Q4HP PRN IV 08/07/24 23:45 Morphine Sulfate 2 mg Q4HPRN PRN IV 08/07/24 23:45 Meropenem 50 ml @ 17 mls/hr Q8HR IV 08/08/24 06:00 08/09/24 05:50 17 MLS/HR Vancomycin HCl 0 ml @ 0 mls/hr UD IV 08/07/24 23:45 Clotrimazole 1 applic Q12HR [facility] 08/08/24 10:00 Ipratropium [place] 0.5 mg Q6HWA [facility] 08/08/24 06:00 08/09/24 12:42 0.5 MG Levalbuterol HCl 0.625 mg Q6HR [facility] 08/08/24 06:00 08/09/24 12:41 0.625 MG Atorvastatin Calcium 20 mg DAILY PO 08/08/24 10:00 08/09/24 08:43 20 MG Levothyroxine Sodium 88 mcg QAM PO 08/08/24 07:00 08/09/24 06:36 88 MCG Pantoprazole Sodium 40 mg DAILY PO 08/08/24 10:00 08/09/24 08:43 40 MG Cholestyramine Resin 4 gm DAILY PO 08/08/24 10:00 08/09/24 09:29 4 GM Cyanocobalamin 1,000 mcg DAILY PO 08/08/24 10:00 08/09/24 08:43 1,000 MCG Mesalamine 800 mg TID PO 08/08/24 06:00 08/09/24 12:46 800 MG Vancomycin HCl 200 ml @ 160 mls/hr Q12H IV 08/08/24 13:00 08/09/24 12:46 160 MLS/HR Enoxaparin Sodium 70 mg BID SC 08/08/24 22:00 08/09/24 08:44 70 MG Guaifenesin/ Dextromethorphan 10 ml Q4HP PRN PO 08/08/24 15:15 08/09/24 10:29 10 ML Prednisone 20 mg DAILY PO 08/09/24 10:00 08/09/24 08:43 20 MG Loperamide HCl 2 mg PRN PRN PO 08/09/24 09:30 08/09/24 10:00 2 MG Nystatin 1 applic BID TOP 08/09/24 11:00 08/09/24 11:00 1 APPLIC laboratory and microbiology Laboratory Tests 08/09/24 05:16 Test 08/09/24 05:16 Range/Units Serum Glucose 120 H 74-106 mg/dL Assessment/Plan 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
[2024-08-10] VITALS (23 sets, daily range): BP systolic 106–143; BP diastolic 50–76; PULSE 79–125; RESP 12–28; TEMP 97.3–98.6; O2SAT 91–100
[2024-08-10 05:23] LABS: Basophils # (auto) 0 10 ^3/uL (0-0.2); Basophils % (auto) 0.3 % (0.0-2.0); Eosinophils # (auto) 0 10 ^3/uL (0-0.8); Hematocrit 28.2 % (36.0-46.0); Hemoglobin 9.6 g/dL (12.2-16.2); Lymphocytes # (auto) 0.5 10 ^3/uL (0.4-5.4); Lymphocytes % (auto) 6.7 % (10.0-50.0); Mean Corpuscular Hemoglobin 32.9 pg (28.0-32.0); Mean Corpuscular Hgb Conc. 33.9 g/dL (32.0-36.0); Mean Corpuscular Volume 97.1 fL (80.0-100.0); Monocytes # (auto) 0.6 10 ^3/uL (0-1.3); Monocytes % (auto) 7.5 % (0.0-12.0); Neutrophils # (auto) 7.1 10 ^3/uL (1.6-8.6); Neutrophils % (auto) 85.5 % (37.0-80.0); Nucleated Red Blood Cells % 0.1 %; Platelet Count (auto) 135 10^3/uL (140-450); Red Cell Distribution Width 14.9 % (11.8-14.3); White Blood Cell 8.3 10^3/uL (4.4-10.8)
[2024-08-10 05:29] LABS: Chloride 106 mmol/L (98-107); Potassium 3.6 mmol/L (3.5-5.1); Sodium 137 mmol/L (136-145)
[2024-08-10 05:30] LABS: Anion Gap 8 (5-15); Carbon Dioxide 23 mmol/L (20-31)
[2024-08-10 05:35] LABS: Glucose 103 mg/dL (74-106)
[2024-08-10 05:36] LABS: BUN/Creatinine Ratio 15.9 (10.0-20.0)
[2024-08-10 05:38] LABS: Blood Urea Nitrogen 7 mg/dL (9-23); Calcium 8.1 mg/dL (8.7-10.4)
--- NOTE | 2024-08-10 06:05 | DVH ---
EXAM: XR Chest, 1 View CLINICAL INDICATION: pna TECHNIQUE: Frontal view of the chest. COMPARISON: XY CHEST PORTABLE on DOS: 08/09/24, XY CHEST PORTABLE on DOS: 08/07/24, XY CHEST PORTABLE on DOS: 07/24/24, XY CHEST PORTABLE on DOS: 07/22/24, XY CHEST PORTABLE on DOS: 07/20/24 FINDINGS: LUNGS AND PLEURAL SPACES: Pulmonary congestion and edema. Pneumonia cannot be excluded. Left basil ar atelectasis or pneumonia. No pneumothorax. HEART: Unremarkable. No cardiomegaly. MEDIASTINUM: Unremarkable. Normal mediastinal contour. BONES/JOINTS: Unremarkable. No acute fracture. OTHER FINDINGS: . . .. IMPRESSION: 1. Pulmonary congestion and edema. Pneumonia cannot be excluded. 2. Left basilar atelectasis or pneumonia.
--- NOTE | 2024-08-10 10:16 | DVHPN2 ---
Subjective Patient short of breath with nonproductive cough. Reviewed: Care Plan, H&P, Labs Changes from previous H/P or p: No Changes General: Per HPI Objective Vitals Vital Signs Date Time Temp Pulse Resp B/P (MAP) Pulse Ox O2 Delivery O2 Flow Rate FiO2 08/10/24 10:00 118 20 106/74 (85) 95 08/10/24 08:00 98.4 98.4 08/10/24 08:00 Nasal Cannula* 2 28 Intake/Output Intake and Output 08/10/24 07:00 Intake Total 1350 ml Output Total 2100 ml Balance -750 ml Intake Oral 800 ml IV Total 550 ml Output Urine Total 2100 ml # Bowel Movements 2 General Appearance: Alert, Oriented X3, Cooperative, moderate distress HEENT: Atraumatic, PERRLA Lungs: Other (Decreased breath sounds at bases) Cardiovascular: Normal S1, Normal S2, Other (Sinus tachycardia) Abdomen: Normal bowel sounds, Soft, No tenderness, No hepatospenomegaly, No masses Genitourinary: No Apparent Abnormalities Musculoskeletal: Normal sensory function, Normal motor function Neuro: Normal speech Skin: Dry, Intact, Other (Ecchymosis to LLE and LUE) Psych/Mental Status: Mental status NL, Mood NL Medications Current Medications Medications Dose Ordered Sig/Quinn Route Start Time Stop Time Status Last Admin Dose Admin Acetaminophen 650 mg Q6HP PRN PO 08/07/24 23:45 Ondansetron HCl 4 mg Q4HP PRN IV 08/07/24 23:45 Morphine Sulfate 2 mg Q4HPRN PRN IV 08/07/24 23:45 Meropenem 50 ml @ 17 mls/hr Q8HR IV 08/08/24 06:00 08/10/24 06:27 17 MLS/HR Vancomycin HCl 0 ml @ 0 mls/hr UD IV 08/07/24 23:45 Clotrimazole 1 applic Q12HR TOP 08/08/24 10:00 Ipratropium [place] 0.5 mg Q6HWA NEB 08/08/24 06:00 08/10/24 05:54 0.5 MG Levalbuterol HCl 0.625 mg Q6HR NEB 08/08/24 06:00 08/10/24 05:54 0.625 MG Atorvastatin Calcium 20 mg DAILY PO 08/08/24 10:00 08/10/24 09:58 20 MG Levothyroxine Sodium 88 mcg QAM PO 08/08/24 07:00 08/10/24 06:27 88 MCG Pantoprazole Sodium 40 mg DAILY PO 08/08/24 10:00 08/10/24 09:58 40 MG Cholestyramine Resin 4 gm DAILY PO 08/08/24 10:00 08/10/24 09:58 4 GM Cyanocobalamin 1,000 mcg DAILY PO 08/08/24 10:00 08/10/24 09:58 1,000 MCG Mesalamine 800 mg TID PO 08/08/24 06:00 08/10/24 06:27 800 MG Vancomycin HCl 200 ml @ 160 mls/hr Q12H IV 08/08/24 13:00 08/10/24 00:54 160 MLS/HR Guaifenesin/ Dextromethorphan 10 ml Q4HP PRN PO 08/08/24 15:15 08/10/24 09:59 10 ML Prednisone 20 mg DAILY PO 08/09/24 10:00 08/10/24 09:58 20 MG Loperamide HCl 2 mg PRN PRN PO 08/09/24 09:30 08/09/24 10:00 2 MG Nystatin 1 applic BID TOP 08/09/24 11:00 08/10/24 10:08 1 APPLIC Laboratory Results Laboratory Tests 08/10/24 04:48 Chemistry Test 08/10/24 04:48 Calcium Level 8.1 mg/dL (8.7-10.4) L Urinalysis Test 08/07/24 23:42 Urine Color Light-yellow (Yellow) Urine Clarity Clear (Clear) Urine pH 5.0 (5.0-9.0) Urine Specific [place] 1.009 (1.001-1.035) Urine Protein Negative (Negative) Urine Ketones Trace (Negative) Urine Blood Negative /uL (Negative) Urine Nitrite Negative (Negative) Urine Bilirubin Negative (Negative) Urine Urobilinogen Normal mg/dL (Negative) Urine Leukocyte Esterase 2+ /uL (Negative) Urine RBC 1 /hpf (0 - 4) Urine Microscopic WBC 1 /HPF (0-5) Urine Squamous Epithelial Cells Few /hpf (<5) Urine Bacteria Few /hpf (None Seen) H Urine Mucus Few (None Seen) Urine Glucose Normal mg/dL (Normal) Microbiology Microbiology Date/Time Source Procedure Growth Status 08/08/24 12:00 Sputum Gram Stain - Final Resulted 08/08/24 12:00 Sputum Respiratory Culture - Preliminary Resulted 08/08/24 06:07 Nose MRSA Screen - Final Complete 08/07/24 21:40 Blood Blood Culture - Preliminary NO GROWTH AFTER 48 HOURS OF INCUBATION. Resulted Labs and/or images reviewed: Labs reviewed by me, Image(s) reviewed by me Assessment/Plan Assessment/Plan Impression: -acute hypoxic respiratory failure -pulmonary embolism to right lung -NSTEMI type 2 secondary to sepsis -DVT to left lower extremity -Crohn's disease -ulcerative colitis -hypokalemia -contact dermatitis to inguinal area Plan: Events: No events overnight. Nasal cannula at 2 L/min. -continue bronchodilators -continue empiric antibiotic therapy with Meropenem and vancomycin -stop Lovenox, transition to Eliquis -Continue Prednisone 20mg po daily -repeat labs in a.m.. -PUD prophylaxis -topical antifungal -social service consultation for discharge planning with home health services and O2 -transfer to telemetry unit -long discussion made with the patient's family were bedside. All questions answered Total time spent with patient discussing and formulating plan of care: 35 minutes. This medical document was created using an electronic medical record system with [employer] dictation system. Although this document has been carefully reviewed, there may still be some phonetic and typographical errors. These areas are purely typographical due to imperfections of the software programs, and do not reflect any compromise in the patient's medical care. Plan discussed with: Patient, Other (RN) My Orders Orders - CLEVELAND CASTANON NP Procedure Category Date Status Time Nystatin Powder PHA 08/09/24 In Process (Mycostatin Powder) 11:00 Chest Portable XY 08/10/24 Resulted 04:00 Transfer Orders XFER 08/10/24 Transmitted 10:05 * Used Car Make Ready Mechanic CONS 08/10/24 Transmitted Consult Ss Eval For Home CONS 08/10/24 Transmitted Oxygen Basic Metabolic Panel LAB 08/11/24 Verified 04:00 Complete Blood Count LAB 08/10/24 Transmitted 10:05 Apixaban (Eliquis) PHA 08/10/24 Transmitted 22:00 Apixaban (Eliquis) PHA 08/10/24 Transmitted 22:00 Date of Service: Aug 10, 2024 Billing Provider: CLEVELAND CASTANON NP Common Visit Codes: [id number] INP/OBS CARE(HIGH) CLEVELAND CASTANON NP Aug 10, 2024 10:16
[2024-08-10 10:49] LABS: Basophils # (auto) 0 10 ^3/uL (0-0.2); Basophils % (auto) 0.3 % (0.0-2.0); Eosinophils # (auto) 0 10 ^3/uL (0-0.8); Eosinophils % (auto) 0.1 % (0.0-7.0); Hematocrit 32.6 % (36.0-46.0); Hemoglobin 10.8 g/dL (12.2-16.2); Lymphocytes # (auto) 0.6 10 ^3/uL (0.4-5.4); Lymphocytes % (auto) 5.9 % (10.0-50.0); Mean Corpuscular Hemoglobin 32.8 pg (28.0-32.0); Mean Corpuscular Hgb Conc. 33.2 g/dL (32.0-36.0); Mean Corpuscular Volume 98.7 fL (80.0-100.0); Monocytes # (auto) 0.6 10 ^3/uL (0-1.3); Monocytes % (auto) 5.4 % (0.0-12.0); Neutrophils # (auto) 9.1 10 ^3/uL (1.6-8.6); Neutrophils % (auto) 88.3 % (37.0-80.0); Platelet Count (auto) 150 10^3/uL (140-450); Red Cell Distribution Width 15.1 % (11.8-14.3); White Blood Cell 10.3 10^3/uL (4.4-10.8)
--- NOTE | 2024-08-10 20:16 | DVHPN2 ---
Progress Note - Dictate Date Seen: Aug 10, 2024 Medical Necessity Reason Pt with a Central, PICC or Fol: Yes The following are medically ne: Pool Catheter Reason for pool catheter: Strict I&O Subjective Patient seen and examined at bedside. Remains on supplemental oxygen Overnight events reviewed. vital signs Vital Sign Date Time Temp Pulse Resp B/P (MAP) Pulse Ox O2 Delivery O2 Flow Rate FiO2 08/10/24 19:05 110 18 100 08/10/24 18:55 Nasal Cannula 1.0 08/10/24 18:55 24 08/10/24 16:58 97.8 133/72 (92) 97.8 Total Intake and Output 08/09/24 08/09/24 08/10/24 15:00 23:00 07:00 Intake Total 250 ml 550 ml 550 ml Output Total 1500 ml 600 ml Balance 250 ml -950 ml -50 ml medications Current Medications Medications Dose Ordered Sig/Quinn Route Start Time Stop Time Status Last Admin Dose Admin Acetaminophen 650 mg Q6HP PRN PO 08/07/24 23:45 Ondansetron HCl 4 mg Q4HP PRN IV 08/07/24 23:45 Morphine Sulfate 2 mg Q4HPRN PRN IV 08/07/24 23:45 Meropenem 50 ml @ 17 mls/hr Q8HR IV 08/08/24 06:00 08/10/24 14:43 17 MLS/HR Vancomycin HCl 0 ml @ 0 mls/hr UD IV 08/07/24 23:45 Ipratropium [place] 0.5 mg Q6HWA [facility] 08/08/24 06:00 08/10/24 18:55 0.5 MG Levalbuterol HCl 0.625 mg Q6HR [facility] 08/08/24 06:00 08/10/24 18:55 0.625 MG Atorvastatin Calcium 20 mg DAILY PO 08/08/24 10:00 08/10/24 09:58 20 MG Levothyroxine Sodium 88 mcg QAM PO 08/08/24 07:00 08/10/24 06:27 88 MCG Pantoprazole Sodium 40 mg DAILY PO 08/08/24 10:00 08/10/24 09:58 40 MG Cholestyramine Resin 4 gm DAILY PO 08/08/24 10:00 08/10/24 09:58 4 GM Cyanocobalamin 1,000 mcg DAILY PO 08/08/24 10:00 08/10/24 09:58 1,000 MCG Mesalamine 800 mg TID PO 08/08/24 06:00 08/10/24 14:49 800 MG Vancomycin HCl 200 ml @ 160 mls/hr Q12H IV 08/08/24 13:00 08/10/24 13:22 160 MLS/HR Guaifenesin/ Dextromethorphan 10 ml Q4HP PRN PO 08/08/24 15:15 08/10/24 09:59 10 ML Prednisone 20 mg DAILY PO 08/09/24 10:00 08/10/24 09:58 20 MG Loperamide HCl 2 mg PRN PRN PO 08/09/24 09:30 08/09/24 10:00 2 MG Nystatin 1 applic BID TOP 08/09/24 11:00 08/10/24 10:08 1 APPLIC Apixaban 10 mg BID PO 08/10/24 22:00 08/17/24 10:01 Apixaban 5 mg BID PO 08/17/24 22:00 objective Gen.: Patient lying in bed in no apparent distress. On supplemental oxygen. Head: Normocephalic, atraumatic. Eyes: EOMI/PERRLA. Ears: Normal hearing. Normal anatomy. Neck/trachea: Trachea midline, supple. Nose: Normal external anatomy. Mouth: Moist mucous membranes. Chest: Decreased air entry bilaterally. No wheezing or rhonchi. Cardiovascular: Positive S1, positive S2. Regular rate and rhythm. Abdomen: Positive bowel sounds in all 4 quadrants. Soft, non-tender, non- distended. : Deferred. Rectal: Deferred. Skin: Warm, dry. Intact. Extremities: 2+ radial pulses bilaterally. No lower extremity edema. Neuro: Awake, alert, oriented x3. No gross motor or sensory deficits. Cranial nerves II through XII intact. Gait not assessed. laboratory and microbiology Laboratory Tests 08/10/24 10:30 08/10/24 04:48 Test 08/10/24 04:48 Range/Units Serum Glucose 103 74-106 mg/dL Assessment/Plan Impression: Acute pulmonary embolism Deep venous thrombosis Pulmonary infarcts Acute hypoxic respiratory failure Dependence on supplemental oxygen Events: Pt seen and examined at bedside. On supplemental oxygen at 1 LPM NC Taper O2 as tolerated Pt with productive cough Antitussive RS Incentive spirometry Continue antibiotics Continue bronchodilators Continue steroids - Prednisone PO Continue Lovenox - transition to Eliquis Recommend 6-12 months Labs and imaging reviewed CXR demonstrates Pulmonary congestion and edema. Left basilar atelectasis or pneumonia Echo showing no signs of RV strain Plan: Supplemental oxygen Titrate to keep O2 sats above 92%. Supportive care Continue antibiotics Continue bronchodilators Continue steroids - Prednisone PO PT eval (pt had several syncopal episodes, ?PE-related) f/up with other specialists per primary) Monitor renal function. Monitor electrolytes. Supplement as necessary. Monitor ins and outs. Prognosis: Poor given patient's multiple co-morbidities. Condition: Critical Rest of plan per hospitalist and other consultants. A total of 35 minutes of critical care time was spent reviewing the patient record, examining the patient, making a diagnostic and therapeutic plan, discussing this plan with the medical personnel, following up on diagnostic studies and following the patient for clinical stability excluding any and all procedures. At least 50% of this time was spent in direct, [id number] contact. Thank you, MERRICK Tyson, for allowing me to participate in this patient's care. Further recommendations will depend on the patient's clinical course. Please do not hesitate to contact me if you have any questions or concerns. This medical document was created using an electronic medical record system with [employer] dictation system. Although these documentations are being carefully reviewed, there may still be some phonetic and typographical changes. The errors are purely typographical, due to imperfection on the software program, and do not reflect any compromise in the patient's medical care. Dietary Evaluation Review Comments: 1) Consider 2gm Na diet 2) Ensure Enlive 240ml BID if PO intake <50% 3) Continue current plan of care Expected Outcomes/Goals: Pt will meet 75% estimated needs Fu 3-5 days Plan discussed with: Patient, Other (LILIA Sweet) Critical Care Time(min): 35 SAM DURAN MD Aug 10, 2024 20:16
[2024-08-10] MEDS: APIXABAN 5 MG TAB PO SCH (21:02)
[2024-08-11] VITALS (13 sets, daily range): BP systolic 124–141; BP diastolic 59–86; PULSE 100–132; RESP 16–22; TEMP 36.4; O2SAT 94–100
[2024-08-11] MEDS ORDERED: APIX5TAB PO (10:44)
[2024-08-11] MEDS ORDERED: CEFD300C2 PO (10:44)
[2024-08-11] MEDS ORDERED: ALBU108A5 IN (11:03)
[2024-08-11 11:42] LABS: Basophils # (auto) 0 10 ^3/uL (0-0.2); Basophils % (auto) 0.1 % (0.0-2.0); Eosinophils # (auto) 0.1 10 ^3/uL (0-0.8); Eosinophils % (auto) 0.7 % (0.0-7.0); Hematocrit 32.6 % (36.0-46.0); Hemoglobin 10.5 g/dL (12.2-16.2); Lymphocytes # (auto) 0.4 10 ^3/uL (0.4-5.4); Lymphocytes % (auto) 5.1 % (10.0-50.0); Mean Corpuscular Hemoglobin 31.6 pg (28.0-32.0); Mean Corpuscular Hgb Conc. 32.3 g/dL (32.0-36.0); Mean Corpuscular Volume 97.8 fL (80.0-100.0); Monocytes # (auto) 0.7 10 ^3/uL (0-1.3); Monocytes % (auto) 8.1 % (0.0-12.0); Neutrophils # (auto) 7.2 10 ^3/uL (1.6-8.6); Nucleated Red Blood Cells % 0.1 %; Platelet Count (auto) 166 10^3/uL (140-450); Red Blood Cells 3.33 10^6/uL (4.0-5.20); White Blood Cell 8.4 10^3/uL (4.4-10.8)
[2024-08-11 11:51] LABS: Chloride 106 mmol/L (98-107); Sodium 137 mmol/L (136-145)
[2024-08-11 11:57] LABS: BUN/Creatinine Ratio 14.9 (10.0-20.0); Carbon Dioxide 23 mmol/L (20-31); Glucose 83 mg/dL (74-106)
[2024-08-11 11:59] LABS: Anion Gap 8 (5-15); Blood Urea Nitrogen 7 mg/dL (9-23); Calcium 8.5 mg/dL (8.7-10.4); Potassium 3.3 mmol/L (3.5-5.1)
--- NOTE | 2024-08-11 13:32 | DVHDS2 ---
Discharge Summary Date of Admission Aug 07, 2024 at 23:32 Date of Discharge: Aug 11, 2024 Admitting Diagnosis Acute hypoxic respiratory failure Labs/Diagnostic Data: Laboratory Results Test 08/11/24 13:00 08/11/24 11:22 08/09/24 05:16 08/08/24 13:56 White Blood Count 8.4 10^3/uL (4.4-10.8) Red Blood Count 3.33 10^6/uL (4.0-5.20) Hemoglobin 10.5 g/dL (12.2-16.2) Hematocrit 32.6 % (36.0-46.0) Mean Corpuscular Volume 97.8 fL (80.0-100.0) Mean Corpuscular Hemoglobin 31.6 pg (28.0-32.0) Mean Corpuscular Hemoglobin Concent 32.3 g/dL (32.0-36.0) Red Cell Distribution Width 15.0 % (11.8-14.3) Platelet Count 166 10^3/uL (140-450) Mean Platelet Volume 7.3 fL (6.9-10.8) Neutrophils (%) (Auto) 86.0 % (37.0-80.0) Lymphocytes (%) (Auto) 5.1 % (10.0-50.0) Monocytes (%) (Auto) 8.1 % (0.0-12.0) Eosinophils (%) (Auto) 0.7 % (0.0-7.0) Basophils (%) (Auto) 0.1 % (0.0-2.0) Neutrophils # (Auto) 7.2 10 ^3/uL (1.6-8.6) Lymphocytes # (Auto) 0.4 10 ^3/uL (0.4-5.4) Monocytes # (Auto) 0.7 10 ^3/uL (0-1.3) Eosinophils # (Auto) 0.1 10 ^3/uL (0-0.8) Basophils # (Auto) 0 10 ^3/uL (0-0.2) Nucleated Red Blood Cells 0.1 % Sodium Level 137 mmol/L (136-145) Potassium Level 3.3 mmol/L (3.5-5.1) Chloride Level 106 mmol/L (98-107) Carbon Dioxide Level 23 mmol/L (20-31) Anion Gap 8 (5-15) Blood Urea Nitrogen 7 mg/dL (9-23) Creatinine 0.47 mg/dL (0.550-1.02) Glomerular Filtration Rate Calc 100 mL/min (>90) BUN/Creatinine Ratio 14.9 (10.0-20.0) Serum Glucose 83 mg/dL (74-106) Calcium Level 8.5 mg/dL (8.7-10.4) Magnesium Level 2.1 mg/dL (1.6-2.6) Prothrombin Time 12.5 sec (9.3-11.8) Prothrombin Time INR 1.20 (0.9-1.15) Activated Partial Thromboplast Time 96.1 SEC (24.5-34.5) Test 08/08/24 09:57 08/08/24 08:46 08/08/24 00:20 08/07/24 23:54 Blood Gas Specimen Type Arterial Blood Gas Sample Site Left radial Blood Gas Patient Temperature 37.0 Arterial Blood Date Drawn [id number] Arterial Blood pH 7.505 (7.350-7.450) Arterial Blood Partial Pressure CO2 26.4 mmHg (32.0-45.0) Arterial Blood Partial Pressure O2 53.3 mmHg (83.0-108.0) Arterial Blood HCO3 20.4 mmol/L (21.0-28.0) Arterial Blood Oxygen Saturation 88.8 % (94.0-98.0) Arterial Blood Base Excess -1.7 mmol/L (-2.0-3.0) Arterial Blood Oxyhemoglobin 88.1 % (94.0-98.0) Arterial Blood Carboxyhemoglobin 0.5 % (0.5-1.5) Arterial Blood Methemoglobin 0.3 % (0.0-1.5) Mian Test Yes Blood Gas Total Hemoglobin 10.80 g/dL (12.0-16.0) Blood Gas Liter Flow 0.00 Blood Gas Modality Room air FiO2 % 21.0 Blood Gas Critical Value Read Back Yes Blood Gas Notified Whom Santiago pennington Blood Gas Notified Time [id number] Blood Gas Notified By Jed francis Total Bilirubin 0.8 mg/dL (0.2-1.0) Aspartate Amino Transferase (AST) 21 U/L (13-40) Alanine Aminotransferase (ALT) 27 U/L (7-40) Alkaline Phosphatase 63 U/L (46-116) C-Reactive Protein High Sensitivity 10.94 mg/dL (<1.0) Total Protein 5.1 g/dL (5.7-8.2) Albumin 3.0 g/dL (3.2-4.8) Lactic Acid Level 0.8 mmol/L (0.4-2.0) Influenza Type A Antigen Negative (Negative) Influenza Type B Antigen Negative (Negative) SARS-CoV-2 Antigen (Rapid) Negative (NEGATIVE) Test 08/07/24 23:42 08/07/24 21:01 08/07/24 20:42 Urine Color Light-yellow (Yellow) Urine Clarity Clear (Clear) Urine pH 5.0 (5.0-9.0) Urine Specific Coleman 1.009 (1.001-1.035) Urine Protein Negative (Negative) Urine Ketones Trace (Negative) Urine Blood Negative /uL (Negative) Urine Nitrite Negative (Negative) Urine Bilirubin Negative (Negative) Urine Urobilinogen Normal mg/dL (Negative) Urine Leukocyte Esterase 2+ /uL (Negative) Urine RBC 1 /hpf (0 - 4) Urine Microscopic WBC 1 /HPF (0-5) Urine Squamous Epithelial Cells Few /hpf (<5) Urine Bacteria Few /hpf (None Seen) Urine Mucus Few (None Seen) Urine Glucose Normal mg/dL (Normal) Troponin I High Sensitivity 41 ng/L (</=34) Urine Opiates Screen Neg (NEGATIVE) Urine Fentanyl Screen Neg (NEGATIVE) Urine Barbiturates Screen Neg (NEGATIVE) Urine Phencyclidine Screen Neg (NEGATIVE) Urine Amphetamines Screen Neg (NEGATIVE) Urine Benzodiazepines Screen Neg (NEGATIVE) Urine Cocaine Screen Neg (NEGATIVE) Urine Cannabinoids Screen Neg (NEGATIVE) Venous Blood pH 7.445 (7.320-7.430) Venous Blood pCO2 at Patient Temp 35.1 mmHg (38.0-54.0) Venous Blood pO2 at Patient Temp < 36.5 mmHg (23.0-48.0) Venous Blood HCO3 23.6 mmol/L (22.0-29.0) Venous Bld O2 Saturation (Measured) 50.5 % (60.0-85.0) Venous Blood Base Excess -0.1 mmol/L (-2.0-3.0) Venous Blood Total Hemoglobin 11.2 g/dL (12.0-16.0) Venous Blood Oxyhemoglobin 49.7 % (0.0-79.0) Venous Blood Carboxyhemoglobin 1.3 % (0.5-1.5) Venous Blood Methemoglobin 0.3 % (0.0-1.5) Blood Gas Comments Hemoglobin A1c 5.4 % A1C (<5.7) Phosphorus Level 2.3 mg/dL (2.4-5.1) Direct Bilirubin 0.4 mg/dL (<0.3) B-Type Natriuretic Peptide 74.32 pg/mL (0-100) Vitamin B12 Level 587 pg/mL (211-911) Vitamin D 25-Hydroxy 39.4 ng/mL (30.0-100) Thyroid Stimulating Hormone (TSH) 2.14 uIU/mL (0.55-4.78) Other Laboratory Tests 08/11/24 11:22 Brief Hx & Hospital Course: History of Present Illness Tia Dias is a 74 year old female patient who presents to ED with chief complaint of acute dyspnea in functional class IV which suddenly appeared the day of her admission. Associated she also presented productive cough with dark green phlegm, chills and worsening of left lower limb swelling for the past three days before her admission. Patient reports recent admission due to COVID pneumonia, was discharged on 07/27/2024 in continued with prednisone 20 mg p.o. daily (she normally takes 10 mg p.o. daily due to her rheumatoid arthritis). Denies palpitation, syncope, chest pain, nausea, vomiting, diarrhea, constipation, bleeding, recent travel, sick contacts and motor or sensory deficits. Course of hospitalization: Patient is PE study was positive for full pulmonary embolisms to right lung. Patient was also found to have DVT to left lower extremity. CTA also revealed multifocal pneumonia. Patient was started on empiric antibiotic therapy, anticoagulation with heparin drip. Cardiology consultation was obtained. Echocardiogram was performed. Patient was transitioned to Eliquis given there are no indications for thrombectomy at this time. Patient was respiratory status improved for which she was on 1-2 L of oxygen per minute. She was requesting to be discharged home. Room air ABG was performed with the patient qualified for home O2. Patient will be discharged home with oxygen at 2 L/min. She will be continued on anticoagulation with Eliquis. Antibiotic therapy we will continued with cefdinir 300 mg p.o. b.i.d.. Patient was also be provided a rescue inhaler. 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 Physical examination General: Alert and Oriented x3. No acute distress. Well-nourished. Eyes: EOMI. Anicteric. HENT: Moist mucous membranes. Lungs: Clear to auscultation bilaterally. No accessory muscle use. Cardiovascular: Regular rate and rhythm. No murmur. No JVD. Abdomen: Soft, non-tender and non-distended. No palpable masses. Extremities: No edema. Non-tender. Skin: No rashes or lesions. Warm. Neurologic: No focal neurological deficits. CN II-XII grossly intact, but not individually tested. Psychiatric: Cooperative. Appropriate mood and affect. Total time spent with patient discussing and formulating plan of care: 35 minutes. This medical document was created using an electronic medical record system with [employer] dictation system. Although this document has been carefully reviewed, there may still be some phonetic and typographical errors. These areas are purely typographical due to imperfections of the software programs, and do not reflect any compromise in the patient's medical care. Consults/Reason for consult Cardiology: Assess patient for possible thrombectomy for pulmonary embolism. Condition at Discharge: Guarded Final Diagnosis/Problems List PE Secondary diagnosis: -acute hypoxic respiratory failure -pulmonary embolism to right lung -NSTEMI type 2 secondary to sepsis -DVT to left lower extremity -Crohn's disease -ulcerative colitis -hypokalemia -contact dermatitis to inguinal area Discharge Disposition: Home Discharge Instruct/Medications Diet: Cardiac 2g Na,low cholest Activity: No Restrictions, As Tolerated Follow Up/Referral: PCP in 1-2 weeks Medications: Cefdinir 300mg po bid x 7 days Eliquis 5mg per protocol for PE 36 Discharge Statement: "Patient was advised to return to the ER or call 911 if any headaches, dizziness, shortness of breath, chest pain, abdominal pain, bleeding, fevers, or worsening of medical condition. Patient was counseled about treatment plan, medications, possible side effects, patientverbalized understanding. All questions were answered to the best of my ability. This discharge took greater then 30 minutes in planning, reviewing documentation, counseling the patient, and discussing with other team members." ASSESSMENT ASSESSMENT Assessment PE Date of Service: Aug 11, 2024 Billing Provider: CLEVELAND CASTANON NP Common Visit Codes: 70524-QWQ/OBS DISCH DAY >30min CLEVELAND CASTANON NP Aug 11, 2024 13:32
[2024-08-11] MEDS: POTASSIUM EFFERVESENT TAB 25 MEQ PO ONE (14:03)
[2024-08-17] MEDS ORDERED: APIXABAN 5 MG TAB PO SCH (22:00)
== END 2024-08-11 17:15 | disposition home or self-care (01) | DRG 871 ==
LOC: EDBD 20:01 → ER 20:01 → OVERFLOW 23:32 → TELE-WESTW 08-08 03:07 → ICU CENTRL 08-08 18:58 → DOU IN ICU 08-10 05:14 → TELE-WESTW 08-10 17:13
PROVIDERS: ADMIT Nurse Practitioner Acute Care; ATTEND Nurse Practitioner Acute Care
PROC: 05HA33Z Insertion of Infusion Device into Left Brachial Vein, Percutaneous Approach (ICD-10-PCS; principal; 2024-08-09)
PROC: B54NZZA Ultrasonography of Left Upper Extremity Veins, Guidance (ICD-10-PCS; 2024-08-09)
DX: A41.9 Sepsis, unspecified organism (principal); I21.A1 Myocardial infarction type 2; I26.99 Other pulmonary embolism without acute cor pulmonale; J96.01 Acute respiratory failure with hypoxia; J15.9 Unspecified bacterial pneumonia; J15.69 Pneumonia due to other Gram-negative bacteria; K51.90 Ulcerative colitis, unspecified, without complications; I82.412 Acute embolism and thrombosis of left femoral vein; L03.116 Cellulitis of left lower limb; E78.5 Hyperlipidemia, unspecified; K21.9 Gastro-esophageal reflux disease without esophagitis; L25.9 Unspecified contact dermatitis, unspecified cause; I11.0 Hypertensive heart disease with heart failure; Z20.822 Contact with and (suspected) exposure to COVID-19; I50.9 Heart failure, unspecified; E87.6 Hypokalemia; M06.9 Rheumatoid arthritis, unspecified; M41.9 Scoliosis, unspecified; E03.9 Hypothyroidism, unspecified; Z90.49 Acquired absence of other specified parts of digestive tract; Z88.6 Allergy status to analgesic agent; Z88.1 Allergy status to other antibiotic agents; Z88.0 Allergy status to penicillin; Z88.2 Allergy status to sulfonamides; Z88.8 Allergy status to other drugs, medicaments and biological substances; Z79.1 Long term (current) use of non-steroidal anti-inflammatories (NSAID); Z79.899 Other long term (current) drug therapy; Z99.81 Dependence on supplemental oxygen; Z79.01 Long term (current) use of anticoagulants
CPT/HCPCS: 36415; 36600; 71045; 71275; 80048; 80053; 80076; 80202; 80307; 81001; 82306; 82607; 82805; 83036; 83605; 83735; 83880; 84100; 84443; 84484; 85025; 85610; 85730; 86141; 87040; 87070; 87077; 87081; 87086; 87186; 87205; 87426; 87804; 93005; 93306; 93970; 94640; 96361; 96365; 99291; G0378; J2185; J3480